=== PATIENT | female | born 1995 | race Caucasian/White ===

== ENCOUNTER → 2023-05-30 11:00 | Outpatient (CLI) | payer MEDICAID, SELFPAY | PROVIDERS: PCP Nurse Practitioner Family; Visit Provider Nurse Practitioner Family | DX: N89.8 Other specified noninflammatory disorders of vagina (principal) | CPT/HCPCS: 87086 ==

== ENCOUNTER 2023-11-27 20:39 | Outpatient (CLI) | payer MEDICAID, SELFPAY ==
[2023-11-27 17:09] LABS: Basophils # 0.1 K/mm3 (0-0.2); Basophils % 0.9 % (0.1-2.0); Eosinophils # 0.1 K/mm3 (0.0-0.4); Eosinophils % 1.8 % (0.1-12.0); Hematocrit 46.1 % (37.0-47.0); Hemoglobin 15.6 g/dL (12.2-16.2); Lymphocytes # 1.6 K/mm3 (0.7-4.5); Lymphocytes % 21.5 % (10-50); Mean Corpuscular HGB Conc 33.8 g/dL (31.8-35.4); Mean Corpuscular Volume 91.6 fl (81-99); Mean Platelet Volume 8.5 fl (7.4-10.4); Monocytes # 0.7 K/mm3 (0.1-1.0); Monocytes % 9.2 % (1.7-9.3); Neutrophils % 66.6 % (37.0-80.0); Platelet Count 359 K/mm3 (142-424); Red Blood Count 5.04 M/mm3 (4.20-5.40); Red Cell Distribution Width 12.9 % (11.5-17.5); White Blood Count 7.5 K/mm3 (4.8-10.8)
[2023-11-27 17:53] LABS: Free T4 (Free Thyroxine) 1.48 ng/dl (0.78-2.19)
[2023-11-27 19:01] LABS: Chloride 103 mmol/L (98-107); Potassium 4.4 mmoL/L (3.5-5.1); Sodium 137 mmol/L (136-145)
[2023-11-27 19:03] LABS: Blood Urea Nitrogen 15 mg/dl (7-17); Estimated Glomerular Filt Rate 98 ml/min (>60); GFR (African American) 119 ML/MIN (>60)
[2023-11-27 19:04] LABS: Alanine Aminotransferase 31 U/L (12-78); Albumin Level 4.7 g/dl (3.5-5.0); Albumin/Globulin Ratio 1.2 (1.1-1.8); Alkaline Phosphatase 65 U/L (38-126); Anion Gap 15.4 mEq/L (5-15); Aspartate Amino Transferase 38 U/L (14-36); Bilirubin,Total 0.6 mg/dl (0.2-1.3); Calcium 9.1 mg/dl (8.4-10.2); Carbon Dioxide 23 mmol/L (22.0-30.0); Globulin 3.8 g/dL (1.3-3.2); Glucose 59 mg/dl (74-100); Total Protein,Serum 8.5 g/dl (6.3-8.2)
[2023-11-27 19:23] LABS: 25-OH Vitamin D, Total 29.2 ng/mL (30-100); Triiodothryronine (T3) Uptake 33 % (23.5-40.5)
[2023-11-27 19:24] LABS: T4 (Thyroxine) 10.6 ug/dl (5.53-11.0)
[2023-11-27 19:38] LABS: Thyroid Stimulating Hormone 1.17 uIU/mL (0.465-4.68)
[2023-11-27 19:57] LABS: Vitamin B12 647 pg/mL (239-931)
[2023-11-28 08:37] LABS: FSH 1.4 mIU/mL (.); LH 2.2 mIU/mL (.); Progesterone 6.3 ng/mL (.)
[2023-12-04 02:10] LABS: Estrogen 177 pg/mL (.)
== END 2023-11-27 23:59 ==
LOC: LAB.DROPOF 20:39
PROVIDERS: PCP Nurse Practitioner Family; Visit Provider Nurse Practitioner Family
DX: R53.83 Other fatigue (principal); E55.9 Vitamin D deficiency, unspecified; R05.9 Cough, unspecified; J45.909 Unspecified asthma, uncomplicated; Z79.899 Other long term (current) drug therapy
CPT/HCPCS: 80053; 82306; 82607; 82672; 83001; 83002; 84144; 84436; 84439; 84443; 84479; 85025

== ENCOUNTER → 2024-01-28 13:47 | Outpatient (CLI) | payer MEDICAID, SELFPAY | LOC: SL 13:48 | PROVIDERS: PCP Nurse Practitioner Family; Visit Provider Nurse Practitioner Family | DX: G47.30 Sleep apnea, unspecified (principal); R53.83 Other fatigue | CPT/HCPCS: G0399 ==

== ENCOUNTER 2024-04-14 07:25 | Inpatient (IN) | payer MEDICAID, SELFPAY ==
[2024-04-14] VITALS (7 sets, daily range): BP systolic 100–131; BP diastolic 59–91; PULSE 79–100; RESP 15–22; TEMP 36.5–36.8; O2SAT 95–100; BMI 35.8; BMI 39.1
--- NOTE | 2024-04-14 07:35 | CT_ITS ---
FINAL REPORT CLINICAL HISTORY: diffuse abd pain - recent diverticulitis dx COMPARISON: Report dated 04/10/2024, films dated 03/09/2024. FINDINGS: CT OF THE ABDOMEN AND PELVIS WITH CONTRAST Axial CT images of the abdomen and pelvis were obtained after the administration of IV contrast. Coronal and sagittal reformatted images were also obtained and reviewed. This study was performed with techniques to keep radiation doses as low as reasonably achievable (ALARA). Individualized dose reduction techniques using automated exposure control or adjustment of mA and/or kV according to the patient's size were employed. Abdomen: The lung bases are clear. The heart is normal in size. There is moderate pneumoperitoneum present, significantly increased since the prior exam of April 10. The liver has an unremarkable appearance, without evidence of mass or biliary ductal dilatation. The spleen is unremarkable. No adrenal mass is present. The pancreas has an unremarkable appearance. The kidneys are normal, without evidence of mass or hydronephrosis. The aorta is normal in caliber. There is no free fluid or adenopathy. No mass or abnormal fluid collection is seen. Pelvis: The appendix is normal in appearance. There is sigmoid diverticulitis, with foci of extraluminal air adjacent to the sigmoid colon. There has been interval worsening in the adjacent inflammatory stranding in the mid pelvis. A small amount of free fluid is present in the pelvis as well, likely reactive. There is worsening adjacent bladder wall thickening when compared to the prior exam, likely inflammatory. There is no evidence of bowel obstruction. IMPRESSION: Sigmoid diverticulitis, with an increase in the amount of moderate pneumoperitoneum and extraluminal air adjacent to the sigmoid colon when compared to the prior exam of April 10. There has been interval worsening in the adjacent inflammatory stranding as well. There is also worsening of the adjacent bladder wall thickening when compared to the prior exam, likely inflammatory. A small amount of free fluid is noted in the pelvis. These results were called to Dr. Holloway in the emergency room at [facility] 04/14/2024 at 9:10 AM. Reviewed, Interpreted and Dictated by Ascencion Simon III, MD Transcribed by Maya Luther Authenticated and . [facility] [place]
--- NOTE | 2024-04-14 07:40 | ED_ITS ---
Discharge Plan Disposition Patient Disposition: Admitted Chief Complaint: Abdominal Pain Prescriptions Prescriptions: No Action cyanocobalamin (vitamin B-12) 1,000 mcg capsule 1,000 mcg PO DAILY zinc acetate 50 mg (zinc) capsule 50 mg PO DAILY Nexplanon 68 mg implant subdermal leflunomide 10 mg tablet 10 mg PO DAILY Patient Comments: TAKE 1 TABLET 1 TIME EACH DAY fluticasone propionate [Allergy Relief (fluticasone)] 50 mcg/actuation spray,suspension 1 spray intranasal DAILY Qty: 16 2RF Rx Instructions: administer into each nostril levocetirizine [Xyzal] 5 mg tablet 5 mg PO DAILY Qty: 30 2RF budesonide-formoterol [Symbicort] 80-4.5 mcg/actuation HFA aerosol inhaler 1 inh inhalation BID Qty: 10.2 2RF hydroxychloroquine 200 mg tablet See Rx Instructions PO .COMPLEX Patient Comments: TAKE 2 TABS DAILY ON FRIDAY THROUGH FRIDAY,3 TABS DAILY ON FRIDAY AND FRIDAY WITH FOOD OR MILK Rx Instructions: TAKE 2 TABS DAILY ON FRIDAY THROUGH FRIDAY,3 TABS DAILY ON FRIDAY AND FRIDAY WITH FOOD OR MILK albuterol sulfate 90 mcg/actuation HFA aerosol inhaler 2 puff inhalation Q6H PRN (Reason: shortness of breath or wheezing) Qty: 8.5 3RF ibuprofen 600 mg tablet 600 mg PO TID PRN (Reason: pain) 30 Days Qty: 90 2RF cholecalciferol (vitamin D3) 125 mcg (5,000 unit) capsule 125 mcg PO DAILY Qty: 30 4RF Clinical Impressions Clinical Impression: Pneumoperitoneum, Diverticulitis Instructions Patient Instructions: DI for Acute Abdominal Pain Discharge ED Provider: Hunter Holloway General Adult HPI General Chief complaint: Abdominal Pain Stated complaint: ABD Pain Time Seen by Provider: 04/14/24 07:29 History of Present Illness HPI narrative: Patient is a 28-year-old female presents today with abdominal pain brought in by EMS. She states that she was diagnosed with diverticulitis 1 month ago. At that time her pain was localized to her lower abdomen this was confirmed with a CT scan performed at [facility]. She was started on antibiotics that she followed up with the surgeon was doing better until yesterday suddenly around 4 PM she states that she had immediate worsening of her pain predominantly in her right lower quadrant radiating some into her vaginal area. Since that time she has been in severe pain. No fevers or chills no diarrhea she has had some constipation. No dysuria frequency urgency vaginal bleeding vaginal discharge etc. She does have a history of lupus and rheumatoid arthritis but denies any other past medical history other than that. Related Data Home Medications Medication Instructions Recorded Confirmed cyanocobalamin (vitamin B-12) 1,000 mcg PO DAILY 04/24/23 11/27/23 1,000 mcg capsule etonogestrel 68 mg subdermal subdermal 04/24/23 11/27/23 implant (Nexplanon) hydroxychloroquine 200 mg tablet See Rx Instructions PO .COMPLEX 04/24/23 11/27/23 zinc acetate 50 mg (zinc) capsule 50 mg PO DAILY 04/24/23 11/27/23 leflunomide 10 mg tablet 10 mg PO DAILY RA 11/27/23 11/27/23 Previous Rx's Medication Instructions Recorded albuterol sulfate 90 mcg/actuation 2 puff inhalation Q6H PRN 04/14/23 aerosol inhaler shortness of breath or wheezing #8.5 grams ibuprofen 600 mg tablet 600 mg PO TID PRN pain 30 days #90 11/11/23 tabs budesonide-formoterol HFA 80 1 inh inhalation BID #10.2 grams 11/27/23 mcg-4.5 mcg/actuation aerosol inhaler (Symbicort) fluticasone propionate 50 1 spray intranasal DAILY #16 grams 11/27/23 mcg/actuation nasal spray,suspension (Allergy Relief (fluticasone)) levocetirizine 5 mg tablet (Xyzal) 5 mg PO DAILY #30 tabs 11/27/23 cholecalciferol (vitamin D3) 125 125 mcg PO DAILY #30 caps 11/28/23 mcg (5,000 unit) capsule Allergies Allergy/AdvReac Type Severity Reaction Status Date / Time No Known Allergies Allergy Verified 11/27/23 10:39 [facility] Disclaimer: The information contained in this section may have been updated after the patient was seen, as this information can be updated by other users. Medical History Lupus Rheumatoid arthritis Surgical History History of oral surgery Family History Mother Tumor Father Diabetes Grandfather Diabetes Social History Smoking Status: Never smoker second hand exposure: Yes alcohol intake: current alcohol intake frequency: holidays/special occasions only current occupational status: employed Travel in the last 8 weeks: None household members: family housing: house marital status: ROS Obtained: Yes All systems reviewed & no additional complaints except as documented Physical Exam General General appearance: in distress (Tearful) Respiratory Respiratory exam: Present normal lung sounds bilaterally; Absent respiratory distress Cardiovascular Cardiovascular exam: Present regular rate and normal rhythm Abdominal Exam Abdominal exam: Present tenderness (Diffusely tender with involuntary guarding throughout her abdomen) and guarding Neurological Exam Neurological exam: Present alert and oriented X3 Medical Decision Making [place] Inquiry Pt receiving controlled substance: No Vital Signs: 04/14/24 07:41 04/14/24 07:45 04/14/24 08:15 Temperature 98.2 F Temperature Source Oral Pulse Rate 84 85 Pulse Rate [Left Radial] 95 H Respiratory Rate 15 Blood Pressure 121/76 129/80 Blood Pressure [Right Arm] 131/91 H Blood Pressure Mean 91 96 Blood Pressure Mean [Right Arm] 104 02 Sat by Pulse Oximetry 98 100 98 Oxygen Delivery Method Room Air Lab Data Lab results reviewed: Yes I reviewed the patient's lab results. Lab Results 04/14/24 07:39: WBC 16.4 H, RBC 4.72, Hgb 13.8, Hct 42.8, MCV 90.6, MCH 29.2, MCHC 32.2, RDW 13.7, Plt Count 442 H, MPV 7.2 L, Neut % (Auto) 84.5 H, Lymph % (Auto) 7.9 L, [place] % (Auto) 5.7, Eos % (Auto) 1.3, Baso % (Auto) 0.5, Neut # (Auto) 13.8 H, Lymph # (Auto) 1.3, [place] # (Auto) 0.9, Eos # (Auto) 0.2, Baso # (Auto) 0.1, Total Counted 100, Neutrophils % (Manual) 87 H, Lymphocytes % (Manual) 10, Monocytes % (Manual) 3, Platelet Estimate Slight increase, RBC Morphology Normal, Sodium 137, Potassium 4.3, Chloride 104, Carbon Dioxide 25, Anion Gap 12.3, BUN 14, Creatinine 0.60, Estimated Creat Clear 218, Estimated GFR 117, Est GFR ( Amer) 142, Glucose 120 H, Lactate 0.8, Calcium 8.8, Total Bilirubin 0.3, AST 25, ALT 20, Alkaline Phosphatase 51, Total Protein 7.6, Albumin 3.9, Globulin 3.7 H, Albumin/Globulin Ratio 1.1, Lipase 44, Serum HCG, Qual Negative 04/14/24 08:27: Urine Color Yellow, Urine Appearance Clear, Urine pH 6.0, Ur Specific [place] 1.025, Urine Protein Negative, Urine Glucose (UA) Negative, Urine Ketones Negative, Urine Blood Negative, Urine Nitrate Negative, Urine Bilirubin Negative, Urine Urobilinogen 0.2, Ur Leukocyte Esterase Negative, Urine RBC None, Urine WBC None, Ur Squamous Epith Cells 3-5, Urine Bacteria Trace 04/14/24 07:39 04/14/24 07:39 Orders (Tests/Meds): ED MEDICATIONS Generic Name Dose Route Start Last Admin Trade Name Freq PRN Reason Stop Dose Admin Piperacillin Sod/Tazobactam 100 mls @ 200 mls/hr 04/14/24 09:11 04/14/24 09:21 Sod 4.5 gm/ Sodium Chloride IV 04/14/24 09:40 200 mls/hr ONCE ONE Administration Discontinued Medications Generic Name Dose Route Start Last Admin Trade Name Freq PRN Reason Stop Dose Admin Hydromorphone HCl 0.5 mg 04/14/24 08:26 04/14/24 08:46 Hydromorphone 2mg/Ml Syringe IV 04/14/24 08:27 0.5 mg ONCE ONE Administration Hydromorphone HCl 0.5 mg 04/14/24 09:28 04/14/24 09:36 Hydromorphone 2mg/Ml Syringe IV 04/14/24 09:29 0.5 mg ONCE ONE Administration Lactated Ringer's 1,000 mls @ 999 mls/hr 04/14/24 07:45 04/14/24 07:59 Lactated Ringer's 1000 Ml Bag IV 04/14/24 08:45 999 mls/hr .Q1H1M JAVID Administration Iopamidol 75 ml 04/14/24 08:43 04/14/24 08:46 Iopamidol-370 (76%);100ml Bottle IV 04/14/24 08:44 75 ml ONCE ONE Administration Morphine Sulfate 4 mg 04/14/24 07:35 04/14/24 07:59 Morphine 4mg/Ml Syringe IV 04/14/24 07:36 4 mg ONCE ONE Administration Ondansetron HCl 4 mg 04/14/24 07:35 04/14/24 07:59 Ondansetron 4mg/2ml Vial IV 04/14/24 07:36 4 mg ONCE ONE Administration Sodium Chloride 10 ml 04/14/24 08:43 04/14/24 08:46 Sodium Chloride 0.9% 10ml Syr (Rad Only) IV 04/14/24 08:44 10 ml ONCE ONE Administration ORDERS Category Date Time Status CT abdomen pelvis w con Stat Cat Scan 04/14/24 07:35 Completed CBC w/Auto Diff [Complete Blood Count Auto Diff] Stat Lab 04/14/24 07:39 Completed CMP [Comprehensive Metabolic Panel] Stat Lab 04/14/24 07:39 Completed HCG Qualitative, Serum Stat Lab 04/14/24 07:39 Completed Lactic Acid Stat Lab 04/14/24 07:39 Completed Lipase Stat Lab 04/14/24 07:39 Completed UA [Urinalysis and Microscopic] Stat Lab 04/14/24 08:27 Completed Medical Decision Narrative: Patient is a tearful 28-year-old female presenting today by EMS for severe abdominal pain which suddenly worsened yesterday at 4 PM. With a recent diagnosis of diverticulitis my biggest concern would be a perforated viscus peritonitis. Other things in the differential would include colitis kidney stone ovarian torsion ovarian cyst rupture etc. Will get a contrasted CT scan for further evaluation and management IV fluids pain medicine nausea medicine have been administered and will reassess. Reassessment 9:[address] scan was performed which I personally interpreted also reviewed radiology read and discussed the case with [facility]. Patient has increased inflammatory changes associate with diverticulitis and significant pneumoperitoneum. This is consistent with patient's clinical exam. She was given a dose of 4.5 g of Zosyn. She is required continuous pain control. She does have leukocytosis but has no other signs or symptoms of sepsis. IV fluids have been administered. I spoke with Dr. Rawls on-call with surgery. He will take the patient to the operating room soon as he is available. In the meantime he would like for me to admit the patient to hospital medicine. Critical Care Critical Care Time Critical Care Time: Yes Attestation: On 04/14/24, the high probability of a clinically significant, sudden or life threatening deterioration of the following system(s) required my full and direct attention, intervention and personal management. The time I documented below is in addition to time spent performing reported procedures but includes the following listed in this critical care notation. Total Time Total Critical Care Time: 65
--- NOTE | 2024-04-14 07:51 | PC.NURSE ---
Called [facility] to retrieve medical records from prior visits.. Advised they would fax what they had to us shortly
[2024-04-14 07:55] LABS: Basophils # 0.1 K/mm3 (0-0.2); Basophils % 0.5 % (0.1-2.0); Eosinophils # 0.2 K/mm3 (0.0-0.4); Eosinophils % 1.3 % (0.1-12.0); Hematocrit 42.8 % (37.0-47.0); Hemoglobin 13.8 g/dL (12.2-16.2); Lymphocytes # 1.3 K/mm3 (0.7-4.5); Lymphocytes % 7.9 % (10-50); Mean Corpuscular HGB Conc 32.2 g/dL (31.8-35.4); Mean Corpuscular Hemoglobin 29.2 pg (27.0-31.2); Mean Corpuscular Volume 90.6 fl (81-99); Mean Platelet Volume 7.2 fl (7.4-10.4); Monocytes # 0.9 K/mm3 (0.1-1.0); Monocytes % 5.7 % (1.7-9.3); Neutrophils # 13.8 K/mm3 (1.8-7.8); Neutrophils % 84.5 % (37.0-80.0); Platelet Count 442 K/mm3 (142-424); Red Blood Count 4.72 M/mm3 (4.20-5.40); Red Cell Distribution Width 13.7 % (11.5-17.5); White Blood Count 16.4 K/mm3 (4.8-10.8)
[2024-04-14] MEDS: MORPHINE 4MG/ML SYRINGE 4 MG IV (07:59)
[2024-04-14] MEDS: LACTATED RINGERS 1000ML 1,000 ML 999 ML IV (07:59)
[2024-04-14] MEDS: ONDANSETRON 4MG/2ML VIAL 4 MG IV ×2 (07:59→17:06)
[2024-04-14 08:02] LABS: Chloride 104 mmol/L (98-107); Potassium 4.3 mmoL/L (3.5-5.1); Sodium 137 mmol/L (136-145)
[2024-04-14 08:03] LABS: HCG Qualitative, Serum Negative (Negative)
[2024-04-14 08:04] LABS: Blood Urea Nitrogen 14 mg/dl (7-17); Creatinine Clearance Estimated 218 mL/min (50-200); Estimated Glomerular Filt Rate 117 ml/min (>60); GFR (African American) 142 ML/MIN (>60); Lactic Acid 0.8 mmol/L (0.7-2.1)
[2024-04-14 08:05] LABS: Alanine Aminotransferase 20 U/L (12-78); Albumin Level 3.9 g/dl (3.5-5.0); Albumin/Globulin Ratio 1.1 (1.1-1.8); Alkaline Phosphatase 51 U/L (38-126); Anion Gap 12.3 mEq/L (5-15); Aspartate Amino Transferase 25 U/L (14-36); Bilirubin,Total 0.3 mg/dl (0.2-1.3); Calcium 8.8 mg/dl (8.4-10.2); Carbon Dioxide 25 mmol/L (22.0-30.0); Globulin 3.7 g/dL (1.3-3.2); Glucose 120 mg/dl (74-100); Lipase 44 U/L (23-300); Total Protein,Serum 7.6 g/dl (6.3-8.2)
[2024-04-14 08:10] LABS: MANUAL DIFFERENTIAL MANUAL DIFFERENTIAL (MANUAL DIFF)
[2024-04-14 08:31] LABS: Lymphocytes % 10 % (10-50); Monocytes % 3 % (2-9); Neutrophils % 87 % (42-76); Total Cells Counted 100
[2024-04-14 08:31] LABS: Microscopic, Urine URINE MICROSCOPIC (MICROSCOPIC)
[2024-04-14 08:32] LABS: RBC Morphology Normal
[2024-04-14 08:33] LABS: Platelet Estimate Slight Increase
[2024-04-14 08:34] LABS: Appearance,Urine CLEAR (Clear); Bilirubin,Urine Negative (Negative); Blood, Urine Negative (Negative); Color,Urine YELLOW (Yellow); Glucose,Urine (UA) Negative (Negative); Ketones,Urine Negative (Negative); Leukocyte Esterase,Urine Negative (Negative); Nitrate,Urine Negative (Negative); Protein,Urine Negative (Negative); Specific Gravity, Urine 1.025 (1.005-1.030); Urobilinogen,Urine 0.2 EU/dl (0.2)
--- NOTE | 2024-04-14 08:34 | PC.NURSE ---
pt going to CT
--- NOTE | 2024-04-14 08:36 | PC.NURSE ---
pt to CT at this time
[2024-04-14] MEDS: HYDROMORPHONE 2MG/ML SYRINGE 0.5 MG IV ×2 (08:46→09:36)
[2024-04-14] MEDS: IOPAMIDOL-370 (76%);100ML BOTTLE 75 ML IV (08:46)
[2024-04-14] MEDS: SODIUM CHLORIDE 0.9% 10ML SYR (RAD ONLY) 10 ML IV (08:46)
[2024-04-14 08:50] LABS: Bacteria,Urine Trace /lpf
--- NOTE | 2024-04-14 09:14 | PC.NURSE ---
dr walsh paged for general surgery
--- NOTE | 2024-04-14 09:18 | PC.NURSE ---
dr vogt speaking with dr walsh
--- NOTE | 2024-04-14 09:18 | PC.NURSE ---
speaking to Dr Nieves
[2024-04-14] MEDS: PIPERACILLIN/TAZO 4.5 GM in 0.9 % SODIUM CHLORIDE 100 ML IV (09:21)
--- NOTE | 2024-04-14 09:54 | PC.NURSE ---
spoke with [facility] house supervisor for bed request
--- NOTE | 2024-04-14 10:03 | PC.NURSE ---
Pt admitted to room 206 to . Acute inpt
--- NOTE | 2024-04-14 10:06 | PC.NURSE ---
attempted to call report. receiving RN will call back
--- NOTE | 2024-04-14 10:28 | PC.NURSE ---
arrived by w/c from ED
[2024-04-14] MEDS: HYDROMORPHONE 2MG/ML SYRINGE 1 MG IV ×6 (11:37→22:49)
--- NOTE | 2024-04-14 11:50 | HMH.PHAINT1 ---
Pharmacy Intervention Comments: HOME MEDICATION LIST VERIFIED USING LIST FROM OUTPATIENT PHARMACY
--- NOTE | 2024-04-14 13:01 | P.CONS_ITS ---
History of Present Illness *Admission Date: 04/14/24 *Reason for visit:: Diverticulitis *History of present illness: This is a 28-year-old female with known diverticulitis who presented to the emergency department with increasing abdominal pain. Radiographic evidence of worsening diverticulitis with free air over the liver margin noted. Forwarded from emergency department evaluation: HPI narrative: Patient is a 28-year-old female presents today with abdominal pain brought in by EMS. She states that she was diagnosed with diverticulitis 1 month ago. At that time her pain was localized to her lower abdomen this was confirmed with a CT scan performed at [facility]. She was started on antibiotics that she followed up with the surgeon was doing better until yesterday suddenly around 4 PM she states that she had immediate worsening of her pain predominantly in her right lower quadrant radiating some into her vaginal area. Since that time she has been in severe pain. No fevers or chills no diarrhea she has had some constipation. No dysuria frequency urgency vaginal bleeding vaginal discharge etc. She does have a history of lupus and rheumatoid arthritis but denies any other past medical history other than that. Medical Decision Narrative: Patient is a tearful 28-year-old female presenting today by EMS for severe abdominal pain which suddenly worsened yesterday at 4 PM. With a recent diagnosis of diverticulitis my biggest concern would be a perforated viscus peritonitis. Other things in the differential would include colitis kidney stone ovarian torsion ovarian cyst rupture etc. Will get a contrasted CT scan for further evaluation and management IV fluids pain medicine nausea medicine have been administered and will reassess. Reassessment 9:[address] scan was performed which I personally interpreted also reviewed radiology read and discussed the case with [facility]. Patient has increased inflammatory changes associate with diverticulitis and significant pneumoperitoneum. This is consistent with patient's clinical exam. She was given a dose of 4.5 g of Zosyn. She is required continuous pain control. She does have leukocytosis but has no other signs or symptoms of sepsis. IV fluids have been administered. I spoke with Dr. Rawls on-call with surgery. He will take the patient to the operating room soon as he is available. In the meantime he would like for me to admit the patient to hospital medicine.. PFSH PFS Disclaimer: The information contained in this section may have been updated after the patient was seen, as this information can be updated by other users. Medical History Lupus Rheumatoid arthritis Surgical History History of oral surgery Family History Mother Tumor Father Diabetes Grandfather Diabetes Social History (Updated 04/14/24 @ 10:57 by Argelia Haynes RN) Smoking Status: Never smoker second hand exposure: Yes alcohol intake: current alcohol intake frequency: holidays/special occasions only current occupational status: employed Travel in the last 8 weeks: None household members: family housing: house marital status: Meds Home Medications and Allergies Home Medications Medication Instructions Recorded Confirmed Type cyanocobalamin (vitamin B-12) 1,000 mcg PO DAILY 04/24/23 04/14/24 History 1,000 mcg capsule etonogestrel 68 mg subdermal 68 mg subdermal DIRECTED 04/24/23 04/14/24 History implant (Nexplanon) hydroxychloroquine 200 mg tablet 200 mg PO DIRECTED 04/24/23 04/14/24 History zinc acetate 50 mg (zinc) capsule 50 mg PO DAILY 04/24/23 04/14/24 History ibuprofen 600 mg tablet 600 mg PO TID PRN pain 30 days #90 11/11/23 04/14/24 Rx tabs budesonide-formoterol HFA 80 1 inh inhalation BID #10.2 grams 11/27/23 04/14/24 Rx mcg-4.5 mcg/actuation aerosol inhaler (Symbicort) fluticasone propionate 50 1 spray intranasal DAILY #16 grams 11/27/23 04/14/24 Rx mcg/actuation nasal spray,suspension (Allergy Relief (fluticasone)) leflunomide 10 mg tablet 10 mg PO DAILY 11/27/23 04/14/24 History levocetirizine 5 mg tablet (Xyzal) 5 mg PO DAILY #30 tabs 11/27/23 04/14/24 Rx cholecalciferol (vitamin D3) 125 125 mcg PO DAILY #30 caps 11/28/23 04/14/24 Rx mcg (5,000 unit) capsule albuterol sulfate 90 mcg/actuation 2 puff inhalation Q6HP PRN 04/14/24 04/14/24 History aerosol inhaler shortness of breath or wheezing levofloxacin 750 mg tablet 750 mg PO DAILY 04/14/24 04/14/24 History metronidazole 500 mg tablet 500 mg PO Q8H 04/14/24 04/14/24 History New Prescriptions to Start Prescriptions: Allergies Allergy/AdvReac Type Severity Reaction Status Date / Time No Known Allergies Allergy Verified 11/27/23 10:39 Exam (Inpt) Vital signs and Labs for Last 24 Hours: Temp Pulse Resp BP Pulse Ox O2 Del Method 97.7 F 79 20 119/81 97 Room Air 04/14/24 10:30 04/14/24 10:30 04/14/24 10:30 04/14/24 10:30 04/14/24 10:30 04/14/24 11:00 Laboratory Results - last 24 hr 04/14/24 07:39: WBC 16.4 H, RBC 4.72, Hgb 13.8, Hct 42.8, MCV 90.6, MCH 29.2, MCHC 32.2, RDW 13.7, Plt Count 442 H, MPV 7.2 L, Neut % (Auto) 84.5 H, Lymph % (Auto) 7.9 L, [place] % (Auto) 5.7, Eos % (Auto) 1.3, Baso % (Auto) 0.5, Neut # (Auto) 13.8 H, Lymph # (Auto) 1.3, [place] # (Auto) 0.9, Eos # (Auto) 0.2, Baso # (Auto) 0.1, Total Counted 100, Neutrophils % (Manual) 87 H, Lymphocytes % (Manual) 10, Monocytes % (Manual) 3, Platelet Estimate Slight increase, RBC Morphology Normal, Sodium 137, Potassium 4.3, Chloride 104, Carbon Dioxide 25, Anion Gap 12.3, BUN 14, Creatinine 0.60, Estimated Creat Clear 218, Estimated GFR 117, Est GFR ( Amer) 142, Glucose 120 H, Lactate 0.8, Calcium 8.8, Total Bilirubin 0.3, AST 25, ALT 20, Alkaline Phosphatase 51, Total Protein 7.6, Albumin 3.9, Globulin 3.7 H, Albumin/Globulin Ratio 1.1, Lipase 44, Serum HCG, Qual Negative 04/14/24 08:27: Urine Color Yellow, Urine Appearance Clear, Urine pH 6.0, Ur Specific [place] 1.025, Urine Protein Negative, Urine Glucose (UA) Negative, Urine Ketones Negative, Urine Blood Negative, Urine Nitrate Negative, Urine Bilirubin Negative, Urine Urobilinogen 0.2, Ur Leukocyte Esterase Negative, Urine RBC None, Urine WBC None, Ur Squamous Epith Cells 3-5, Urine Bacteria Trace I & O for Labs for Last 24 Hours: Intake & Output 04/12/24 04/13/24 04/14/24 04/15/24 11:59 11:59 11:59 11:59 Weight 224 lb 8 oz Constitutional: mild distress Head: Present normocephalic Neck: Present full ROM Respiratory: Absent respiratory distress Cardiac: Absent Tachycardia GI: Present soft and tenderness (Tenderness worse along left mid and lower abdomen); Absent guarding or rebound Results Labs 04/14/24 07:39 04/14/24 07:39 Labs: Laboratory Results - last 24 hr 04/14/24 07:39: WBC 16.4 H, RBC 4.72, Hgb 13.8, Hct 42.8, MCV 90.6, MCH 29.2, MCHC 32.2, RDW 13.7, Plt Count 442 H, MPV 7.2 L, Neut % (Auto) 84.5 H, Lymph % (Auto) 7.9 L, [place] % (Auto) 5.7, Eos % (Auto) 1.3, Baso % (Auto) 0.5, Neut # (Auto) 13.8 H, Lymph # (Auto) 1.3, [place] # (Auto) 0.9, Eos # (Auto) 0.2, Baso # (Auto) 0.1, Total Counted 100, Neutrophils % (Manual) 87 H, Lymphocytes % (Manual) 10, Monocytes % (Manual) 3, Platelet Estimate Slight increase, RBC Morphology Normal, Sodium 137, Potassium 4.3, Chloride 104, Carbon Dioxide 25, Anion Gap 12.3, BUN 14, Creatinine 0.60, Estimated Creat Clear 218, Estimated GFR 117, Est GFR ( Amer) 142, Glucose 120 H, Lactate 0.8, Calcium 8.8, Total Bilirubin 0.3, AST 25, ALT 20, Alkaline Phosphatase 51, Total Protein 7.6, Albumin 3.9, Globulin 3.7 H, Albumin/Globulin Ratio 1.1, Lipase 44, Serum HCG, Qual Negative 04/14/24 08:27: Urine Color Yellow, Urine Appearance Clear, Urine pH 6.0, Ur Specific [place] 1.025, Urine Protein Negative, Urine Glucose (UA) Negative, Urine Ketones Negative, Urine Blood Negative, Urine Nitrate Negative, Urine Bilirubin Negative, Urine Urobilinogen 0.2, Ur Leukocyte Esterase Negative, Urine RBC None, Urine WBC None, Ur Squamous Epith Cells 3-5, Urine Bacteria Trace Imaging CT scan - abdomen: report reviewed and image reviewed CT scan - pelvis: report reviewed and image reviewed Assessment and Plan *Assessment and plan (1) Diverticulitis: Status: Acute Category: Medical Code(s): K57.92 - Diverticulitis of intestine, part unspecified, without perforation or abscess without bleeding Plan: Worsening diverticulitis despite recent antibiotic therapy. I have had a long conversation with the patient and her family concerning the risks and benefits of operative intervention. I have recommended exploration. She understands the possibility of colostomy creation. After careful consideration, the patient wishes to be evaluated at a tertiary facility so that she can discuss laparoscopic approach and so that she can be evaluated by a colorectal surgeon (particularly given this diagnosis at a young age). The hospital service is efforting transfer to tertiary facility.
--- NOTE | 2024-04-14 14:48 | P.EN_ITS ---
called [facility], patient transfer denied as they will not have higher level of care, and will be the same way of procedure as the surgeon would do at [facility] Called [facility] for transfer, awaiting call back
--- NOTE | 2024-04-14 15:11 | EXP.HP ---
History of Present Illness *Admission Date: 04/14/24 *History of present illness: Patient is a 28-year-old female who presented to hospital due to severe abdominal pain, according to the patient her abdominal pain started yesterday evening, it has been getting worse, 10/10 intensity, generalized but more in the lower abdomen. Patient denied associated nausea vomiting or blood per rectum. Patient was noticed to have pneumoperitoneum, sigmoid diverticulitis. [facility] Disclaimer: The information contained in this section may have been updated after the patient was seen, as this information can be updated by other users. Medical History Lupus Rheumatoid arthritis Surgical History History of oral surgery Family History Mother Tumor Father Diabetes Grandfather Diabetes Social History (Updated 04/14/24 @ 10:57 by Argelia Haynes RN) Smoking Status: Never smoker second hand exposure: Yes alcohol intake: current alcohol intake frequency: holidays/special occasions only current occupational status: employed Travel in the last 8 weeks: None household members: family housing: house marital status: Review of Systems Review of Systems Review of systems:: pertinent systems reviewed and negative unless documented below Meds Home Medications and Allergies Home Medications Medication Instructions Recorded Confirmed Type cyanocobalamin (vitamin B-12) 1,000 mcg PO DAILY 04/24/23 04/14/24 History 1,000 mcg capsule etonogestrel 68 mg subdermal 68 mg subdermal DIRECTED 04/24/23 04/14/24 History implant (Nexplanon) hydroxychloroquine 200 mg tablet 200 mg PO DIRECTED 04/24/23 04/14/24 History zinc acetate 50 mg (zinc) capsule 50 mg PO DAILY 04/24/23 04/14/24 History ibuprofen 600 mg tablet 600 mg PO TID PRN pain 30 days #90 11/11/23 04/14/24 Rx tabs budesonide-formoterol HFA 80 1 inh inhalation BID #10.2 grams 11/27/23 04/14/24 Rx mcg-4.5 mcg/actuation aerosol inhaler (Symbicort) fluticasone propionate 50 1 spray intranasal DAILY #16 grams 11/27/23 04/14/24 Rx mcg/actuation nasal spray,suspension (Allergy Relief (fluticasone)) leflunomide 10 mg tablet 10 mg PO DAILY 11/27/23 04/14/24 History levocetirizine 5 mg tablet (Xyzal) 5 mg PO DAILY #30 tabs 11/27/23 04/14/24 Rx cholecalciferol (vitamin D3) 125 125 mcg PO DAILY #30 caps 11/28/23 04/14/24 Rx mcg (5,000 unit) capsule albuterol sulfate 90 mcg/actuation 2 puff inhalation Q6HP PRN 04/14/24 04/14/24 History aerosol inhaler shortness of breath or wheezing levofloxacin 750 mg tablet 750 mg PO DAILY 04/14/24 04/14/24 History metronidazole 500 mg tablet 500 mg PO Q8H 04/14/24 04/14/24 History New Prescriptions to Start Prescriptions: Allergies Allergy/AdvReac Type Severity Reaction Status Date / Time No Known Allergies Allergy Verified 11/27/23 10:39 Exam Data for Last 24 hours Vital signs and Labs for Last 24 Hours: Temp Pulse Resp BP Pulse Ox O2 Del Method 97.7 F 79 20 119/81 97 Room Air 04/14/24 10:30 04/14/24 10:30 04/14/24 10:30 04/14/24 10:30 04/14/24 10:30 04/14/24 14:53 Laboratory Results - last 24 hr 04/14/24 07:39: WBC 16.4 H, RBC 4.72, Hgb 13.8, Hct 42.8, MCV 90.6, MCH 29.2, MCHC 32.2, RDW 13.7, Plt Count 442 H, MPV 7.2 L, Neut % (Auto) 84.5 H, Lymph % (Auto) 7.9 L, [place] % (Auto) 5.7, Eos % (Auto) 1.3, Baso % (Auto) 0.5, Neut # (Auto) 13.8 H, Lymph # (Auto) 1.3, [place] # (Auto) 0.9, Eos # (Auto) 0.2, Baso # (Auto) 0.1, Total Counted 100, Neutrophils % (Manual) 87 H, Lymphocytes % (Manual) 10, Monocytes % (Manual) 3, Platelet Estimate Slight increase, RBC Morphology Normal, Sodium 137, Potassium 4.3, Chloride 104, Carbon Dioxide 25, Anion Gap 12.3, BUN 14, Creatinine 0.60, Estimated Creat Clear 218, Estimated GFR 117, Est GFR ( Amer) 142, Glucose 120 H, Lactate 0.8, Calcium 8.8, Total Bilirubin 0.3, AST 25, ALT 20, Alkaline Phosphatase 51, Total Protein 7.6, Albumin 3.9, Globulin 3.7 H, Albumin/Globulin Ratio 1.1, Lipase 44, Serum HCG, Qual Negative 04/14/24 08:27: Urine Color Yellow, Urine Appearance Clear, Urine pH 6.0, Ur Specific [place] 1.025, Urine Protein Negative, Urine Glucose (UA) Negative, Urine Ketones Negative, Urine Blood Negative, Urine Nitrate Negative, Urine Bilirubin Negative, Urine Urobilinogen 0.2, Ur Leukocyte Esterase Negative, Urine RBC None, Urine WBC None, Ur Squamous Epith Cells 3-5, Urine Bacteria Trace I & O for Last 24 hours: Intake & Output 04/11/24 04/12/24 04/13/24 04/14/24 23:59 23:59 23:59 23:59 Weight 101.831 kg Constitutional Constitutional: no acute distress *Routine HEENT Exam Head: Present normocephalic Eye: Present EOMI and PERRL ENT: Present mucous membranes moist *Routine Neck Exam Neck: Present supple; Absent lymphadenopathy *Routine Respiratory Exam Respiratory: Present CTA bilaterally *Routine Cardiovascular Exam Cardiovascular: Present RRR *Routine Abdominal Exam Abdominal: Present soft, normoactive bowel sounds and tenderness Comments: patient has generalized tenderness more pronounced in lower abdomen *Routine Rectal Exam Rectal:: deferred *Routine Genitalia Exam Genitalia:: deferred *Routine Extremities Exam Extremities: Absent cyanosis, clubbing or edema *Routine Skin Exam Skin: Present warm; Absent rash *Routine Neurological Exam Neurological: Present alert and oriented X3 Assessment and Plan *Assessment and plan (1) Diverticulitis: Status: Acute Category: Medical Code(s): K57.92 - Diverticulitis of intestine, part unspecified, without perforation or abscess without bleeding (2) Pneumoperitoneum: Status: Acute Category: Medical Code(s): K66.8 - Other specified disorders of peritoneum Plan Patient is a 28-year-old female who presented to hospital due to severe abdominal pain, according to the patient her abdominal pain started yesterday evening, it has been getting worse, 10/10 intensity, generalized but more in the lower abdomen. Patient denied associated nausea vomiting or blood per rectum. Patient was noticed to have pneumoperitoneum, sigmoid diverticulitis. Assessment and plan Sigmoid diverticulitis Pneumoperitoneum, extraluminal air adjacent to sigmoid colon concerning for sigmoid perforation Leukocytosis N.p.o. Start IV Zosyn IV fluids Pain control Consulted general surgery-recommends exploratory laparotomy with possibility of colostomy pouch, patient and family initially did not want colostomy bag and wanted to be transferred to tertiary care hospital, transfer will be initiated per patient request DVT prophylaxis-Lovenox
--- NOTE | 2024-04-14 16:33 | PC.NURSE ---
PT IS RESTING IN BED. ALERT AND ORIENTED X4. PT HAS BEEN TOLERATING WATER. MEDICATED PER MAR FOR ABDOMINAL DISCOMFORT. ABDOMEN SOFT/TENDER WITH RIGHT SIDED ACTIVE BOWEL SOUNDS/ABSENT ON THE LEFT WITH TENDERNESS NOTED. LUNG SOUNDS CLEAR. PT AMBULATES TO THE BATHROOM. VSS. THE PLAN PER GENERAL SURGERY IS FOR PT TO HAVE CLEAR LIQUIDS AND BE NPO AFTER MIDNIGHT FOR SURGERY TOMORROW. WILL CONTINUE TO MONITOR.
[2024-04-14] MEDS: PIPERCILLIN/TAZO 3.375 GM in 0.9 % SODIUM CHLORIDE 50 ML IV ×2 (16:59→21:31)
[2024-04-14] MEDS: 0.9 % SODIUM CHLORIDE 1000ML 1,000 ML 100 ML IV (21:32)
[2024-04-14] MEDS: ACETAMINOPHEN 325MG TAB 650 MG PO (23:26)
[2024-04-15] VITALS (24 sets, daily range): BP systolic 82–144; BP diastolic 39–92; PULSE 94–127; RESP 14–24; TEMP 36.6–37.7; O2SAT 94–100; BMI 40.5
[2024-04-15] MEDS: HYDROMORPHONE 2MG/ML SYRINGE 1 MG IV ×5 (00:27→08:34)
[2024-04-15] MEDS: HYDROMORPHONE 2MG/ML SYRINGE 0.5 MG IV ×2 (01:35→15:55)
[2024-04-15] MEDS: PIPERCILLIN/TAZO 3.375 GM in 0.9 % SODIUM CHLORIDE 50 ML IV ×4 (04:26→21:52)
[2024-04-15 04:52] LABS: Basophils # 0.1 K/mm3 (0-0.2); Basophils % 0.3 % (0.1-2.0); Eosinophils # 0.4 K/mm3 (0.0-0.4); Eosinophils % 1.1 % (0.1-12.0); Hematocrit 43.5 % (37.0-47.0); Hemoglobin 14.2 g/dL (12.2-16.2); Lymphocytes # 1.3 K/mm3 (0.7-4.5); Lymphocytes % 3.7 % (10-50); Mean Corpuscular HGB Conc 32.7 g/dL (31.8-35.4); Mean Corpuscular Hemoglobin 29.6 pg (27.0-31.2); Mean Corpuscular Volume 90.7 fl (81-99); Mean Platelet Volume 7.4 fl (7.4-10.4); Monocytes # 1.4 K/mm3 (0.1-1.0); Monocytes % 3.9 % (1.7-9.3); Neutrophils # 33.4 K/mm3 (1.8-7.8); Platelet Count 417 K/mm3 (142-424); Red Cell Distribution Width 13.7 % (11.5-17.5); White Blood Count 36.7 K/mm3 (4.8-10.8)
[2024-04-15 04:57] LABS: Chloride 102 mmol/L (98-107); Potassium 3.6 mmoL/L (3.5-5.1); Sodium 133 mmol/L (136-145)
[2024-04-15 04:58] LABS: MANUAL DIFFERENTIAL MANUAL DIFFERENTIAL (MANUAL DIFF)
[2024-04-15 05:00] LABS: Blood Urea Nitrogen 7 mg/dl (7-17); Creatinine Clearance Estimated 195 mL/min (50-200); Estimated Glomerular Filt Rate 98 ml/min (>60); GFR (African American) 119 ML/MIN (>60); Lactic Acid 0.7 mmol/L (0.7-2.1)
[2024-04-15 05:01] LABS: Anion Gap 12.6 mEq/L (5-15); Calcium 8.3 mg/dl (8.4-10.2); Carbon Dioxide 22 mmol/L (22.0-30.0); Glucose 114 mg/dl (74-100)
--- NOTE | 2024-04-15 05:24 | PC.NURSE ---
Patient is alert and oriented x4. Patient did not have any edema during this shift. Patient claimed she felt like having a bowel movement, but has not had one yet. Patient intermittently groans. Patient has consistently had pain throughout the shift and has been receiving Dilautid 1 mg IV PRN every 2 hours per JAN. She was given a warm blanket for comfort. She has also received two rounds of Zosyn during the night per JAN. At around 0110, patient had reported an increase in her abdominal pain and rated it as a 9, stating she could not wait for her next dose to be due; Alejandra was paged and ordered a one time dose of Dilautid 0.5 mg IV, given at 0135 per JAN. Patient reported a slight decrease in her pain at 0205 but rated it as a level 8 on the pain scale. She has periodically gotten up at the bedside and laid back down. At 0400, patient was up at the side of the bed again and was very tearful, rating her pain 10/10. Alejandra was paged, patient received Dilautid 1 mg IV at 0430. Patient is currently (since 0500) laying supine and sleeping in bed. She has been NPO since midnight; before her NPO status, she had been on a clear liquid diet and tolerated water and apple juice. She has not complained of nausea during this shift.
[2024-04-15 05:54] LABS: Lymphocytes % 4 % (10-50); Monocytes % 3 % (2-9); Neutrophils % 93 % (42-76); Platelet Estimate Normal; RBC Morphology Normal; Total Cells Counted 100
--- NOTE | 2024-04-15 06:38 | PC.NURSE ---
Patient is reporting nausea at this time. Administered Zofran 4mg IV per JAN.
[2024-04-15] MEDS: ONDANSETRON 4MG/2ML VIAL 4 MG IV ×3 (06:40→20:45)
--- NOTE | 2024-04-15 06:46 | PC.NURSE ---
Dr Nieves is at the bedside talking to the patient.
--- NOTE | 2024-04-15 06:57 | P.PN_ITS ---
Subjective Patient reports: no new complaints Narrative: She states that she feels about the same . She continues to have abdominal pain but believes that she may have had slight improvement after a bowel movement. Exam Data for Last 24 hours Vital signs and Labs for Last 24 Hours: Temp Pulse Resp BP Pulse Ox O2 Del Method 97.9 F 102 H 17 117/73 95 Room Air 04/15/24 04:00 04/15/24 04:00 04/15/24 04:00 04/15/24 04:00 04/15/24 04:00 04/15/24 06:48 Laboratory Results - last 24 hr 04/14/24 07:39: WBC 16.4 H, RBC 4.72, Hgb 13.8, Hct 42.8, MCV 90.6, MCH 29.2, MCHC 32.2, RDW 13.7, Plt Count 442 H, MPV 7.2 L, Neut % (Auto) 84.5 H, Lymph % (Auto) 7.9 L, [place] % (Auto) 5.7, Eos % (Auto) 1.3, Baso % (Auto) 0.5, Neut # (Auto) 13.8 H, Lymph # (Auto) 1.3, [place] # (Auto) 0.9, Eos # (Auto) 0.2, Baso # (Auto) 0.1, Total Counted 100, Neutrophils % (Manual) 87 H, Lymphocytes % (Manual) 10, Monocytes % (Manual) 3, Platelet Estimate Slight increase, RBC Morphology Normal, Sodium 137, Potassium 4.3, Chloride 104, Carbon Dioxide 25, Anion Gap 12.3, BUN 14, Creatinine 0.60, Estimated Creat Clear 218, Estimated GFR 117, Est GFR ( Amer) 142, Glucose 120 H, Lactate 0.8, Calcium 8.8, Total Bilirubin 0.3, AST 25, ALT 20, Alkaline Phosphatase 51, Total Protein 7.6, Albumin 3.9, Globulin 3.7 H, Albumin/Globulin Ratio 1.1, Lipase 44, Serum HCG, Qual Negative 04/14/24 08:27: Urine Color Yellow, Urine Appearance Clear, Urine pH 6.0, Ur Specific [place] 1.025, Urine Protein Negative, Urine Glucose (UA) Negative, Urine Ketones Negative, Urine Blood Negative, Urine Nitrate Negative, Urine Bilirubin Negative, Urine Urobilinogen 0.2, Ur Leukocyte Esterase Negative, Urine RBC None, Urine WBC None, Ur Squamous Epith Cells 3-5, Urine Bacteria Trace 04/15/24 04:43: WBC 36.7 H* D, RBC 4.80, Hgb 14.2, Hct 43.5, MCV 90.7, MCH 29.6, MCHC 32.7, RDW 13.7, Plt Count 417, MPV 7.4, Neut % (Auto) 91.0 H, Lymph % (Auto) 3.7 L, [place] % (Auto) 3.9, Eos % (Auto) 1.1, Baso % (Auto) 0.3, Neut # (Auto) 33.4 H, Lymph # (Auto) 1.3, [place] # (Auto) 1.4 H, Eos # (Auto) 0.4, Baso # (Auto) 0.1, Total Counted 100, Neutrophils % (Manual) 93 H, Lymphocytes % (Manual) 4 L, Monocytes % (Manual) 3, Platelet Estimate Normal, RBC Morphology Normal, Sodium 133 L, Potassium 3.6, Chloride 102, Carbon Dioxide 22, Anion Gap 12.6, BUN 7 D, Creatinine 0.70, Estimated Creat Clear 195, Estimated GFR 98, Est GFR ( Amer) 119, Glucose 114 H, Lactate 0.7, Calcium 8.3 L I & O for Last 24 hours: Intake & Output 04/12/24 04/13/24 04/14/24 04/15/24 11:59 11:59 11:59 11:59 Intake Total 1021 / 1021 Output Total 0 / 0 Balance 1021 / 1021 Weight 224 lb 8 oz 231 lb 11.2 oz Constitutional Constitutional: no acute distress *Routine Respiratory Exam Respiratory: Absent respiratory distress *Routine Cardiovascular Exam Cardiovascular: Present tachycardia (Minimally tachycardic) *Routine Abdominal Exam Abdominal: Present tenderness (Essentially unchanged tenderness) Progress Note: A&P Assessment and plan (1) Diverticulitis: Status: Acute Assessment and plan: Worsening leukocytosis and minimally tachycardic this AM. Otherwise, she remains stable (actually claims a slight improvement in pain after bowel movement this morning). She initially requested transfer; however, potential accepting facilities rejected the transfer. In addition, she chose to not undergo operative intervention yesterday in order to visit with family (daughter, etc.). She states that she is now ready to have surgery today . Continue antibiotics 1 L LR Exploratory laparotomy today (2) Pneumoperitoneum: Status: Acute
[2024-04-15] MEDS: LACTATED RINGERS 1000ML 1,000 ML 999 ML IV (07:39)
[2024-04-15] MEDS: 0.9 % SODIUM CHLORIDE 1000ML 1,000 ML 100 ML IV ×2 (08:50→17:01)
--- NOTE | 2024-04-15 10:58 | EXP.ANES.CKL ---
[facility] Disclaimer: The information contained in this section may have been updated after the patient was seen, as this information can be updated by other users. Medical History Lupus Rheumatoid arthritis Surgical History History of oral surgery Family History Mother Tumor Father Diabetes Grandfather Diabetes Social History (Updated 04/14/24 @ 10:57 by Argelia Haynes RN) Smoking Status: Never smoker second hand exposure: Yes alcohol intake: current alcohol intake frequency: holidays/special occasions only substance use type: denies use current occupational status: employed Travel in the last 8 weeks: None household members: family housing: house marital status: [facility] Anesthesia Checklist Patient Identification Patient Identification: Arm Band Structural Data Admitted From: Inpatient Planned Operative Procedure/s: Exploratory Laparotomy Consent for Planned Operative Procedure(s) Verified: Yes Verified Documents: Surgical Consent and History and Physical NPO Status Verified Time NPO: 00:00 Additional verifications Anesthesia Reactions: No Airway Assessment Mallampati Score:: Class II C-Spine Mobility Assessed: Yes TMJ Mobility Assessed: Yes Neurological Assessment Level of Consciousness: Awake, Alert and Appropriate Anesthesia Plan Anesthesia Risk discussed: Yes Anesthesia Plan: Verified ASA Class: III Anesthesia Type: General
[2024-04-15] MEDS: ERTAPENEM SODIUM 1 GM VIAL (11:22)
--- NOTE | 2024-04-15 13:14 | SUR.OPER ---
1216- requested family to be called and told surgery was delayed due to somewhat difficult intubation, and that surgery was just now beginning. Gary (family) called at this time. Message relayed to Gary. This RN spoke to Gary.
--- NOTE | 2024-04-15 15:05 | EXP.PN ---
Subjective *Date: 04/15/24 *Time: 15:05 Interval history: seen at bedside, no acute events overnight, no chest pain, SOB, complains of abdominal pain Exam Data for Last 24 hours Vital signs and Labs for Last 24 Hours: Temp Pulse Resp BP Pulse Ox O2 Del Method 98.2 F 97 H 16 114/73 96 Room Air 04/15/24 07:45 04/15/24 07:45 04/15/24 07:45 04/15/24 07:45 04/15/24 07:45 04/15/24 10:24 Laboratory Results - last 24 hr 04/15/24 04:43: WBC 36.7 H* D, RBC 4.80, Hgb 14.2, Hct 43.5, MCV 90.7, MCH 29.6, MCHC 32.7, RDW 13.7, Plt Count 417, MPV 7.4, Neut % (Auto) 91.0 H, Lymph % (Auto) 3.7 L, [place] % (Auto) 3.9, Eos % (Auto) 1.1, Baso % (Auto) 0.3, Neut # (Auto) 33.4 H, Lymph # (Auto) 1.3, [place] # (Auto) 1.4 H, Eos # (Auto) 0.4, Baso # (Auto) 0.1, Total Counted 100, Neutrophils % (Manual) 93 H, Lymphocytes % (Manual) 4 L, Monocytes % (Manual) 3, Platelet Estimate Normal, RBC Morphology Normal, Sodium 133 L, Potassium 3.6, Chloride 102, Carbon Dioxide 22, Anion Gap 12.6, BUN 7 D, Creatinine 0.70, Estimated Creat Clear 195, Estimated GFR 98, Est GFR ( Amer) 119, Glucose 114 H, Lactate 0.7, Calcium 8.3 L I & O for Last 24 hours: Intake & Output 04/12/24 04/13/24 04/14/24 04/15/24 23:59 23:59 23:59 23:59 Intake Total 0 / 1021 1021 / 1021 Output Total 0 / 0 0 / 0 Balance 0 1021 1021 / 1021 Weight 101.831 kg 105.097 kg Constitutional Constitutional: no acute distress *Routine HEENT Exam Head: Present normocephalic Eye: Present EOMI and PERRL ENT: Present mucous membranes moist *Routine Neck Exam Neck: Present supple; Absent lymphadenopathy *Routine Respiratory Exam Respiratory: Present CTA bilaterally *Routine Cardiovascular Exam Cardiovascular: Present RRR *Routine Abdominal Exam Abdominal: Present soft, normoactive bowel sounds and tenderness *Routine Extremities Exam Extremities: Absent cyanosis, clubbing or edema *Routine Skin Exam Skin: Present warm; Absent rash *Routine Neurological Exam Neurological: Present alert and oriented X3 Assessment and Plan *Assessment and plan (1) Diverticulitis: Status: Acute Category: Medical Code(s): K57.92 - Diverticulitis of intestine, part unspecified, without perforation or abscess without bleeding (2) Pneumoperitoneum: Status: Acute Category: Medical Code(s): K66.8 - Other specified disorders of peritoneum Plan Patient is a 28-year-old female who presented to hospital due to severe abdominal pain, according to the patient her abdominal pain started yesterday evening, it has been getting worse, 10/10 intensity, generalized but more in the lower abdomen. Patient denied associated nausea vomiting or blood per rectum. Patient was noticed to have pneumoperitoneum, sigmoid diverticulitis. Assessment and plan Sigmoid diverticulitis Pneumoperitoneum, extraluminal air adjacent to sigmoid colon concerning for sigmoid perforation Leukocytosis N.p.o. Start IV Zosyn IV fluids Pain control Patient now wants to stay at this hospital, patient transfer was denied by [facility] and [facility] as they do not recommend laparoscopic procedure for bowel perforation, patient and family requested to stay at this hospital and wants to continue with the surgery by general surgery team at [facility] DVT prophylaxis-Lovenox
--- NOTE | 2024-04-15 15:24 | P.OP_ITS ---
Date of procedure: 04/15/24 Pre-op Diagnosis:: Diverticulitis Pneumoperitoneum Post-op Diagnosis:: Same Procedure performed:: Exploratory laparotomy Partial sigmoid resection Splenic flexure takedown End colostomy Surgeon:: Rod Nieves MD WATERPROOFER HELPER:: Parviz Stiles Anesthesia: GETA Estimated blood loss (mL): 50 Operative findings:: Large perforation in mid sigmoid colon Severe inflammatory changes of surrounding colon, small bowel, and omentum Dense adhesions throughout mid and lower abdomen with projection to the pelvis secondary to above End colostomy created secondary to concerns for anastomotic viability Diverting loop ileostomy not considered secondary to severe inflammation of the entire ileum Operative note:: After informed consent was obtained the patient was taken to the operating room and placed in the supine position. General anesthesia was induced and her abdomen was prepped and draped in a sterile fashion. A midline laparotomy incision was made. A combination of sharp dissection and electrocautery was utilized to transect through the deep subcutaneous tissue and then through the fascia. The abdomen was carefully entered. Severe inflammatory changes were noted throughout the mid and lower abdomen with projection to the pelvis. Dense adhesions were encountered. The distal portion of the omentum was densely adhesed to a large perforation in the mid sigmoid colon. Surrounding small bowel was also densely adhesed. Severe inflammatory changes of all above tissue noted. Careful blunt dissection was utilized to elevate the omentum and free it from surrounding tissue. Surrounding feculent spillage was carefully evacuated. Large volume irrigation was then completed throughout the abdominal cavity. The distal omentum (severely inflamed) was resected utilizing the Enseal device. Multiple loops of small bowel (essentially the entire ileum) were adhesed and densely inflamed. Despite the severe inflammation, the small bowel did appear to be viable. No obvious perforation or significant serosal injury noted. However, potential creation of a diverting loop ileostomy was not deemed safe secondary to these inflammatory changes. The mid sigmoid was carefully elevated. A linear stapling device was utilized to transect above and below the obvious perforation with surrounding inflammatory change. The intervening mesentery was transected utilizing the Enseal device. The remaining tissue was significantly inflamed but did appear viable. The decision to forego potential anastomosis was made. The remaining sigmoid and left colon were elevated. Careful dissection bluntly and with electrocautery was utilized along the white line. Dissection continued up and around the splenic flexure in order to increase length for colostomy creation. The abdominal cavity was once again copiously irrigated with warm saline. The skin in the left lower quadrant was carefully elevated at a site deemed appropriate for colostomy creation. The skin was transected with electrocautery. The intervening adipose tissue was also resected. A cruciate incision was then made with electrocautery along the fascia. The stapled colonic margin was then brought through the cruciate incision. The colonic serosa was secured to the fascial margin with interrupted Ethibond suture. Midline fascia was then closed with #2 Novafil. Skin was closed with a combination of kelsi and 4-0 nylon. Small openings in the upper mid incision and lower mid incision were left for packing. A colostomy was then matured and dressings were applied. The patient was transferred to recovery in stable condition after extubation. Condition: stable Disposition: PACU Specimens:: Partial sigmoid colon Complications:: No immediate
--- NOTE | 2024-04-15 15:39 | EXP.ANES.I ---
[facility] Anesthesia Record Part I Anesthesia Record I Intake, IV Amount: 3,300 Hydration: Adequate Estimated blood loss (mL): 50 Urine output (mL): 700 Blood Products used (#): none Blood Pressure: 112/92 SaO2: 95 Pulse Rate: 127 Airway Patency: Patent Respiratory Rate: 24 Temperature: 98.2 F Patient is:: Drowsy and Stable Stable to PACU at:: 15:25
[2024-04-15] MEDS: MEPERIDINE 25MG/ML 1ML SYRINGE 12.5 MG IV (15:52)
[2024-04-15] MEDS: MORPHINE 10MG/ML 30ML PCA IV (17:01)
[2024-04-15] MEDS: ENOXAPARIN 40MG/0.4ML SYRINGE 40 MG SQ ×2 (18:18→20:45)
--- NOTE | 2024-04-15 18:57 | PC.NURSE ---
1814: no drainage noted to dressing that is midline. small amount of bloody drainage noted in colostomy bag. no change since arrival to unit from PACU
[2024-04-15] MEDS: PANTOPRAZOLE 40MG VIAL 40 MG IV (20:45)
[2024-04-16] VITALS (15 sets, daily range): BP systolic 101–135; BP diastolic 60–79; PULSE 99–117; RESP 15–20; TEMP 36.7–37.2; O2SAT 92–99; BMI 40.5
[2024-04-16] MEDS: 0.9 % SODIUM CHLORIDE 1000ML 1,000 ML 100 ML IV ×3 (02:15→20:48)
[2024-04-16] MEDS: MORPHINE 10MG/ML 30ML PCA IV ×3 (02:15→19:36)
[2024-04-16] MEDS: PIPERCILLIN/TAZO 3.375 GM in 0.9 % SODIUM CHLORIDE 50 ML IV ×4 (05:30→22:21)
--- NOTE | 2024-04-16 06:47 | PC.NURSE ---
DR. MOORE ON FLOOR DOING ROUNDS AND VERBAL ORDERS GIVEN TO THIS RN TO PASS ALONG TO DAYSHIFT: 1. D/C DANGELO 2. NGT TO DRAINAGE BAG IF OUTPUT IS MINIMAL AND PT IS NOT N/V, BUT DO NOT REMOVE NGT D/T POSSIBLE ILEUS 3. GET PT UP TOLERATED AND GET PT MOVING TO THE CHAIR AND BATHROOM 4. PT IS ALLOWED SIPS AND CHIPS AT THIS TIME, BUT REMAIN NPO OTHERWISE
[2024-04-16 07:11] LABS: Chloride 102 mmol/L (98-107)
[2024-04-16 07:12] LABS: Potassium 3.7 mmoL/L (3.5-5.1); Sodium 134 mmol/L (136-145)
[2024-04-16 07:14] LABS: Blood Urea Nitrogen 7 mg/dl (7-17); Creatinine Clearance Estimated 171 mL/min (50-200); Estimated Glomerular Filt Rate 84 ml/min (>60); GFR (African American) 102 ML/MIN (>60)
--- NOTE | 2024-04-16 07:14 | EXP.SURG.PN ---
Subjective Narrative: She states that she rested a little last night Exam Data for Last 24 hours Vital signs and Labs for Last 24 Hours: Temp Pulse Resp BP Pulse Ox O2 Del Method O2 Flow Rate 98.9 F 110 H 15 123/66 94 L Nasal Cannula 1 04/16/24 04:00 04/16/24 06:00 04/16/24 06:00 04/16/24 06:00 04/16/24 06:00 04/16/24 06:54 04/16/24 06:54 I & O for Last 24 hours: Intake & Output 04/13/24 04/14/24 04/15/24 04/16/24 11:59 11:59 11:59 11:59 Intake Total 1021 / 1021 5531 / 5531 Output Total 0 / 0 900 / 900 Balance 1021 / 1021 4631 / 4631 Weight 224 lb 8 oz 231 lb 11.2 oz 231 lb 11.187 oz Constitutional Constitutional: no acute distress *Routine Respiratory Exam Respiratory: Absent respiratory distress *Routine Cardiovascular Exam Cardiovascular: Present tachycardia (Mildly tachycardic) *Routine Abdominal Exam Comments: Dressings in place Progress Note: A&P Assessment and plan (1) Diverticulitis: Status: Acute (2) Pneumoperitoneum: Status: Acute Assessment and Plan Assessment and Plan for All Diagnoses:: Overall, she is relatively stable status post exploratory laparotomy and partial sigmoid resection with end colostomy creation. Follow-up a.m. labs Remove Mcdaniel catheter Nasogastric tube to drain bag Ambulate at least 4 times daily
[2024-04-16 07:15] LABS: Anion Gap 7.7 mEq/L (5-15); Calcium 7.1 mg/dl (8.4-10.2); Carbon Dioxide 28 mmol/L (22.0-30.0); Glucose 107 mg/dl (74-100)
[2024-04-16 07:24] LABS: Basophils # 0.1 K/mm3 (0-0.2); Basophils % 0.2 % (0.1-2.0); Eosinophils % 0.1 % (0.1-12.0); Hematocrit 40.3 % (37.0-47.0); Hemoglobin 13.2 g/dL (12.2-16.2); Lymphocytes # 1.9 K/mm3 (0.7-4.5); Mean Corpuscular HGB Conc 32.6 g/dL (31.8-35.4); Mean Corpuscular Hemoglobin 29.9 pg (27.0-31.2); Mean Corpuscular Volume 91.5 fl (81-99); Mean Platelet Volume 8.1 fl (7.4-10.4); Monocytes % 6.3 % (1.7-9.3); Neutrophils # 27.5 K/mm3 (1.8-7.8); Neutrophils % 87.4 % (37.0-80.0); Platelet Count 444 K/mm3 (142-424); Red Cell Distribution Width 13.8 % (11.5-17.5); White Blood Count 31.5 K/mm3 (4.8-10.8)
[2024-04-16 07:27] LABS: MANUAL DIFFERENTIAL MANUAL DIFFERENTIAL (MANUAL DIFF)
[2024-04-16] MEDS: ENOXAPARIN 40MG/0.4ML SYRINGE 40 MG SQ ×2 (09:09→20:49)
[2024-04-16 09:29] LABS: Microscopic,Cath URINE MICROSCOPIC (MICROSCOPIC)
[2024-04-16 09:33] LABS: Lymphocytes % 18 % (10-50); Neutrophils % 82 % (42-76); Total Cells Counted 100
[2024-04-16 09:35] LABS: RBC Morphology Normal
[2024-04-16 09:37] LABS: Platelet Estimate Normal
--- NOTE | 2024-04-16 09:39 | PC.NURSE ---
Patient sat up to the bedside. Tolerated well. NG removed from continuous suction and placed to gravity. Mcdaniel was removed and patient tolerated well. Patient ambulated from bedside to the chair and is currently sitting up.
--- NOTE | 2024-04-16 13:08 | P.PNANES_ITS ---
[facility] Anesthesia Record Part II Anesthesia Record Part II Discharge Time: 16:00 Destination: Medical Surgical Department PACU nurse assessment reviewed?: Yes Patient Condition:: Good Anesthesia Complications:: None Swallowing reflex intact?: Yes Airway Patency: Patent Cyanosis?: No Blood Pressure: 102/63 SaO2: 94 Respiratory Rate: 20 Pulse Rate: 105 Temperature: 98.2 F Mental Status: Alert & Oriented Pain level:: 8 Nausea and/or vomitting:: None Intake, IV Amount: 0 Hydration: Adequate
[2024-04-16 13:14] LABS: Appearance,Urine/Cath CLEAR (Clear); Bilirubin,Cath Negative (Negative); Blood, Urine/Cath Negative (Negative); Color,Urine/Cath YELLOW (Yellow); Glucose,Urine/Cath (UA) Negative (Negative); Ketones,Urine/Cath 1+ (Negative); Leukocyte Esterase,Cath Negative (Negative); Nitrate,Cath POSITIVE (Negative); Protein,Urine/Cath TRACE (Negative); Specific Gravity, Urine/Cath >= 1.030 (1.005-1.030); Urobilinogen,Cath 0.2 EU/dl (0.2)
[2024-04-16 13:35] LABS: Uric Acid Crystals,Ur/Cath 2+ /lpf
--- NOTE | 2024-04-16 14:40 | PC.NURSE ---
Patient ambulated to bathroom from chair with assistance of 2 staff. pt was able to void small amount of yellow urine. pt tolerated well. dressing unchanged from shadowed markings from start of shift. pt was then able/willing to use incentive spirometer. pt ng tube remains to gravity with drainage bag. pt family at bedside at this time as well.
--- NOTE | 2024-04-16 16:01 | EXP.PN ---
Subjective *Date: 04/16/24 *Time: 16:01 Interval history: seen at bedside, complains of Abdominal pain, no acute events overnight, s/p laparotomy Exam Data for Last 24 hours Vital signs and Labs for Last 24 Hours: Temp Pulse Resp BP Pulse Ox O2 Del Method O2 Flow Rate 98.2 F 114 H 17 123/67 98 Nasal Cannula 2 04/16/24 11:52 04/16/24 14:00 04/16/24 15:45 04/16/24 14:00 04/16/24 15:45 04/16/24 15:45 04/16/24 15:45 Laboratory Results - last 24 hr 04/15/24 12:04: Urine Color Yellow, Urine Appearance Clear, Urine pH 6.0, Ur Specific [place] >= 1.030, Urine Protein Trace, Urine Glucose (UA) Negative, Urine Ketones 1+, Urine Blood Negative, Urine Nitrate Positive, Urine Bilirubin Negative, Urine Urobilinogen 0.2, Ur Leukocyte Esterase Negative, Urine RBC None, Urine WBC None, Ur Squamous Epith Cells None, Uric Acid Crystals 2+, Urine Bacteria None 04/16/24 05:14: WBC 31.5 H*, RBC 4.40, Hgb 13.2, Hct 40.3, MCV 91.5, MCH 29.9, MCHC 32.6, RDW 13.8, Plt Count 444 H, MPV 8.1, Neut % (Auto) 87.4 H, Lymph % (Auto) 6.0 L, [place] % (Auto) 6.3, Eos % (Auto) 0.1, Baso % (Auto) 0.2, Neut # (Auto) 27.5 H, Lymph # (Auto) 1.9, [place] # (Auto) 2.0 H, Eos # (Auto) 0.0, Baso # (Auto) 0.1, Total Counted 100, Neutrophils % (Manual) 82 H, Lymphocytes % (Manual) 18, Platelet Estimate Normal, RBC Morphology Normal, Sodium 134 L, Potassium 3.7, Chloride 102, Carbon Dioxide 28, Anion Gap 7.7, BUN 7, Creatinine 0.80, Estimated Creat Clear 171, Estimated GFR 84, Est GFR ( Amer) 102, Glucose 107 H, Calcium 7.1 L I & O for Last 24 hours: Intake & Output 06/1104/14/24 04/15/24 04/16/24 23:59 23:59 23:59 23:59 Intake Total 0 / 1021 5313 / 5313 1689 / 1689 Output Total 0 / 0 500 / 500 600 / 600 Balance 0 / 1021 4813 / 4813 1089 / 1089 Weight 101.831 kg 105.097 kg 105.097 kg Constitutional Constitutional: no acute distress *Routine HEENT Exam Head: Present normocephalic Eye: Present EOMI and PERRL ENT: Present mucous membranes moist *Routine Neck Exam Neck: Present supple; Absent lymphadenopathy *Routine Respiratory Exam Respiratory: Present CTA bilaterally *Routine Cardiovascular Exam Cardiovascular: Present RRR *Routine Abdominal Exam Abdominal: Present soft and tenderness *Routine Extremities Exam Extremities: Absent cyanosis, clubbing or edema *Routine Skin Exam Skin: Present warm; Absent rash *Routine Neurological Exam Neurological: Present alert and oriented X3 Assessment and Plan *Assessment and plan (1) Diverticulitis: Status: Acute Category: Medical Code(s): K57.92 - Diverticulitis of intestine, part unspecified, without perforation or abscess without bleeding (2) Pneumoperitoneum: Status: Acute Category: Medical Code(s): K66.8 - Other specified disorders of peritoneum Plan Patient is a 28-year-old female who presented to hospital due to severe abdominal pain, according to the patient her abdominal pain started yesterday evening, it has been getting worse, 10/10 intensity, generalized but more in the lower abdomen. Patient denied associated nausea vomiting or blood per rectum. Patient was noticed to have pneumoperitoneum, sigmoid diverticulitis. Assessment and plan Sigmoid diverticulitis Pneumoperitoneum, extraluminal air adjacent to sigmoid colon concerning for sigmoid perforation Leukocytosis N.p.o. IV Zosyn IV fluids Pain control s/p surgery by GS, status post exploratory laparotomy and partial sigmoid resection with end colostomy creation. ambulate DVT prophylaxis-Lovenox
--- NOTE | 2024-04-16 16:03 | PC.NURSE ---
Patient has been up to the chair for a few hours today and tolerated well. Mcdaniel was discontinued this morning. Patient voided 100 ml of clear pale yellow urine using the bathroom. She verbalized that she would prefer to use the bedside commode, as going all the way to the bathroom was a bit much for her. Patient has ambulated 3 times today. Tolerates well, but complains of pain at incision site when moving. NG tube was removed from suction and placed to drain with gravity. Residual around 1400 showed 50ml of contents. Patient is very reliant on VARNISHING UNIT TOOL SETTER. Zosyn administered per MAR. Patient has been instructed on the use of the incentive spirometer and has been encouraged to use each time we enter the room. Patient currently has mother and at the bedside and is resting.
--- NOTE | 2024-04-16 17:53 | PC.NURSE ---
FILAMENT CUTTER pump cleared at 32ml/mg of morphine
--- NOTE | 2024-04-16 18:57 | PC.NURSE ---
pt ambulated to and from the bathroom with assistance x 1 from staff.
[2024-04-16] MEDS: PANTOPRAZOLE 40MG VIAL 40 MG IV (20:49)
[2024-04-17] VITALS (15 sets, daily range): BP systolic 108–134; BP diastolic 58–77; PULSE 90–103; RESP 12–24; TEMP 36.3–37.6; O2SAT 90–98; BMI 40.1
[2024-04-17] MEDS: PIPERCILLIN/TAZO 3.375 GM in 0.9 % SODIUM CHLORIDE 50 ML IV ×4 (04:06→22:40)
[2024-04-17] MEDS: MORPHINE 10MG/ML 30ML PCA IV ×2 (05:23→19:37)
--- NOTE | 2024-04-17 05:38 | PC.NURSE ---
Patient is currently on 1L of O2 with an O2 sat of 95. Patient has a midline dressing that is dry and intact. NG tube to gravity and Left colostomy with scant bloody drainage. Patient ambulated to the restroom three times this shift.
[2024-04-17] MEDS: 0.9 % SODIUM CHLORIDE 1000ML 1,000 ML 100 ML IV ×2 (06:45→16:40)
--- NOTE | 2024-04-17 06:50 | PC.NURSE ---
CATTLE INSPECTOR Morphine [id number]: total of 39.2 mg Completed 38 attempts, denied 42 attempts, 2 partial attempts
[2024-04-17 07:39] LABS: Chloride 106 mmol/L (98-107); Potassium 3.4 mmoL/L (3.5-5.1); Sodium 137 mmol/L (136-145)
[2024-04-17 07:42] LABS: Anion Gap 9.4 mEq/L (5-15); Basophils # 0.1 K/mm3 (0-0.2); Basophils % 0.3 % (0.1-2.0); Blood Urea Nitrogen 6 mg/dl (7-17); Calcium 7.2 mg/dl (8.4-10.2); Carbon Dioxide 25 mmol/L (22.0-30.0); Creatinine Clearance Estimated 193 mL/min (50-200); Eosinophils # 0.1 K/mm3 (0.0-0.4); Eosinophils % 0.5 % (0.1-12.0); Estimated Glomerular Filt Rate 98 ml/min (>60); GFR (African American) 119 ML/MIN (>60); Glucose 82 mg/dl (74-100); Hematocrit 33.8 % (37.0-47.0); Hemoglobin 10.8 g/dL (12.2-16.2); Lymphocytes # 1.7 K/mm3 (0.7-4.5); Lymphocytes % 8.4 % (10-50); Mean Corpuscular Hemoglobin 29.8 pg (27.0-31.2); Mean Platelet Volume 7.9 fl (7.4-10.4); Monocytes # 1.3 K/mm3 (0.1-1.0); Monocytes % 6.3 % (1.7-9.3); Neutrophils # 17.2 K/mm3 (1.8-7.8); Neutrophils % 84.5 % (37.0-80.0); Platelet Count 441 K/mm3 (142-424); Red Blood Count 3.63 M/mm3 (4.20-5.40); White Blood Count 20.3 K/mm3 (4.8-10.8)
[2024-04-17 07:49] LABS: MANUAL DIFFERENTIAL MANUAL DIFFERENTIAL (MANUAL DIFF)
[2024-04-17 09:18] LABS: Lymphocytes % 14 % (10-50); Monocytes % 6 % (2-9); Neutrophils % 80 % (42-76); Platelet Estimate Slight Increase; RBC Morphology Normal; Total Cells Counted 100
--- NOTE | 2024-04-17 09:18 | P.PN_ITS ---
Subjective *Date: 04/17/24 *Time: 09:18 Medical Exam Vital signs and Labs for Last 24 Hours: Vital Signs Temp Pulse Pulse Resp BP Pulse Ox O2 Del Method 04/17/24 09:03 Room Air 04/17/24 08:05 Room Air 04/17/24 08:00 96 H 20 111/66 98 Room Air 04/17/24 07:34 97.4 F L 04/17/24 06:48 Nasal Cannula 04/17/24 06:00 95 H 13 110/58 L 95 Nasal Cannula 04/17/24 04:43 Nasal Cannula 04/17/24 04:00 98.4 F 04/17/24 03:52 94 L Nasal Cannula 04/17/24 03:50 95 H 12 108/66 L 94 L Nasal Cannula 04/17/24 02:52 Nasal Cannula 04/17/24 02:00 98 H 14 114/65 Nasal Cannula 04/17/24 00:57 Nasal Cannula 04/17/24 00:00 98.8 F 04/17/24 00:00 100 H 04/17/24 00:00 103 H 20 111/64 91 L Room Air 04/16/24 22:54 Nasal Cannula 04/16/24 22:00 99 H 16 131/73 96 Nasal Cannula 04/16/24 21:00 Room Air 04/16/24 20:00 98.0 F 04/16/24 20:00 110 H 04/16/24 19:53 Room Air 04/16/24 18:58 Nasal Cannula 04/16/24 18:00 108 H 20 135/79 98 Nasal Cannula 04/16/24 17:00 Room Air 04/16/24 16:00 110 H 04/16/24 16:00 98.7 F 04/16/24 15:45 17 98 Nasal Cannula 04/16/24 15:00 Room Air 04/16/24 14:00 114 H 16 123/67 99 Room Air 04/16/24 13:09 20 04/16/24 13:00 Room Air 04/16/24 12:00 105 H 17 111/65 92 L Room Air 04/16/24 12:00 110 H 04/16/24 11:52 98.2 F 04/16/24 11:00 Room Air 04/16/24 10:00 106 H 18 122/69 92 L Room Air O2 Flow Rate 04/17/24 09:03 04/17/24 08:05 04/17/24 08:00 04/17/24 07:34 04/17/24 06:48 1 04/17/24 06:00 1 04/17/24 04:43 1 04/17/24 04:00 04/17/24 03:52 1 04/17/24 03:50 1 04/17/24 02:52 1 04/17/24 02:00 1 04/17/24 00:57 1 04/17/24 00:00 04/17/24 00:00 04/17/24 00:00 04/16/24 22:54 1 04/16/24 22:00 1 04/16/24 21:00 04/16/24 20:00 04/16/24 20:00 04/16/24 19:53 04/16/24 18:58 2 04/16/24 18:00 1 04/16/24 17:00 2 04/16/24 16:00 04/16/24 16:00 04/16/24 15:45 2 04/16/24 15:00 04/16/24 14:00 04/16/24 13:09 04/16/24 13:00 2 04/16/24 12:00 1 04/16/24 12:00 04/16/24 11:52 04/16/24 11:00 04/16/24 10:00 Intake and Output 04/16/24 04/17/24 04/17/24 23:59 07:59 15:59 Intake Total 881 / 2570 1200 / 1200 Output Total 550 / 1350 600 / 800 200 / 800 Balance 331 / 1220 600 / 400 -200 / 400 Intake: Intake, Other Amount 32 / 78 Intake, Total IV Amount 849 / 2492 1200 / 1200 0.9 % Sodium Chloride 1000ML 1, 799 / 2307 1100 / 1100 000 ml @ 100 mls/hr IV .Q10H JAVID Rx#:[id number] Pipercillin/Tazo 3.375 gm In 0. 50 / 185 100 / 100 9 % Sodium Chloride 50 ml @ 100 mls/hr IV Q6H JAVID Rx#:[id number] Output: Output, Urine Amount 550 / 1250 400 / 600 200 / 600 Output, Gastric Drainage Amount 200 / 200 Left Nare 200 / 200 Other: Number of Voids 0 Number of Unmeasured Voids 1 1 Weight 104.098 kg Patient Weight 04/17/24 23:59 Weight 104.098 kg Laboratory Results - last 24 hr 04/15/24 12:04: Urine Color Yellow, Urine Appearance Clear, Urine pH 6.0, Ur Specific [place] >= 1.030, Urine Protein Trace, Urine Glucose (UA) Negative, Urine Ketones 1+, Urine Blood Negative, Urine Nitrate Positive, Urine Bilirubin Negative, Urine Urobilinogen 0.2, Ur Leukocyte Esterase Negative, Urine RBC None, Urine WBC None, Ur Squamous Epith Cells None, Uric Acid Crystals 2+, Urine Bacteria None 04/16/24 05:14: Total Counted 100, Neutrophils % (Manual) 82 H, Lymphocytes % (Manual) 18, Platelet Estimate Normal, RBC Morphology Normal 04/17/24 06:23: WBC 20.3 H* D, RBC 3.63 L, Hgb 10.8 L, Hct 33.8 L, MCV 93.0, MCH 29.8, MCHC 32.0, RDW 14.0, Plt Count 441 H, MPV 7.9, Neut % (Auto) 84.5 H, Lymph % (Auto) 8.4 L, [place] % (Auto) 6.3, Eos % (Auto) 0.5, Baso % (Auto) 0.3, Neut # (Auto) 17.2 H, Lymph # (Auto) 1.7, [place] # (Auto) 1.3 H, Eos # (Auto) 0.1, Baso # (Auto) 0.1, Total Counted 100, Neutrophils % (Manual) 80 H, Lymphocytes % (Manual) 14, Monocytes % (Manual) 6, Platelet Estimate Slight increase, RBC Morphology Normal, Sodium 137, Potassium 3.4 L, Chloride 106, Carbon Dioxide 25, Anion Gap 9.4, BUN 6 L, Creatinine 0.70, Estimated Creat Clear 193, Estimated GFR 98, Est GFR ( Amer) 119, Glucose 82, Calcium 7.2 L I & O for Labs for Last 24 Hours: Intake & Output 04/14/24 04/15/24 04/16/24 04/17/24 23:59 23:59 23:59 23:59 Intake Total 0 / 1021 5313 / 5313 2570 / 2570 1200 / 1200 Output Total 0 / 0 500 / 500 1150 / 1350 800 / 800 Balance 0 / 1021 4813 / 4813 1420 / 1220 400 / 400 Weight 101.831 kg 105.097 kg 105.097 kg 104.098 kg The patient's infection will respond to the chosen ABx?: Yes Is the patient receiving the right drug, dose, and route?: Yes Could a more targeted ABx be ordered?: No
--- NOTE | 2024-04-17 09:44 | EXP.SURG.PN ---
Subjective Patient reports: feels better Exam Data for Last 24 hours Vital signs and Labs for Last 24 Hours: Temp Pulse Resp BP Pulse Ox O2 Del Method O2 Flow Rate 97.4 F L 96 H 20 111/66 98 Room Air 1 04/17/24 07:34 04/17/24 08:00 04/17/24 08:00 04/17/24 08:00 04/17/24 08:00 04/17/24 09:03 04/17/24 06:48 Laboratory Results - last 24 hr 04/15/24 12:04: Urine Color Yellow, Urine Appearance Clear, Urine pH 6.0, Ur Specific [place] >= 1.030, Urine Protein Trace, Urine Glucose (UA) Negative, Urine Ketones 1+, Urine Blood Negative, Urine Nitrate Positive, Urine Bilirubin Negative, Urine Urobilinogen 0.2, Ur Leukocyte Esterase Negative, Urine RBC None, Urine WBC None, Ur Squamous Epith Cells None, Uric Acid Crystals 2+, Urine Bacteria None 04/17/24 06:23: WBC 20.3 H* D, RBC 3.63 L, Hgb 10.8 L, Hct 33.8 L, MCV 93.0, MCH 29.8, MCHC 32.0, RDW 14.0, Plt Count 441 H, MPV 7.9, Neut % (Auto) 84.5 H, Lymph % (Auto) 8.4 L, [place] % (Auto) 6.3, Eos % (Auto) 0.5, Baso % (Auto) 0.3, Neut # (Auto) 17.2 H, Lymph # (Auto) 1.7, [place] # (Auto) 1.3 H, Eos # (Auto) 0.1, Baso # (Auto) 0.1, Total Counted 100, Neutrophils % (Manual) 80 H, Lymphocytes % (Manual) 14, Monocytes % (Manual) 6, Platelet Estimate Slight increase, RBC Morphology Normal, Sodium 137, Potassium 3.4 L, Chloride 106, Carbon Dioxide 25, Anion Gap 9.4, BUN 6 L, Creatinine 0.70, Estimated Creat Clear 193, Estimated GFR 98, Est GFR ( Amer) 119, Glucose 82, Calcium 7.2 L I & O for Last 24 hours: Intake & Output 04/14/24 04/15/24 04/16/24 04/17/24 11:59 11:59 11:59 11:59 Intake Total 1021 / 1021 5981 / 5981 2080 / 208 Output Total 0 / 0 1000 / 1000 1450 / 1450 Balance 1021 / 1021 4981 / 4981 631 / 631 Weight 224 lb 8 oz 231 lb 11.2 oz 231 lb 11.187 oz 229 lb 7.949 oz Constitutional Constitutional: no acute distress *Routine Respiratory Exam Respiratory: Absent respiratory distress *Routine Cardiovascular Exam Cardiovascular: Absent tachycardia *Routine Abdominal Exam Comments: Dressing intact. No erythema. Ostomy viable. Progress Note: A&P Assessment and plan (1) Diverticulitis: Status: Acute (2) Pneumoperitoneum: Status: Acute Assessment and Plan Assessment and Plan for All Diagnoses:: Continue to slowly improve status post exploratory laparotomy with partial sigmoid resection and end colostomy creation. She remains afebrile with stable/normal vital signs. Leukocytosis continues to improve (20.3 today). Continue antibiotics Continue to increase ambulation I discussed the possibility of nasogastric tube removal with the patient. She is worried that it would have to be replaced and prefers to wait for now Await return of bowel function
[2024-04-17] MEDS: ENOXAPARIN 40MG/0.4ML SYRINGE 40 MG SQ ×2 (09:45→20:56)
--- NOTE | 2024-04-17 12:09 | P.PN_ITS ---
Subjective *Date: 04/17/24 *Time: 12:09 Interval history: seen at bedside, complains of Abdominal pain, no acute events overnight, s/p laparotomy, has NG tube, discussed plan of care with the patient Exam Data for Last 24 hours Vital signs and Labs for Last 24 Hours: Temp Pulse Resp BP Pulse Ox O2 Del Method O2 Flow Rate 97.4 F L 95 H 22 114/61 93 L Room Air 1 04/17/24 07:34 04/17/24 10:00 04/17/24 10:00 04/17/24 10:00 04/17/24 10:00 04/17/24 10:00 04/17/24 06:48 Laboratory Results - last 24 hr 04/15/24 12:04: Urine Color Yellow, Urine Appearance Clear, Urine pH 6.0, Ur Specific [place] >= 1.030, Urine Protein Trace, Urine Glucose (UA) Negative, Urine Ketones 1+, Urine Blood Negative, Urine Nitrate Positive, Urine Bilirubin Negative, Urine Urobilinogen 0.2, Ur Leukocyte Esterase Negative, Urine RBC None, Urine WBC None, Ur Squamous Epith Cells None, Uric Acid Crystals 2+, Urine Bacteria None 04/17/24 06:23: WBC 20.3 H* D, RBC 3.63 L, Hgb 10.8 L, Hct 33.8 L, MCV 93.0, MCH 29.8, MCHC 32.0, RDW 14.0, Plt Count 441 H, MPV 7.9, Neut % (Auto) 84.5 H, Lymph % (Auto) 8.4 L, [place] % (Auto) 6.3, Eos % (Auto) 0.5, Baso % (Auto) 0.3, Neut # (Auto) 17.2 H, Lymph # (Auto) 1.7, [place] # (Auto) 1.3 H, Eos # (Auto) 0.1, Baso # (Auto) 0.1, Total Counted 100, Neutrophils % (Manual) 80 H, Lymphocytes % (Manual) 14, Monocytes % (Manual) 6, Platelet Estimate Slight increase, RBC Morphology Normal, Sodium 137, Potassium 3.4 L, Chloride 106, Carbon Dioxide 25, Anion Gap 9.4, BUN 6 L, Creatinine 0.70, Estimated Creat Clear 193, Estimated GFR 98, Est GFR ( Amer) 119, Glucose 82, Calcium 7.2 L I & O for Last 24 hours: Intake & Output 04/14/24 04/15/24 04/16/24 04/17/24 23:59 23:59 23:59 23:59 Intake Total 0 / 1021 5313 / 5313 2570 / 2570 1250 / 1250 Output Total 0 / 0 500 / 500 1150 / 1350 800 / 800 Balance 0 / 1021 4813 / 4813 1420 / 1220 450 / 450 Weight 101.831 kg 105.097 kg 105.097 kg 104.098 kg Constitutional Constitutional: no acute distress *Routine HEENT Exam Head: Present normocephalic Eye: Present EOMI and PERRL ENT: Present mucous membranes moist *Routine Neck Exam Neck: Present supple; Absent lymphadenopathy *Routine Respiratory Exam Respiratory: Present CTA bilaterally *Routine Cardiovascular Exam Cardiovascular: Present RRR *Routine Abdominal Exam Abdominal: Present soft and tenderness *Routine Extremities Exam Extremities: Absent cyanosis, clubbing or edema *Routine Skin Exam Skin: Present warm; Absent rash *Routine Neurological Exam Neurological: Present alert and oriented X3 Assessment and Plan *Assessment and plan (1) Diverticulitis: Status: Acute Category: Medical Code(s): K57.92 - Diverticulitis of intestine, part unspecified, without perforation or abscess without bleeding (2) Pneumoperitoneum: Status: Acute Category: Medical Code(s): K66.8 - Other specified disorders of peritoneum Plan Patient is a 28-year-old female who presented to hospital due to severe abdominal pain, according to the patient her abdominal pain started yesterday evening, it has been getting worse, 10/10 intensity, generalized but more in the lower abdomen. Patient denied associated nausea vomiting or blood per rectum. Patient was noticed to have pneumoperitoneum, sigmoid diverticulitis. Assessment and plan Sigmoid diverticulitis Pneumoperitoneum, extraluminal air adjacent to sigmoid colon concerning for sigmoid perforation Leukocytosis N.p.o. advance diet per surgery order blood cultures, WBC count improving, no fevers continue IV Zosyn IV fluids Pain control s/p surgery by GS, status post exploratory laparotomy and partial sigmoid resection with end colostomy creation. ambulate DVT prophylaxis-Lovenox
--- NOTE | 2024-04-17 13:42 | PC.NURSE ---
Patient able to ambulate from chair to bathroom and out to hallway. Patient ambulated from room door to exit sign on the right and back to bed.
--- NOTE | 2024-04-17 16:31 | PC.NURSE ---
VS stable, 500 emptied out of drainage bag from NG tube. Patient wanted to clamp NG tube to see how she felt overnight. No nausea or emesis noted. Pain at abdomen site, patient use of belt sander stone for pain relief. Ostomy site clean dry and intact, red tinged fluid in bag but no gas formation. Lung sounds diminished.
--- NOTE | 2024-04-17 18:53 | PC.NURSE ---
24 ml cleared from morphine tax manager cpa pump this shift
[2024-04-17] MEDS: PANTOPRAZOLE 40MG VIAL 40 MG IV (20:56)
[2024-04-18] VITALS (13 sets, daily range): BP systolic 110–143; BP diastolic 70–86; PULSE 80–100; RESP 13–22; TEMP 36.5–37.6; O2SAT 87–98; BMI 44.2
[2024-04-18] MEDS: ONDANSETRON 4MG/2ML VIAL 4 MG IV ×3 (00:55→17:30)
[2024-04-18] MEDS: 0.9 % SODIUM CHLORIDE 1000ML 1,000 ML 100 ML IV (03:28)
[2024-04-18] MEDS: PIPERCILLIN/TAZO 3.375 GM in 0.9 % SODIUM CHLORIDE 50 ML IV ×4 (04:35→22:56)
[2024-04-18] MEDS: MORPHINE 10MG/ML 30ML PCA IV ×2 (05:28→14:28)
--- NOTE | 2024-04-18 06:02 | PC.NURSE ---
Patient has tolerated room air throughout this shift. Colostomy bag has small amounts of red tinged fluid and midline dressing is dry and intact. Patient did call out complaining of nausea, and zofran was provided per JAN. Patient verbalizes relief of symptoms. Pt has ambulated to the bathroom and the halls multiple times this shift.
[2024-04-18 06:30] LABS: Basophils % 0.3 % (0.1-2.0); Eosinophils # 0.1 K/mm3 (0.0-0.4); Eosinophils % 0.8 % (0.1-12.0); Hematocrit 36.9 % (37.0-47.0); Hemoglobin 11.8 g/dL (12.2-16.2); Lymphocytes # 1.7 K/mm3 (0.7-4.5); Lymphocytes % 10.2 % (10-50); Mean Corpuscular HGB Conc 32.1 g/dL (31.8-35.4); Mean Corpuscular Hemoglobin 29.5 pg (27.0-31.2); Mean Corpuscular Volume 91.8 fl (81-99); Mean Platelet Volume 7.7 fl (7.4-10.4); Monocytes # 1.2 K/mm3 (0.1-1.0); Monocytes % 7.3 % (1.7-9.3); Neutrophils # 13.5 K/mm3 (1.8-7.8); Neutrophils % 81.4 % (37.0-80.0); Platelet Count 564 K/mm3 (142-424); Red Blood Count 4.02 M/mm3 (4.20-5.40); Red Cell Distribution Width 13.9 % (11.5-17.5); White Blood Count 16.6 K/mm3 (4.8-10.8)
[2024-04-18 06:34] LABS: MANUAL DIFFERENTIAL MANUAL DIFFERENTIAL (MANUAL DIFF)
[2024-04-18 06:56] LABS: Chloride 107 mmol/L (98-107); Potassium 3.1 mmoL/L (3.5-5.1); Sodium 139 mmol/L (136-145)
[2024-04-18 06:59] LABS: Blood Urea Nitrogen 5 mg/dl (7-17); Creatinine Clearance Estimated 113 mL/min (50-200); Eosinophils % 2 % (0-3); Estimated Glomerular Filt Rate 117 ml/min (>60); GFR (African American) 142 ML/MIN (>60); Lymphocytes % 6 % (10-50); Monocytes % 4 % (2-9); Neutrophils % 88 % (42-76); Platelet Estimate Moderate Increase; RBC Morphology Normal; Total Cells Counted 100
[2024-04-18 07:00] LABS: Anion Gap 11.1 mEq/L (5-15); Calcium 7.4 mg/dl (8.4-10.2); Carbon Dioxide 24 mmol/L (22.0-30.0); Glucose 95 mg/dl (74-100)
[2024-04-18] MEDS: ENOXAPARIN 40MG/0.4ML SYRINGE 40 MG SQ ×2 (10:00→20:11)
--- NOTE | 2024-04-18 10:21 | EXP.SURG.PN ---
Subjective Patient reports: feels better Narrative: Ambulate in hallway yesterday Exam Data for Last 24 hours Vital signs and Labs for Last 24 Hours: Temp Pulse Resp BP Pulse Ox O2 Del Method O2 Flow Rate 97.7 F 90 16 126/74 96 Room Air 1 04/18/24 08:00 04/18/24 08:00 04/18/24 08:00 04/18/24 08:00 04/18/24 08:00 04/18/24 08:25 04/17/24 22:00 Laboratory Results - last 24 hr 04/18/24 06:15: WBC 16.6 H, RBC 4.02 L, Hgb 11.8 L, Hct 36.9 L, MCV 91.8, MCH 29.5, MCHC 32.1, RDW 13.9, Plt Count 564 H D, MPV 7.7, Neut % (Auto) 81.4 H, Lymph % (Auto) 10.2, [place] % (Auto) 7.3, Eos % (Auto) 0.8, Baso % (Auto) 0.3, Neut # (Auto) 13.5 H, Lymph # (Auto) 1.7, [place] # (Auto) 1.2 H, Eos # (Auto) 0.1, Baso # (Auto) 0.0, Total Counted 100, Neutrophils % (Manual) 88 H, Lymphocytes % (Manual) 6 L, Monocytes % (Manual) 4, Eosinophils % (Manual) 2, Platelet Estimate Moderate increase, RBC Morphology Normal, Sodium 139, Potassium 3.1 L, Chloride 107, Carbon Dioxide 24, Anion Gap 11.1, BUN 5 L, Creatinine 0.60, Estimated Creat Clear 113, Estimated GFR 117, Est GFR ( Amer) 142, Glucose 95, Calcium 7.4 L I & O for Last 24 hours: Intake & Output 04/15/24 04/16/24 04/17/24 04/18/24 11:59 11:59 11:59 11:59 Intake Total 1021 / 1021 5981 / 5981 2131 / 2131 2806 / 2806 Output Total 0 / 0 1000 / 1000 1450 / 1450 1450 / 1450 Balance 1021 / 1021 4981 / 4981 681 / 681 1356 / 1356 Weight 231 lb 11.2 oz 231 lb 11.187 oz 229 lb 7.949 oz 253 lb Constitutional Constitutional: no acute distress *Routine Respiratory Exam Respiratory: Absent respiratory distress *Routine Cardiovascular Exam Cardiovascular: Absent tachycardia *Routine Abdominal Exam Comments: Dressing intact. No erythema. Ostomy viable. Air and stool in bag. Progress Note: A&P Assessment and plan (1) Diverticulitis: Status: Acute (2) Pneumoperitoneum: Status: Acute Assessment and Plan Assessment and Plan for All Diagnoses:: Continues to improve POD#3 status post exploratory laparotomy with partial sigmoid resection and end colostomy creation. She remains afebrile with stable/normal vital signs. Leukocytosis continues to improve (16.6 today). Continue antibiotics Continue to increase ambulation Remove nasogastric tube Clear liquid diet without carbonation PO pain medication (D/C MOTORCYCLE ASSEMBLER when tolerating PO pain medication)
--- NOTE | 2024-04-18 12:51 | P.PN_ITS ---
Subjective *Date: 04/18/24 *Time: 12:51 Interval history: seen at bedside, NG tube is out, started on clear liquid diet Exam Data for Last 24 hours Vital signs and Labs for Last 24 Hours: Temp Pulse Resp BP Pulse Ox O2 Del Method O2 Flow Rate 99.7 F H 87 17 137/86 96 Room Air 1 04/18/24 11:27 04/18/24 11:27 04/18/24 11:27 04/18/24 11:27 04/18/24 11:04/18/24 11:04/17/24 22:00 Laboratory Results - last 24 hr 04/18/24 06:15: WBC 16.6 H, RBC 4.02 L, Hgb 11.8 L, Hct 36.9 L, MCV 91.8, MCH 29.5, MCHC 32.1, RDW 13.9, Plt Count 564 H D, MPV 7.7, Neut % (Auto) 81.4 H, Lymph % (Auto) 10.2, [place] % (Auto) 7.3, Eos % (Auto) 0.8, Baso % (Auto) 0.3, Neut # (Auto) 13.5 H, Lymph # (Auto) 1.7, [place] # (Auto) 1.2 H, Eos # (Auto) 0.1, Baso # (Auto) 0.0, Total Counted 100, Neutrophils % (Manual) 88 H, Lymphocytes % (Manual) 6 L, Monocytes % (Manual) 4, Eosinophils % (Manual) 2, Platelet Estimate Moderate increase, RBC Morphology Normal, Sodium 139, Potassium 3.1 L, Chloride 107, Carbon Dioxide 24, Anion Gap 11.1, BUN 5 L, Creatinine 0.60, Estimated Creat Clear 113, Estimated GFR 117, Est GFR ( Amer) 142, Glucose 95, Calcium 7.4 L I & O for Last 24 hours: Intake & Output 04/15/24 04/16/24 04/17/24 04/18/24 23:59 23:59 23:59 23:59 Intake Total 5313 / 5313 2570 / 2570 2395 / 2595 1661 / 1661 Output Total 500 / 500 1150 / 1350 2049 / 2049 510 / 510 Balance 4813 / 4813 1420 / 1220 345 / 545 1151 / 1151 Weight 105.097 kg 105.097 kg 104.098 kg 114.759 kg Constitutional Constitutional: no acute distress *Routine HEENT Exam Head: Present normocephalic Eye: Present EOMI and PERRL ENT: Present mucous membranes moist *Routine Neck Exam Neck: Present supple; Absent lymphadenopathy *Routine Respiratory Exam Respiratory: Present CTA bilaterally *Routine Cardiovascular Exam Cardiovascular: Present RRR *Routine Abdominal Exam Abdominal: Present soft and tenderness *Routine Extremities Exam Extremities: Absent cyanosis, clubbing or edema *Routine Skin Exam Skin: Present warm; Absent rash *Routine Neurological Exam Neurological: Present alert and oriented X3 Assessment and Plan *Assessment and plan (1) Diverticulitis: Status: Acute Category: Medical Code(s): K57.92 - Diverticulitis of intestine, part unspecified, without perforation or abscess without bleeding (2) Pneumoperitoneum: Status: Acute Category: Medical Code(s): K66.8 - Other specified disorders of peritoneum Plan Patient is a 28-year-old female who presented to hospital due to severe abdominal pain, according to the patient her abdominal pain started yesterday evening, it has been getting worse, 10/10 intensity, generalized but more in the lower abdomen. Patient denied associated nausea vomiting or blood per rectum. Patient was noticed to have pneumoperitoneum, sigmoid diverticulitis. Assessment and plan Sigmoid diverticulitis Pneumoperitoneum, extraluminal air adjacent to sigmoid colon concerning for sigmoid perforation Leukocytosis advance diet per surgery,now on CLD, NG tube is out order blood cultures, WBC count improving, no fevers continue IV Zosyn IV fluids Pain control s/p surgery by GS, status post exploratory laparotomy and partial sigmoid resection with end colostomy creation. ambulate DVT prophylaxis-Lovenox NG tube is out, started on clear liquid diet wean off of pain pump
--- NOTE | 2024-04-18 16:19 | PC.NURSE ---
VS stable and patient remained on room air. Patient educated on importance of using incentive spirometer, patient stated she was deep breathing on her own regularly. Reinforced education about the importance of IS use to help prevent pneumonia. Patient ambulated to bathroom from bed a couple times during shift. NG tube removed and patient tolerating clear liquids. Zofran given once shortly after NG was removed, no emesis noted. Ostomy clean dry and intact, producing stool and gas during shift. Ostomy bag burped three times this shift. IV antibiotics given, abdomen soft, no distention noted. Dressing clean dry and intact, no drainage noted.
--- NOTE | 2024-04-18 16:41 | PC.NURSE ---
Patient able to amb[facility] from room [facility].
[2024-04-18] MEDS: HYDROCODONE/APAP 5/325 MG TABLET 1 TAB PO (17:57)
--- NOTE | 2024-04-18 18:54 | PC.NURSE ---
40 mg cleared from painter foreman pump
[2024-04-18] MEDS: PANTOPRAZOLE 40MG VIAL 40 MG IV (20:12)
[2024-04-19] VITALS (8 sets, daily range): BP systolic 106–138; BP diastolic 68–81; PULSE 70–92; RESP 12–18; TEMP 36.4–36.9; O2SAT 86–100; BMI 44.5
[2024-04-19] MEDS: HYDROCODONE/APAP 5/325 MG TABLET 2 TAB PO ×5 (00:26→21:47)
[2024-04-19] MEDS: PIPERCILLIN/TAZO 3.375 GM in 0.9 % SODIUM CHLORIDE 50 ML IV ×4 (04:48→22:27)
[2024-04-19] MEDS: ONDANSETRON 4MG/2ML VIAL 4 MG IV ×2 (05:50→21:41)
--- NOTE | 2024-04-19 06:25 | PC.NURSE ---
Patient has had a great night. Patient got a bed bath and walked some in the halls. Patient has been using oral pain medication and has decreased significantly on the NURSERY RN pump. Patient is nauseas on and off but she does tolerate it. no other concerns
--- NOTE | 2024-04-19 06:45 | PC.NURSE ---
12 mg of morphine cleared from MASTER DATA ANALYST pump this shift
--- NOTE | 2024-04-19 08:09 | EXP.SURG.PN ---
Subjective Patient reports: no new complaints and feels better Narrative: No nausea or vomiting status post removal of nasogastric tube Exam Data for Last 24 hours Vital signs and Labs for Last 24 Hours: Temp Pulse Resp BP Pulse Ox O2 Del Method O2 Flow Rate 97.6 F 87 13 138/81 91 L Nasal Cannula 1 04/19/24 04:00 04/19/24 06:00 04/19/24 06:00 04/19/24 06:00 04/19/24 06:00 04/19/24 07:46 04/19/24 07:46 I & O for Last 24 hours: Intake & Output 04/16/24 04/17/24 04/18/24 04/19/24 11:59 11:59 11:59 11:59 Intake Total 5981 / 5981 2131 / 2131 2806 / 2806 1568 / 1568 Output Total 1000 / 1000 1450 / 1450 1760 / 1760 400 / 400 Balance 4981 / 4981 681 / 681 1046 / 1046 1168 / 1168 Weight 231 lb 11.187 oz 229 lb 7.949 oz 253 lb 254 lb 9 oz Microbiology Reports for the Last 24 Hours: Microbiology 04/17/24 14:03 Blood Blood Culture - Preliminary NO GROWTH AFTER 24 HOURS 04/17/24 12:53 Blood Blood Culture - Preliminary NO GROWTH AFTER 24 HOURS Constitutional Constitutional: no acute distress *Routine Respiratory Exam Respiratory: Absent respiratory distress *Routine Cardiovascular Exam Cardiovascular: Absent tachycardia *Routine Abdominal Exam Comments: Dressing intact. No erythema. Ostomy viable. Air and stool in bag. Progress Note: A&P Assessment and plan (1) Diverticulitis: Status: Acute Assessment and Plan Assessment and Plan for All Diagnoses:: Continues to improve POD#4 status post exploratory laparotomy with partial sigmoid resection and end colostomy creation. She remains afebrile with stable/normal vital signs. Continue antibiotics Continue to increase ambulation Full liquid diet without carbonation D/C PRINTING PRESSMAN
[2024-04-19] MEDS: ENOXAPARIN 40MG/0.4ML SYRINGE 40 MG SQ ×2 (09:37→21:34)
--- NOTE | 2024-04-19 13:19 | EXP.PN ---
Subjective *Date: 04/19/24 *Time: 13:19 Interval history: seen at bedside, out of ICU. memtions she is moving in the room and having BMs in colostomy bag Exam Data for Last 24 hours Vital signs and Labs for Last 24 Hours: Temp Pulse Resp BP Pulse Ox O2 Del Method O2 Flow Rate 98.0 F 82 18 106/72 L 97 Room Air 1 04/19/24 11:48 04/19/24 11:48 04/19/24 11:48 04/19/24 11:48 04/19/24 11:48 04/19/24 12:50 04/19/24 07:46 I & O for Last 24 hours: Intake & Output 04/16/24 04/17/24 04/18/24 04/19/24 23:59 23:59 23:59 23:59 Intake Total 2570 / 2570 2395 / 2595 2579 / 2729 650 / 650 Output Total 1150 / 1350 2050 / 2050 910 / 910 200 / 200 Balance 1420 / 1220 345 / 545 1669 / 1819 450 / 450 Weight 105.097 kg 104.098 kg 114.759 kg 115.468 kg Microbiology Reports for the Last 24 Hours: Microbiology 04/17/24 12:53 Blood Blood Culture - Preliminary NO GROWTH AFTER 48 HOURS 04/17/24 14:03 Blood Blood Culture - Preliminary NO GROWTH AFTER 24 HOURS Constitutional Constitutional: no acute distress *Routine HEENT Exam Head: Present normocephalic Eye: Present EOMI and PERRL ENT: Present mucous membranes moist *Routine Neck Exam Neck: Present supple; Absent lymphadenopathy *Routine Respiratory Exam Respiratory: Present CTA bilaterally *Routine Cardiovascular Exam Cardiovascular: Present RRR *Routine Abdominal Exam Abdominal: Present soft and tenderness Comments: colostomy bag is attached *Routine Extremities Exam Extremities: Absent cyanosis, clubbing or edema *Routine Skin Exam Skin: Present warm; Absent rash *Routine Neurological Exam Neurological: Present alert and oriented X3 Assessment and Plan *Assessment and plan (1) Diverticulitis: Status: Acute Category: Medical Code(s): K57.92 - Diverticulitis of intestine, part unspecified, without perforation or abscess without bleeding (2) Pneumoperitoneum: Status: Acute Category: Medical Code(s): K66.8 - Other specified disorders of peritoneum Plan Patient is a 28-year-old female who presented to hospital due to severe abdominal pain, according to the patient her abdominal pain started yesterday evening, it has been getting worse, 10/10 intensity, generalized but more in the lower abdomen. Patient denied associated nausea vomiting or blood per rectum. Patient was noticed to have pneumoperitoneum, sigmoid diverticulitis. Assessment and plan Sigmoid diverticulitis Pneumoperitoneum, extraluminal air adjacent to sigmoid colon concerning for sigmoid perforation Leukocytosis advance diet per surgery,now on FLD, NG tube is out order blood cultures, WBC count improving, no fevers continue IV Zosyn - WBC count is improving IV fluids Pain control s/p surgery by GS, status post exploratory laparotomy and partial sigmoid resection with end colostomy creation. ambulate in room, upto chair DVT prophylaxis-Lovenox NG tube is out, started on Full liquid diet wean off of pain pump, mobility, DC when ok with GS
--- NOTE | 2024-04-19 14:05 | CARE MANAGER ---
Addendum entered by Opal Chamberlain RN 05/03/24 13:52: I have spoken with Francie almost every day since she has been home. She has received 2 sample packs of supplies from [employer] (i verified this with her today). I instructed her last week to call [employer] the day after she got the sample pack to discuss what supplies she needed to order.? I told her to call me back if she didn't get them. She didn't call back for supplies but did call back for another reason on Friday and I forwarded her to surgeon's office for that. I called her again this morning. She verified she did get the supplies, but she says [employer] is not answering. I verified the phone number with her and she has the correct number. I cannot order the supplies for her. She has gone to Dr. Linton's office today and told them she is out of supplies after I discussed with her how to order her supplies and what she needed to do. Addendum entered by Opal Chamberlain RN 04/21/24 10:08: [employer] states the started kit will be delivered today and they have their follow up call scheduled for Friday. Addendum entered by Opal Chamberlain RN 04/19/24 15:01: Contacted [employer] and they are sending sample kit with colostomy supplies. They will follow up with the patient and get her set up with a company to mail supplies after the initial supplies are sent. RN aware and going to tell patient. MINE Lam Original Note: Spoke with patient regarding discharge plans. Discussed colostomy supplies and patient is agreeable to [employer]. I cannot order these yet as could not locate stoma measurements. Nursing aware and will obtain these with dressing change tonight. Discussed that she is going to require daily dressing changes and due to insurance is not available for home health services. The patient states that her mother can help her. Will continue to follow while admitted. MINE Lam
--- NOTE | 2024-04-19 16:39 | PC.NURSE ---
Addendum entered by Argelia Haynes RN 04/19/24 17:46: NOTIFIED ABOUT PT'S LUNG SOUNDS. CXR ORDERED. RADIOLOGY NOTIFIED. Original Note: PT IS RESTING IN BED WITH FAMILY AT BEDSIDE. ALERT AND ORIENTED X4. PT IS TOLERATING FULL LIQUIDS BUT IS ONLY ABLE TO TAKE IN SMALL AMOUNT AT A TIME. MIDLINE INCISION NOTED WITH DRESSING C/D/I. MEDICATED PER MAR FOR DISCOMFORT. PRESCHOOL AIDE PUMP AND IVF'S DC'S THIS MORNING. PT HAS AMBULATED TO THE BATHROOM AND IN THE GUADARRAMA THIS SHIFT. LUNG SOUNDS DIMINISHED WITH SCATTERED RHONCHI. PT HAS BEEN ENCOURAGED TO USE INCENTIVE SPIROMETER. WILL CONTINUE TO MONITOR.
--- NOTE | 2024-04-19 16:45 | XR_ITS ---
PROCEDURE INFORMATION: Exam: XR Chest Exam date and time: 04/19/2024 5:43 PM Age: 28 years old Clinical indication: Wheezing; Additional info: Wheezing/rhonchi TECHNIQUE: Imaging protocol: Radiologic exam of the chest. Views: 2 views. COMPARISON: CT ABDOMEN PELVIS W CON 04/14/2024 8:41 AM FINDINGS: Lungs: Low lung volumes. No consolidation. Pleural spaces: No pleural effusion. No pneumothorax. Heart/Mediastinum: No cardiomegaly. Bones/joints: Unremarkable. IMPRESSION: No acute pulmonary findings.
[2024-04-19] MEDS: PANTOPRAZOLE 40MG VIAL 40 MG IV (21:34)
--- NOTE | 2024-04-19 23:19 | PC.NURSE ---
pt ambulated 50 ft with staff stand-by. erin akins
[2024-04-20] VITALS: BP 122/77; PULSE 85; RESP 16; TEMP 36.9; O2SAT 95
[2024-04-20] MEDS: MORPHINE 2MG/ML SYRINGE 1 MG IV (02:24)
[2024-04-20 04:00] VITALS: BP 119/68; PULSE 78; RESP 18; TEMP 36.8; O2SAT 95; BMI 43.6
[2024-04-20] MEDS: PIPERCILLIN/TAZO 3.375 GM in 0.9 % SODIUM CHLORIDE 50 ML IV (05:45)
[2024-04-20] MEDS: HYDROCODONE/APAP 5/325 MG TABLET 2 TAB PO ×2 (05:51→15:59)
--- NOTE | 2024-04-20 06:50 | PC.NURSE ---
pt ambulated in ye 50 ft, erin well, pain treated per jan, reported bout of nausea, zofran given, vss, a.febrile, pt with encouragement from nursing staff was more hands on during change of ostomy. surgical incision drsg changed. pt was asking for sandwich for hs snack, pt made aware she is still to follow a full liquid diet, pt agreeable. pt has small amt of soft stool, second emptying of ostomy bag stool was liquid
[2024-04-20 06:59] LABS: Basophils # 0.1 K/mm3 (0-0.2); Basophils % 0.3 % (0.1-2.0); Eosinophils # 0.2 K/mm3 (0.0-0.4); Eosinophils % 0.8 % (0.1-12.0); Hematocrit 33.5 % (37.0-47.0); Lymphocytes # 1.2 K/mm3 (0.7-4.5); Lymphocytes % 6.6 % (10-50); Mean Corpuscular HGB Conc 32.8 g/dL (31.8-35.4); Mean Corpuscular Hemoglobin 29.8 pg (27.0-31.2); Mean Corpuscular Volume 90.8 fl (81-99); Mean Platelet Volume 7.1 fl (7.4-10.4); Monocytes % 5.1 % (1.7-9.3); Neutrophils # 16.5 K/mm3 (1.8-7.8); Neutrophils % 87.3 % (37.0-80.0); Platelet Count 569 K/mm3 (142-424); Red Blood Count 3.69 M/mm3 (4.20-5.40); White Blood Count 18.9 K/mm3 (4.8-10.8)
[2024-04-20 07:04] LABS: MANUAL DIFFERENTIAL MANUAL DIFFERENTIAL (MANUAL DIFF)
[2024-04-20 07:21] LABS: Alanine Aminotransferase 17 U/L (12-78); Albumin Level 2.6 g/dl (3.5-5.0); Albumin/Globulin Ratio 0.8 (1.1-1.8); Alkaline Phosphatase 62 U/L (38-126); Aspartate Amino Transferase 31 U/L (14-36); Bilirubin,Total 0.3 mg/dl (0.2-1.3); Blood Urea Nitrogen 3 mg/dl (7-17); Calcium 7.4 mg/dl (8.4-10.2); Carbon Dioxide 30 mmol/L (22.0-30.0); Creatinine Clearance Estimated 136 mL/min (50-200); Estimated Glomerular Filt Rate 145 ml/min (>60); GFR (African American) 175 ML/MIN (>60); Globulin 3.1 g/dL (1.3-3.2); Glucose 89 mg/dl (74-100); Total Protein,Serum 5.7 g/dl (6.3-8.2)
--- NOTE | 2024-04-20 07:39 | P.PN_ITS ---
Subjective Patient reports: no new complaints, feels better and tolerating liquids well Exam Data for Last 24 hours Vital signs and Labs for Last 24 Hours: Temp Pulse Resp BP Pulse Ox O2 Del Method O2 Flow Rate 98.3 F 78 18 119/68 95 Room Air 1 04/20/24 04:00 04/20/24 04:00 04/20/24 04:00 04/20/24 04:00 04/20/24 04:00 04/20/24 06:47 04/19/24 07:46 Laboratory Results - last 24 hr 04/20/24 06:01: WBC 18.9 H, RBC 3.69 L, Hgb 11.0 L, Hct 33.5 L, MCV 90.8, MCH 29.8, MCHC 32.8, RDW 14.0, Plt Count 569 H, MPV 7.1 L, Neut % (Auto) 87.3 H, Lymph % (Auto) 6.6 L, [place] % (Auto) 5.1, Eos % (Auto) 0.8, Baso % (Auto) 0.3, Neut # (Auto) 16.5 H, Lymph # (Auto) 1.2, [place] # (Auto) 1.0, Eos # (Auto) 0.2, Baso # (Auto) 0.1 I & O for Last 24 hours: Intake & Output 04/17/24 04/18/24 04/19/24 04/20/24 11:59 11:59 11:59 11:59 Intake Total 2131 / 2131 2806 / 2806 1568 / 1568 630 / 630 Output Total 1450 / 1450 1760 / 1760 600 / 600 0 / 0 Balance 681 / 681 1046 / 1046 968 / 968 630 / 630 Weight 229 lb 7.949 oz 253 lb 254 lb 9 oz 249 lb 4.8 oz Microbiology Reports for the Last 24 Hours: Microbiology 04/17/24 14:03 Blood Blood Culture - Preliminary NO GROWTH AFTER 48 HOURS 04/17/24 12:53 Blood Blood Culture - Preliminary NO GROWTH AFTER 48 HOURS Constitutional Constitutional: no acute distress *Routine Respiratory Exam Respiratory: Absent respiratory distress *Routine Cardiovascular Exam Cardiovascular: Absent tachycardia *Routine Abdominal Exam Abdominal: Present soft Comments: No erythema. Ostomy viable. Stool and air in bag. Progress Note: A&P Assessment and plan (1) Diverticulitis: Status: Acute (2) Pneumoperitoneum: Status: Acute Assessment and Plan Assessment and Plan for All Diagnoses:: Overall stable POD#5 status post exploratory laparotomy with partial sigmoid resection and end colostomy creation. She remains afebrile with stable/normal vital signs. Leukocytosis somewhat worse this a.m. Repeat CBC in a.m. Continue antibiotics (discontinue Zosyn and start Invanz) Continue to increase ambulation Remain on full liquid diet without carbonation
[2024-04-20 07:56] LABS: Anion Gap 6.7 mEq/L (5-15); Chloride 101 mmol/L (98-107); Sodium 135 mmol/L (136-145)
[2024-04-20 08:00] VITALS: BP 111/70; PULSE 80; RESP 22; TEMP 37.1; O2SAT 95
[2024-04-20] MEDS: KETOROLAC 30MG/ML VIAL 15 MG IV ×3 (08:14→19:49)
[2024-04-20] MEDS: ERTAPENEM SODIUM 1 GM in 0.9 % SODIUM CHLORIDE 50 ML IV (08:15)
[2024-04-20] MEDS: ENOXAPARIN 40MG/0.4ML SYRINGE 40 MG SQ ×2 (08:15→20:37)
[2024-04-20 08:23] LABS: Potassium 2.7 mmoL/L (3.5-5.1)
[2024-04-20 08:54] LABS: Lymphocytes % 7 % (10-50); Monocytes % 6 % (2-9); Neutrophils % 87 % (42-76); Platelet Estimate Moderate Increase; RBC Morphology Normal; Total Cells Counted 100
[2024-04-20] MEDS: KCl 10mEq/100ml 100 ML 100 MEQ IV ×3 (10:45→14:16)
[2024-04-20 12:00] VITALS: BP 120/74; PULSE 83; RESP 18; TEMP 36.8; O2SAT 97
[2024-04-20] MEDS: POTASSIUM CHLORIDE 20MEQ TAB 20 MEQ PO ×2 (12:00→20:36)
[2024-04-20] MEDS: ONDANSETRON 4MG/2ML VIAL 4 MG IV (14:19)
[2024-04-20 16:00] VITALS: BP 142/84; PULSE 97; RESP 22; TEMP 36.9; O2SAT 96
--- NOTE | 2024-04-20 17:07 | P.PN_ITS ---
Subjective *Date: 04/20/24 *Time: 17:07 Interval history: Having good output from her ostomy. Afebrile overnight. Stable on room air. White cell count bumped a little bit today to 18,000. No nausea or vomiting. Tolerating full liquid diet. Medical Exam Vital signs and Labs for Last 24 Hours: Vital Signs Temp Pulse Resp BP Pulse Ox O2 Del Method 04/20/24 14:48 Room Air 04/20/24 12:00 98.2 F 83 18 120/74 97 Room Air 04/20/24 11:54 Room Air 04/20/24 10:20 Room Air 04/20/24 08:54 Room Air 04/20/24 08:00 98.7 F 80 22 111/70 95 Room Air 04/20/24 08:00 Room Air 04/20/24 06:47 Room Air 04/20/24 05:00 Room Air 04/20/24 04:00 98.3 F 78 18 119/68 95 Room Air 04/20/24 03:00 Room Air 04/20/24 01:00 Room Air 04/20/24 00:00 98.4 F 85 16 122/77 95 Room Air 04/19/24 23:00 Room Air 04/19/24 21:00 Room Air 04/19/24 20:26 Room Air 04/19/24 19:57 98.1 F 74 16 114/68 97 Room Air 04/19/24 18:37 Room Air Intake and Output 04/20/24 04/20/24 04/20/24 07:59 15:59 23:59 Intake Total 600 / 600 Output Total 0 / 0 0 / 0 Balance 0 / 600 600 / 600 Intake: Intake, Oral Amount 300 / 300 Intake, Total IV Amount 300 / 300 KCl 10mEq/100ml 100 ml @ 100 300 / 300 mls/hr IV Q1H [facility] Rx#:[id number] Output: Output, Urine Amount 0 / 0 0 / 0 Other: Number of Unmeasured Voids 1 1 Number of Bowel Movements 1 Weight 113.081 kg Patient Weight 04/20/24 23:59 Weight 113.081 kg Laboratory Results - last 24 hr 04/20/24 06:01: WBC 18.9 H, RBC 3.69 L, Hgb 11.0 L, Hct 33.5 L, MCV 90.8, MCH 29.8, MCHC 32.8, RDW 14.0, Plt Count 569 H, MPV 7.1 L, Neut % (Auto) 87.3 H, Lymph % (Auto) 6.6 L, [place] % (Auto) 5.1, Eos % (Auto) 0.8, Baso % (Auto) 0.3, Neut # (Auto) 16.5 H, Lymph # (Auto) 1.2, [place] # (Auto) 1.0, Eos # (Auto) 0.2, Baso # (Auto) 0.1, Total Counted 100, Neutrophils % (Manual) 87 H, Lymphocytes % (Manual) 7 L, Monocytes % (Manual) 6, Platelet Estimate Moderate increase, RBC Morphology Normal, Sodium 135 L, Potassium 2.7 L*, Chloride 101, Carbon Dioxide 30, Anion Gap 6.7, BUN 3 L D, Creatinine 0.50 L, Estimated Creat Clear 136, Estimated GFR 145, Est GFR ( Amer) 175 D, Glucose 89, Calcium 7.4 L, Magnesium 2.0, Total Bilirubin 0.3, AST 31, ALT 17, Alkaline Phosphatase 62, Total Protein 5.7 L, Albumin 2.6 L, Globulin 3.1, Albumin/Globulin Ratio 0.8 L I & O for Labs for Last 24 Hours: Intake & Output 04/17/24 04/18/24 04/19/24 04/20/24 23:59 23:59 23:59 23:59 Intake Total 2395 / 2595 2579 / 2729 1280 / 1280 600 / 600 Output Total 0 / 2049 910 / 910 200 / 200 0 / 0 Balance 345 / 545 1669 / 1819 1080 / 1080 600 / 600 Weight 104.098 kg 114.759 kg 115.4 kg 113.081 kg Microbiology Reports for the Last 24 Hours: Microbiology 04/17/24 14:03 Blood Blood Culture - Preliminary NO GROWTH AFTER 48 HOURS Constitutional: Present no acute distress, morbidly obese and chronically ill appearing Head: Present atraumatic and normocephalic ENT: Present normal exam Neck: Present normal inspection Respiratory: Present normal respiratory effort; Absent rhonchi, wheezes or crackles Cardiac: Present Reg Rate and Rhythm GI: Present soft and normal bowel sounds; Absent distention or tenderness Comments:: Ostomy in left lower abdomen, pink and healthy appearing with brown liquid stool in bag Extremities: Present normal inspection and full ROM Skin: Present intact; Absent erythema Neuro: Present Grossly Intact, alert, awake, oriented x 3 and moves all extremities Assessment and Plan *Assessment and plan (1) Diverticulitis: Status: Acute Category: Medical Code(s): K57.92 - Diverticulitis of intestine, part unspecified, without perforation or abscess without bleeding (2) Status post colostomy: Status: Acute Category: Surgical Code(s): Z93.3 - Colostomy status (3) Pneumoperitoneum: Status: Acute Category: Medical Code(s): K66.8 - Other specified disorders of peritoneum (4) Lupus: Status: Chronic Category: Medical Code(s): M32.9 - Systemic lupus erythematosus, unspecified (5) 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 Patient denied associated nausea vomiting or blood per rectum. Patient was noticed to have pneumoperitoneum, sigmoid diverticulitis. Status post creation of colostomy with partial bowel obstruction. Tolerated procedure well. Surgery assisting with care. Slowly advancing diet. Problems addressed as follows: Sigmoid diverticulitis Pneumoperitoneum, extraluminal air adjacent to sigmoid colon concerning for sigmoid perforation Leukocytosis Status post colostomy -Tolerated procedure well on 04/15. Discussed case with surgery today, will slo wly advance diet. Continue with full liquids today. Would like to see white cell count coming down before advancing further. Having adequate colostomy output. Educate family on ostomy care. -Repeat CBC, CMP, magnesium ordered for the morning. White cell count of 18.9. Antibiotics broadened to Invanz. -On oral pain regimen. Discontinued DYE COLORIST DYER pump. Monitor for toxicity Hypokalemia: Potassium 2.7. Will place IV and oral today. Repeat level ordered for the morning. DVT prophylaxis-Lovenox Full code Full liquid diet
--- NOTE | 2024-04-20 18:12 | PC.NURSE ---
Pt is aox4, up with assist times one, 90's on ra, 20g R UA SL, three runs of potassium today for a K OF 2.7, colostomy emptied several times today, pain meds given several times today, midline dressing to abdomen c/d/i.
[2024-04-20 20:00] VITALS: BP 134/81; PULSE 75; RESP 18; TEMP 37.1; O2SAT 95
[2024-04-20] MEDS: PANTOPRAZOLE 40MG VIAL 40 MG IV (20:37)
[2024-04-21] VITALS: BP 129/76; PULSE 83; RESP 18; TEMP 36.9; O2SAT 98
[2024-04-21] MEDS: HYDROCODONE/APAP 5/325 MG TABLET 2 TAB PO (00:46)
[2024-04-21] MEDS: KETOROLAC 30MG/ML VIAL 15 MG IV ×3 (01:11→14:48)
[2024-04-21 04:00] VITALS: BP 124/73; PULSE 78; RESP 16; TEMP 36.9; O2SAT 96; BMI 43.9
--- NOTE | 2024-04-21 05:46 | PC.NURSE ---
RESTING WELL , NO C/O PAIN SINCE MEDICATED AT [facility] FOR PAIN. SARINA REMAINS C.D.I
[2024-04-21 06:52] LABS: Basophils # 0.1 K/mm3 (0-0.2); Basophils % 0.4 % (0.1-2.0); Eosinophils # 0.3 K/mm3 (0.0-0.4); Eosinophils % 1.9 % (0.1-12.0); Hematocrit 33.5 % (37.0-47.0); Hemoglobin 10.7 g/dL (12.2-16.2); Lymphocytes # 1.7 K/mm3 (0.7-4.5); Lymphocytes % 13.2 % (10-50); Mean Corpuscular Hemoglobin 29.5 pg (27.0-31.2); Mean Corpuscular Volume 92.2 fl (81-99); Mean Platelet Volume 7.2 fl (7.4-10.4); Monocytes # 0.8 K/mm3 (0.1-1.0); Monocytes % 6.3 % (1.7-9.3); Neutrophils # 10.2 K/mm3 (1.8-7.8); Neutrophils % 78.2 % (37.0-80.0); Platelet Count 557 K/mm3 (142-424); Red Blood Count 3.63 M/mm3 (4.20-5.40); Red Cell Distribution Width 14.2 % (11.5-17.5)
[2024-04-21 06:55] LABS: Chloride 103 mmol/L (98-107)
[2024-04-21 06:56] LABS: Sodium 137 mmol/L (136-145)
[2024-04-21 06:58] LABS: Alanine Aminotransferase 25 U/L (12-78); Albumin Level 2.7 g/dl (3.5-5.0); Albumin/Globulin Ratio 0.8 (1.1-1.8); Alkaline Phosphatase 65 U/L (38-126); Anion Gap 5.9 mEq/L (5-15); Aspartate Amino Transferase 48 U/L (14-36); Bilirubin,Total 0.3 mg/dl (0.2-1.3); Blood Urea Nitrogen 3 mg/dl (7-17); Calcium 7.6 mg/dl (8.4-10.2); Carbon Dioxide 31 mmol/L (22.0-30.0); Creatinine Clearance Estimated 136 mL/min (50-200); Estimated Glomerular Filt Rate 145 ml/min (>60); GFR (African American) 175 ML/MIN (>60); Globulin 3.3 g/dL (1.3-3.2); Glucose 91 mg/dl (74-100)
--- NOTE | 2024-04-21 06:58 | EXP.SURG.PN ---
Subjective Patient reports: no new complaints and feels better Exam Data for Last 24 hours Vital signs and Labs for Last 24 Hours: Temp Pulse Resp BP Pulse Ox O2 Del Method O2 Flow Rate 98.4 F 78 16 124/73 96 Room Air 1 04/21/24 04:00 04/21/24 04:00 04/21/24 04:00 04/21/24 04:00 04/21/24 04:00 04/21/24 06:50 04/19/24 07:46 Laboratory Results - last 24 hr 04/20/24 06:01: WBC 18.9 H, RBC 3.69 L, Hgb 11.0 L, Hct 33.5 L, MCV 90.8, MCH 29.8, MCHC 32.8, RDW 14.0, Plt Count 569 H, MPV 7.1 L, Neut % (Auto) 87.3 H, Lymph % (Auto) 6.6 L, [place] % (Auto) 5.1, Eos % (Auto) 0.8, Baso % (Auto) 0.3, Neut # (Auto) 16.5 H, Lymph # (Auto) 1.2, [place] # (Auto) 1.0, Eos # (Auto) 0.2, Baso # (Auto) 0.1, Total Counted 100, Neutrophils % (Manual) 87 H, Lymphocytes % (Manual) 7 L, Monocytes % (Manual) 6, Platelet Estimate Moderate increase, RBC Morphology Normal, Sodium 135 L, Potassium 2.7 L*, Chloride 101, Carbon Dioxide 30, Anion Gap 6.7, BUN 3 L D, Creatinine 0.50 L, Estimated Creat Clear 136, Estimated GFR 145, Est GFR ( Amer) 175 D, Glucose 89, Calcium 7.4 L, Magnesium 2.0, Total Bilirubin 0.3, AST 31, ALT 17, Alkaline Phosphatase 62, Total Protein 5.7 L, Albumin 2.6 L, Globulin 3.1, Albumin/Globulin Ratio 0.8 L 04/21/24 05:58: WBC 13.0 H D, RBC 3.63 L, Hgb 10.7 L, Hct 33.5 L, MCV 92.2, MCH 29.5, MCHC 32.0, RDW 14.2, Plt Count 557 H, MPV 7.2 L, Neut % (Auto) 78.2, Lymph % (Auto) 13.2, [place] % (Auto) 6.3, Eos % (Auto) 1.9, Baso % (Auto) 0.4, Neut # (Auto) 10.2 H, Lymph # (Auto) 1.7, [place] # (Auto) 0.8, Eos # (Auto) 0.3, Baso # (Auto) 0.1 I & O for Last 24 hours: Intake & Output 04/18/24 04/19/24 04/20/24 04/21/24 11:59 11:59 11:59 11:59 Intake Total 2806 / 2806 1568 / 1568 630 / 630 840 / 840 Output Total 1760 / 1760 600 / 600 0 / 0 0 / 0 Balance 1046 / 1046 968 / 968 630 / 630 840 / 840 Weight 253 lb 254 lb 9 oz 249 lb 4.8 oz 250 lb 14.4 oz Constitutional Constitutional: no acute distress *Routine Respiratory Exam Respiratory: Absent respiratory distress *Routine Cardiovascular Exam Cardiovascular: Absent tachycardia *Routine Abdominal Exam Abdominal: Present soft Comments: No erythema. Ostomy viable. Stool and air in bag. Progress Note: A&P Assessment and plan (1) Diverticulitis: Status: Acute (2) Status post colostomy: Status: Acute Assessment and Plan Assessment and Plan for All Diagnoses:: Overall stable POD# 6 status post exploratory laparotomy with partial sigmoid resection and end colostomy creation. She remains afebrile with stable/normal vital signs. Worsening leukocytosis and hypokalemia noted on yesterday's labs. She is status post potassium placement. She has been switched to Invanz. Follow-up a.m. labs Continue to increase ambulation Likely continue to increase diet Likely discharge home soon pending ongoing evaluation of leukocytosis and hypokalemia
[2024-04-21 07:25] VITALS: BP 122/70; PULSE 78; RESP 17; TEMP 36.7; O2SAT 99
[2024-04-21 07:44] LABS: Potassium 2.9 mmoL/L (3.5-5.1)
[2024-04-21 08:00] VITALS: O2SAT 99
--- NOTE | 2024-04-21 08:20 | EXP.DC.SUM ---
General Admission date:: 04/14/24 Discharge date: 04/21/24 HPI HPI HPI: Patient is a 28-year-old female who presented to hospital due to severe abdominal pain, according to the patient her abdominal pain started yesterday evening, it has been getting worse, 10/10 intensity, generalized but more in the lower abdomen. Patient denied associated nausea vomiting or blood per rectum. Patient was noticed to have pneumoperitoneum, sigmoid diverticulitis. Hospital Course Hospital Course Hospital Course: Patient is a 28-year-old female who presented to hospital due to severe abdominal pain, according to the patient her abdominal pain started yesterday evening, it has been getting worse, 10/10 intensity, generalized but more in the lower abdomen. Patient denied associated nausea vomiting or blood per rectum. Patient was noticed to have pneumoperitoneum, sigmoid diverticulitis. Status post creation of colostomy with partial bowel resection oN 04/15. Tolerated procedure well. Gradual advancement in diet and treatment of intra-abdominal infection with antibiotics. Meeting criteria for discharge home given her clinical improvement. Will have close follow-up with surgery. Patient and mother counseled on ostomy care and appliance exchange. Problems addressed as follows: Sigmoid diverticulitis Pneumoperitoneum, extraluminal air adjacent to sigmoid colon concerning for sigmoid perforation Leukocytosis Status post colostomy -Tolerated procedure well on 04/15. Surgery assisted with care throughout admission. Patient had severely elevated white count on admission, showed gradual improvement on course of antibiotics. Initially on Zosyn, was broadened Invanz 2 days prior to discharge due to a slight bump in white count. Given continued clinical stability however, will complete 7-day antibiotic course with 2 days of amoxicillin. Pain showed gradual improvement. Able to wean off [employer] pump. Discharged home with short course of hydrocodone. Gradually advanced her diet and is tolerating regular diet at this time. Having adequate output. Will need to follow-up with surgery in the next 1 to 2 weeks to monitor wound and reevaluate ostomy. Would benefit from repeat labs at that time including CBC and CMP. Counseled patient on her ostomy likely being short-term as her abdomen heals from her perforated diverticulitis. Further discussion about reversal of ostomy deferred to general surgery. Of note, patient had bowel movement per rectum stable for discharge, counseled that there may still be some residual stool in this might happen another time or 2 before her rectum is completely empty. Patient expressed understanding. Hypokalemia: Potassium 2.7. Will place IV and oral today. Repeat level ordered for the morning. Continue regimen for 4E including budesonide/motor all twice daily and albuterol rescue inhaler Continue home regimen for lupus/RA including hydroxychloroquine Leflunomide daily for mood Continue allergy regimen with levocetirizine day and Flonase nasal spray. Patient educated by nursing on care of her ostomy and appliance exchange. Having good output. Tolerating p.o. intake. Pain improving. Stable to discharge home. Total time spent on discharge 32 minutes in counseling, documentation, chart review, and direct care with patient. Exam Data for Last 24 hours Vital signs and Labs for Last 24 Hours: Temp Pulse Resp BP Pulse Ox O2 Del Method O2 Flow Rate 98.1 F 78 17 122/70 99 Room Air 1 04/21/24 07:25 04/21/24 07:25 04/21/24 07:25 04/21/24 07:25 04/21/24 07:25 04/21/24 07:25 04/19/24 07:46 Laboratory Results - last 24 hr 04/20/24 06:01: Total Counted 100, Neutrophils % (Manual) 87 H, Lymphocytes % (Manual) 7 L, Monocytes % (Manual) 6, Platelet Estimate Moderate increase, RBC Morphology Normal, Sodium 135 L, Potassium 2.7 L*, Chloride 101, Carbon Dioxide 30, Anion Gap 6.7, BUN 3 L D, Creatinine 0.50 L, Estimated Creat Clear 136, Estimated GFR 145, Est GFR ( Amer) 175 D, Glucose 89, Calcium 7.4 L, Magnesium 2.0, Total Bilirubin 0.3, AST 31, ALT 17, Alkaline Phosphatase 62, Total Protein 5.7 L, Albumin 2.6 L, Globulin 3.1, Albumin/Globulin Ratio 0.8 L 04/21/24 05:58: WBC 13.0 H D, RBC 3.63 L, Hgb 10.7 L, Hct 33.5 L, MCV 92.2, MCH 29.5, MCHC 32.0, RDW 14.2, Plt Count 557 H, MPV 7.2 L, Neut % (Auto) 78.2, Lymph % (Auto) 13.2, [place] % (Auto) 6.3, Eos % (Auto) 1.9, Baso % (Auto) 0.4, Neut # (Auto) 10.2 H, Lymph # (Auto) 1.7, [place] # (Auto) 0.8, Eos # (Auto) 0.3, Baso # (Auto) 0.1, Sodium 137, Potassium 2.9 L*, Chloride 103, Carbon Dioxide 31 H, Anion Gap 5.9, BUN 3 L, Creatinine 0.50 L, Estimated Creat Clear 136, Estimated GFR 145, Est GFR ( Amer) 175, Glucose 91, Calcium 7.6 L, Total Bilirubin 0.3, AST 48 H D, ALT 25 D, Alkaline Phosphatase 65, Total Protein 6.0 L, Albumin 2.7 L, Globulin 3.3 H, Albumin/Globulin Ratio 0.8 L I & O for Last 24 hours: Intake & Output 04/18/24 04/19/24 04/20/24 04/21/24 23:59 23:59 23:59 23:59 Intake Total 2579 / 2729 1280 / 1280 600 / 840 240 / 240 Output Total 910 / 910 200 / 200 0 / 0 0 / 0 Balance 1669 / 1819 1080 / 1080 600 / 840 240 / 240 Weight 114.759 kg 115.4 kg 113.081 kg 113.806 kg Constitutional Constitutional: no acute distress, morbidly obese and cooperative *Routine HEENT Exam Head: Present normocephalic Eye: Present EOMI and PERRL ENT: Present mucous membranes moist *Routine Neck Exam Neck: Present supple; Absent lymphadenopathy *Routine Respiratory Exam Respiratory: Present CTA bilaterally; Absent rhonchi, wheezes or crackles *Routine Cardiovascular Exam Cardiovascular: Present RRR *Routine Abdominal Exam Abdominal: Present soft, normoactive bowel sounds, tenderness (Over right surgical site.) and ostomy Comments: Ostomy in left abdomen, pink and healthy, appears to be retracted, having brown stool output *Routine Rectal Exam Patient deferred: visual exam *Routine Exam Patient deferred: external exam *Routine Extremities Exam Extremities: Absent cyanosis, clubbing or edema *Routine Skin Exam Skin: Present warm; Absent rash *Routine Neurological Exam Neurological: Present alert, oriented X3 and moving all extremities; Absent altered mental status Routine Psychiatric Exam Psychiatric: Present anxious Results Data Completed and Pending Labs on day of discharge: Labs from last 24 hours 04/21/24 04/20/24 05:58 06:01 WBC 13.0 H D RBC 3.63 L Hgb 10.7 L Hct 33.5 L MCV 92.2 MCH 29.5 MCHC 32.0 RDW 14.2 Plt Count 557 H MPV 7.2 L Neut % (Auto) 78.2 Lymph % (Auto) 13.2 [place] % (Auto) 6.3 Eos % (Auto) 1.9 Baso % (Auto) 0.4 Neut # (Auto) 10.2 H Lymph # (Auto) 1.7 [place] # (Auto) 0.8 Eos # (Auto) 0.3 Baso # (Auto) 0.1 Total Counted 100 Neutrophils % (Manual) 87 H Lymphocytes % (Manual) 7 L Monocytes % (Manual) 6 Platelet Estimate Moderate increase RBC Morphology Normal Sodium 137 135 L Potassium 2.9 L* 2.7 L* Chloride 103 101 Carbon Dioxide 31 H 30 Anion Gap 5.9 6.7 BUN 3 L 3 L D Creatinine 0.50 L 0.50 L Estimated Creat Clear 136 136 Estimated GFR 145 145 Est GFR ( Amer) 175 175 D Glucose 91 89 Calcium 7.6 L 7.4 L Magnesium 2.0 Total Bilirubin 0.3 0.3 AST 48 H D 31 ALT 25 D 17 Alkaline Phosphatase 65 62 Total Protein 6.0 L 5.7 L Albumin 2.7 L 2.6 L Globulin 3.3 H 3.1 Albumin/Globulin Ratio 0.8 L 0.8 L Preliminary micro results at discharge 04/17/24 14:03 Blood Culture - Preliminary Blood NO GROWTH AFTER 48 HOURS 04/17/24 12:53 Blood Culture - Preliminary Blood NO GROWTH AFTER 48 HOURS DS: Diagnosis Discharge Diagnosis (1) Diverticulitis: Status: Acute Code(s): K57.92 - Diverticulitis of intestine, part unspecified, without perforation or abscess without bleeding (2) Status post colostomy: Status: Acute Code(s): Z93.3 - Colostomy status Meds Home Medications and Allergies Home Medications Medication Instructions Recorded Confirmed Type cyanocobalamin (vitamin B-12) 1,000 mcg PO DAILY 04/24/23 04/14/24 History 1,000 mcg capsule etonogestrel 68 mg subdermal 68 mg subdermal DIRECTED 04/24/23 04/14/24 History implant (Nexplanon) hydroxychloroquine 200 mg tablet 200 mg PO DIRECTED 04/24/23 04/14/24 History zinc acetate 50 mg (zinc) capsule 50 mg PO DAILY 04/24/23 04/14/24 History ibuprofen 600 mg tablet 600 mg PO TID PRN pain 30 days #90 11/11/23 04/14/24 Rx tabs budesonide-formoterol HFA 80 1 inh inhalation BID #10.2 grams 11/27/23 04/14/24 Rx mcg-4.5 mcg/actuation aerosol inhaler (Symbicort) fluticasone propionate 50 1 spray intranasal DAILY #16 grams 11/27/23 04/14/24 Rx mcg/actuation nasal spray,suspension (Allergy Relief (fluticasone)) leflunomide 10 mg tablet 10 mg PO DAILY 11/27/23 04/14/24 History levocetirizine 5 mg tablet (Xyzal) 5 mg PO DAILY #30 tabs 11/27/23 04/14/24 Rx cholecalciferol (vitamin D3) 125 125 mcg PO DAILY #30 caps 11/28/23 04/14/24 Rx mcg (5,000 unit) capsule albuterol sulfate 90 mcg/actuation 2 puff inhalation Q6HP PRN 04/14/24 04/14/24 History aerosol inhaler shortness of breath or wheezing amoxicillin 500 mg-potassium 1 tab PO TID 2 days #6 tabs 04/21/24 Rx clavulanate 125 mg tablet (Augmentin) hydrocodone 5 mg-acetaminophen 325 1 tab PO Q4HP PRN Moderate Pain 04/21/24 Rx mg tablet (4-6) 3 days #18 tabs potassium chloride 20 mEq 20 meq PO TID 3 days #9 tabs 04/21/24 Rx tablet,extended release(part/cryst) (Klor-Con M) New Prescriptions to Start Prescriptions: amoxicillin-pot clavulanate [Augmentin] Parviz Saravia hydrocodone-acetaminophen Parviz Saravia potassium chloride [Klor-Con M20] Parviz Saravia Allergies Allergy/AdvReac Type Severity Reaction Status Date / Time shellfish derived Allergy Verified 04/15/24 19:08 Discharge Plan Disposition Patient Disposition: Home, Self-Care Condition: Fair Discharge Order Discharge Orders: Discharge Order (Routine); Ordered 04/21/24 Ordered By: Parviz Saravia Follow up Plan Follow up with: Javy Linton MD [Primary Care Provider] - 04/28/24 1:00 pm Rod Nieves MD [Staff Physician] - 04/28/24 10:30 am Prescriptions/Medication Reconciliation: New potassium chloride [Klor-Con M20] 20 mEq Tablet,Er Particles/Crystals 20 meq PO TID 3 Days Qty: 9 0RF amoxicillin-pot clavulanate [Augmentin] 500-125 mg tablet 1 tab PO TID 2 Days Qty: 6 0RF hydrocodone-acetaminophen 5-325 mg Tablet 1 tab PO Q4HP PRN (Reason: Moderate Pain (4-6)) 3 Days Qty: 18 0RF Continued cyanocobalamin (vitamin B-12) 1,000 mcg capsule 1,000 mcg PO DAILY zinc acetate 50 mg (zinc) capsule 50 mg PO DAILY Nexplanon 68 mg implant 68 mg subdermal DIRECTED leflunomide 10 mg tablet 10 mg PO DAILY Patient Comments: TAKE 1 TABLET 1 TIME EACH DAY fluticasone propionate [Allergy Relief (fluticasone)] 50 mcg/actuation spray,suspension 1 spray intranasal DAILY Qty: 16 2RF Rx Instructions: administer into each nostril levocetirizine [Xyzal] 5 mg tablet 5 mg PO DAILY Qty: 30 2RF budesonide-formoterol [Symbicort] 80-4.5 mcg/actuation HFA aerosol inhaler 1 inh inhalation BID Qty: 10.2 2RF hydroxychloroquine 200 mg tablet 200 mg PO DIRECTED Patient Comments: TAKE 2 TABS DAILY ON FRIDAY THROUGH FRIDAY,3 TABS DAILY ON FRIDAY AND FRIDAY WITH FOOD OR MILK Rx Instructions: TAKE 2 TABS DAILY ON FRIDAY THROUGH FRIDAY,3 TABS DAILY ON FRIDAY AND FRIDAY WITH FOOD OR MILK ibuprofen 600 mg tablet 600 mg PO TID PRN (Reason: pain) 30 Days Qty: 90 2RF cholecalciferol (vitamin D3) 125 mcg (5,000 unit) capsule 125 mcg PO DAILY Qty: 30 4RF albuterol sulfate 90 mcg/actuation HFA aerosol inhaler 2 puff inhalation Q6HP PRN (Reason: shortness of breath or wheezing) Discontinued metronidazole [Flagyl] 500 mg Tablet 500 mg PO Q8H levofloxacin [Levaquin] 750 mg Tablet 750 mg PO DAILY Problem Reconciliation Problems Reviewed?: Yes Patient Discharge Instructions ACTIVITY: Continue current activity DIET: continue same diet Patient Instructions: DI for Exploratory Laparotomy, DI for Diverticulitis, DI for Surgical Site Infection Providers Primary Care Provider: Javy Linton Admit Provider: Chika Vieyra Attending Provider: Chika Vieyra
[2024-04-21] MEDS: ERTAPENEM SODIUM 1 GM in 0.9 % SODIUM CHLORIDE 50 ML IV (09:36)
[2024-04-21] MEDS: POTASSIUM CHLORIDE 20MEQ TAB 20 MEQ PO ×2 (09:37→12:59)
[2024-04-21] MEDS: ENOXAPARIN 40MG/0.4ML SYRINGE 40 MG SQ (09:46)
[2024-04-21] MEDS: KCl 10mEq/100ml 100 ML 100 MEQ IV ×3 (10:29→13:45)
[2024-04-21 12:00] VITALS: BP 136/81; PULSE 93; RESP 16; TEMP 36.7; O2SAT 98
[2024-04-21] MEDS: POTASSIUM CHLORIDE IV (13:47)
[2024-04-21] MEDS: LIDOCAINE HCL IV (13:47)
[2024-04-21] MEDS: SODIUM CHLORIDE 0.9% IV (13:47)
[2024-04-21 15:37] VITALS: BP 148/75; PULSE 102; RESP 15; TEMP 36.9; O2SAT 98
--- NOTE | 2024-04-22 16:03 | CARE MANAGER ---
Contacted patient related to hospital discharge. She has phone number for Lena. She is aware of follow up appointments and has new medications. Denies questions or concerns other than if she can shower, which advised she can per Dr. Saravia. MINE Lam
== END 2024-04-21 15:36 | disposition home or self-care (01) | DRG 330 ==
LOC: ER 09:38 → 2ND 10:03
PROVIDERS: Internal Medicine Adolescent Medicine; Nurse Practitioner Acute Care; Surgery; Admitting Provider Internal Medicine; Emergency Provider Student in an Organized Health Care Education/Training Program; PCP Family Medicine; Visit Provider Internal Medicine
PROC: 0DBN0ZZ Excision of Sigmoid Colon, Open Approach (ICD-10-PCS; CPT 49000; principal; 2024-04-15 11:30)
DX: K57.20 Diverticulitis of large intestine with perforation and abscess without bleeding (principal); Z68.42 Body mass index [BMI] 45.0-49.9, adult; M32.9 Systemic lupus erythematosus, unspecified; M06.9 Rheumatoid arthritis, unspecified; K66.8 Other specified disorders of peritoneum; J44.9 Chronic obstructive pulmonary disease, unspecified; E66.9 Obesity, unspecified; E87.6 Hypokalemia
CPT/HCPCS: 44140; 36415; 71046; 74177; 80048; 80053; 81001; 83605; 83690; 83735; 84703; 85007; 85025; 87040; 88307; 99291; J3490; J1170; J1335; J1650; J1885; J2175; J2250; J2270; J2405; J2543; J3010; J3480; J7120; Q9967

== ENCOUNTER 2024-05-03 16:52 | Outpatient (CLI) | payer MEDICAID, SELFPAY ==
[2024-05-03 17:17] LABS: Anion Gap 15.7 mEq/L (5-15); Blood Urea Nitrogen 17 mg/dl (7-17); Calcium 9.3 mg/dl (8.4-10.2); Carbon Dioxide 26 mmol/L (22.0-30.0); Chloride 101 mmol/L (98-107); Estimated Glomerular Filt Rate 117 ml/min (>60); GFR (African American) 142 ML/MIN (>60); Glucose 106 mg/dl (74-100); Potassium 4.7 mmoL/L (3.5-5.1); Sodium 138 mmol/L (136-145)
== END 2024-05-03 23:59 | disposition home or self-care (01) ==
LOC: LAB.DROPOF 16:52
PROVIDERS: PCP Nurse Practitioner Family; Visit Provider Nurse Practitioner Family
DX: E87.6 Hypokalemia (principal)
CPT/HCPCS: 80048

== ENCOUNTER 2024-07-29 20:52 | Emergency (ER) | payer MEDICAID, SELFPAY ==
[2024-07-29 20:53] VITALS: BP 129/83; PULSE 89; RESP 18; TEMP 37.1; O2SAT 99; BMI 38.9
[2024-07-29 21:00] VITALS: BP 127/68; PULSE 84; O2SAT 99
--- NOTE | 2024-07-29 21:07 | CT_ITS ---
PROCEDURE INFORMATION: Exam: CT Abdomen And Pelvis With Contrast Exam date and time: 07/29/2024 9:53 PM Age: 28 years old Clinical indication: Abdominal pain; Generalized; Prior surgery; Surgery date: 6+ months; Surgery type: Colostomy; Additional info: Abd pain, HX colectomy/ostomy, nausea TECHNIQUE: Imaging protocol: Computed tomography of the abdomen and pelvis with contrast. Radiation optimization: All CT scans at this facility use at least one of these dose optimization techniques: automated exposure control; mA and/or kV adjustment per patient size (includes targeted exams where dose is matched to clinical indication); or iterative reconstruction. Contrast material: ISOVUE; Contrast volume: 75 ml; Contrast route: IV; COMPARISON: CT ABDOMEN PELVIS W CON 04/14/2024 8:41 AM FINDINGS: Liver: Unremarkable. Gallbladder and biliary ducts: Unremarkable. Pancreas: Unremarkable. Spleen: Unremarkable. Adrenal glands: Unremarkable. Kidneys and ureters: Unremarkable. Stomach and bowel: Status post subtotal colectomy and creation of left lower quadrant colostomy since most recent available prior exam performed on 04/14/2024, with a moderate-sized parastomal hernia containing multiple loops of small bowel. No evidence of obstruction, incarceration or strangulation of the herniated bowel loops. Appendix: Appendix is visualized and is normal. Intraperitoneal space: No free fluid. No pneumoperitoneum. Vasculature: Unremarkable. Lymph nodes: Unremarkable. Urinary bladder: Unremarkable. Reproductive: Cystic lesion in the left adnexa measuring 6.0 cm in maximum dimension, new since prior exam. CT appearance of reproductive organs is otherwise unremarkable as visualized. Bones/joints: No evidence of acute osseous abnormality. Soft tissues: See Stomach and bowel finding. IMPRESSION: 1. No evidence of acute intra-abdominal pathology. 2. Moderate-sized parastomal hernia containing multiple small bowel loops without evidence of obstruction, incarceration or strangulation. 3. Cystic lesion in the left adnexa measuring 6.0 cm in maximum dimension, new since prior exam. Pelvic ultrasound could better evaluate if there is clinical concern for acute pathology in the left ovary. Otherwise, please see comments below for current guidelines. COMMENTS: Ultrasound follow-up in 6-12 months is recommended for ovarian cysts greater than 5 cm in size in premenopausal patients, or sooner if clinically indicated. (Reference: Antonio) REFERENCES: Antonio et al. Management of Incidental Adnexal Findings on CT and MRI: A White Paper of the ACR Incidental Findings Committee, J Am Jemma Radiol. 2019;17(2):248-254.
--- NOTE | 2024-07-29 21:09 | HMH.EDGENADL ---
Discharge Plan Disposition Patient Disposition: Home, Self-Care Condition: Good Prescriptions Prescriptions: No Action Nexplanon 68 mg implant 68 mg subdermal DIRECTED magnesium 250 mg tablet 250 mg PO DAILY Qty: 30 0RF diclofenac sodium 50 mg tablet,delayed release (DR/EC) 50 mg PO BID PRN (Reason: pain) Qty: 60 2RF albuterol sulfate 90 mcg/actuation HFA aerosol inhaler 2 puff inhalation Q6HP PRN (Reason: shortness of breath or wheezing) 30 Days Qty: 6.7 2RF budesonide-formoterol [Symbicort] 80-4.5 mcg/actuation HFA aerosol inhaler 1 inh inhalation BID Qty: 10.2 2RF Referrals Follow up/Referrals: Javy Linton MD [Primary Care Provider] - See instructions Activity Restrictions/Add. Instructions Additional Instructions/Restrictions: Please follow-up with your general surgeon. Please return to the emergency department if you develop any new or worsening symptoms or become concerned for your health. Clinical Impressions Clinical Impression: Abdominal pain, Parastomal hernia Ovarian cyst Qualifiers: Laterality: left Qualified Code(s): N83.202 - Unspecified ovarian cyst, left side Instructions Patient Instructions: DI for Acute Abdominal Pain Print Language Print Language: Tongan Discharge ED Provider: Joss Lorenzo General Adult HPI <KATLYN Vega - Last Filed: 07/29/24 23:00> General Chief complaint: Abdominal Pain Stated complaint: Stomach pain Time Seen by Provider: 07/29/24 20:55 Mode of Arrival: Ambulatory Source of Information: Patient and Relative Limitations: No Limitations History of Present Illness HPI narrative: 28-year-old female presents to the emergency department with abdominal pain that started around 6 PM today, it is diffuse, radiates some to the back, she admits to nausea, denies vomiting, denies fever chills, chest pain, shortness of breath, denies any urinary type symptomatology, vaginal type symptomatology, denies any constipation/diarrhea, patient does have ostomy in place in the left quadrant of the abdomen, she is status post colectomy/ostomy back in March 2024 for what sounds active perforated diverticulitis, when asked about her ostomy output, she has had normal output, as well as volume, no evidence of any infection around her ostomy site. Patient states last p.o. intake was approximately 6 PM, and that her pain started shortly after. Patient endorses creased physical activity yesterday, which is not normal for her, he is a current everyday smoker, admits to occasional alcohol use approximately 4-8 beers weekly, last drink was yesterday, denies any drug use, other past medical history consistent with COPD, obesity, rheumatoid arthritis, lupus. Initial triage vitals grossly unremarkable. Onset (ago): hour(s) Related Data Home Medications ?Medication ?Instructions ?Recorded ?Confirmed etonogestrel 68 mg subdermal 68 mg subdermal DIRECTED 04/24/23 07/15/24 implant (Nexplanon) Previous Rx's ?Medication ?Instructions ?Recorded diclofenac sodium 50 mg 50 mg PO BID PRN pain #60 tabs 05/05/24 tablet,delayed release magnesium 250 mg tablet 250 mg PO DAILY #30 tabs 05/05/24 albuterol sulfate 90 mcg/actuation 2 puff inhalation Q6HP PRN 05/07/24 aerosol inhaler shortness of breath or wheezing 30 days #6.7 grams budesonide-formoterol HFA 80 1 inh inhalation BID #10.2 grams 05/07/24 mcg-4.5 mcg/actuation aerosol inhaler (Symbicort) Allergies Allergy/AdvReac Type Severity Reaction Status Date / Time shellfish derived Allergy Verified 07/15/24 09:50 [facility] <KATLYN Vega - Last Filed: 07/29/24 23:00> [facility] Disclaimer: The information contained in this section may have been updated after the patient was seen, as this information can be updated by other users. Medical History Lupus Rheumatoid arthritis Surgical History History of colectomy History of oral surgery Family History Mother Tumor Father Diabetes Grandfather Diabetes Social History Smoking Status: Current every day smoker tobacco type: cigarettes second hand exposure: Yes alcohol intake: current alcohol intake frequency: holidays/special occasions only substance use type: denies use current occupational status: employed Travel in the last 8 weeks: None household members: family housing: house marital status: <KATLYN Vega - Last Filed: 07/29/24 23:00> ROS Obtained: Yes All systems reviewed & no additional complaints except as documented Physical Exam <KATLYN Vega - Last Filed: 07/29/24 23:00> General General appearance: alert and in no apparent distress Head Head exam: atraumatic and normocephalic Eye Eye exam: Present PERRL and EOMI ENT ENT exam: Present mucous membranes moist Neck Neck exam: Present normal inspection Chest Chest inspection: Present normal inspection and symmetric chest wall rise Respiratory Respiratory exam: Present normal lung sounds bilaterally; Absent respiratory distress Cardiovascular Cardiovascular exam: Present regular rate and normal rhythm Abdominal Exam Abdominal exam: Present soft, tenderness, scar and other; Absent distention, guarding, rebound or rigidity Abdominal tenderness: Present diffuse and mild Comment: There is mild diffuse abdominal tenderness to palpation, no guarding, no rebound, no rigidity, ostomy is in place, looks and appears to have normal output, no erythema, no drainage, around the incision site, there is a large ventral incision noted. Extremities Exam Extremities exam: Present normal inspection Back Exam Back exam: Present CVA tenderness (R), CVA tenderness (L) and other (Minimal to mild bilateral CVA tenderness) Neurological Exam Neurological exam: Present alert and oriented X3 Psychiatric Psychiatric exam: Present normal affect Skin Skin exam: Present warm and dry Medical Decision Making <KATLYN Vega - Last Filed: 07/29/24 23:00> Medical Records Medical records reviewed: Yes I reviewed the patient's medical records. Screening: Per USPSTF and CDC recommendations, given the prevalence of disease in our region, it is our hospital?s policy to screen for HIV and viral Hepatitis for all patients aged 18 and over and those with ongoing risk factors. [place] Inquiry Pt receiving controlled substance: No Vital Signs: 07/29/24 20:53 07/29/24 21:00 07/29/24 23:13 Temperature 98.7 F 98.6 F Temperature Source Oral Oral Pulse Rate 84 74 Pulse Rate [Right Brachial] 89 Respiratory Rate 18 18 Blood Pressure 127/68 130/74 Blood Pressure [Right Arm] 129/83 Blood Pressure Mean [Right Arm] 98 Blood Pressure Source Automatic Cuff Blood Pressure Source [Right Arm] Automatic Cuff Blood Pressure Position Supine Blood Pressure Position [Right Arm] Supine 02 Sat by Pulse Oximetry 99 99 Oxygen Delivery Method Room Air Room Air Lab Data Lab results reviewed: Yes I reviewed the patient's lab results. Lab Results 07/29/24 21:11: WBC 7.2, RBC 4.95, Hgb 15.0, Hct 45.1, MCV 91.0, MCH 30.3, MCHC 33.3, RDW 15.1, Plt Count 420, MPV 8.3, Neut % (Auto) 54.3, Lymph % (Auto) 28.8, Tyrrell % (Auto) 11.1 H, Eos % (Auto) 4.1, Baso % (Auto) 1.7, Neut # (Auto) 3.9, Lymph # (Auto) 2.1, Tyrrell # (Auto) 0.8, Eos # (Auto) 0.3, Baso # (Auto) 0.1, Sodium 136, Potassium 4.2, Chloride 106, Carbon Dioxide 27, Anion Gap 7.2, BUN 17, Creatinine 0.70, Estimated Creat Clear 185, Estimated GFR 98, Est GFR ( Amer) 119, Glucose 77, Calcium 8.9, Magnesium 2.0, Total Bilirubin 0.5, AST 42 H, ALT 42, Alkaline Phosphatase 48, Total Protein 8.3 H D, Albumin 4.6, Globulin 3.7 H, Albumin/Globulin Ratio 1.2, Lipase 99, Serum HCG, Qual Negative, HIV 1&2 Antibody Rapid Nonreactive 07/29/24 21:14: Lactate 0.7 07/29/24 21:26: Urine Color Yellow, Urine Appearance Clear, Urine pH 6.0, Ur Specific [place] >= 1.030, Urine Protein Negative, Urine Glucose (UA) Negative, Urine Ketones Negative, Urine Blood Negative, Urine Nitrate Negative, Urine Bilirubin Negative, Urine Urobilinogen 0.2, Ur Leukocyte Esterase Negative, Urine WBC 3-5, Ur Squamous Epith Cells 10-20, Urine Bacteria 2+, Urine Mucus 1+ 07/29/24 21:11 07/29/24 21:11 Orders (Tests/Meds): ED MEDICATIONS Discontinued Medications Generic Name Dose Route Start Last Admin Trade Name Freq PRN Reason Stop Dose Admin Iopamidol 75 ml 07/29/24 21:52 07/29/24 21:53 Iopamidol-370 (76%);100ml Bottle IV 07/29/24 21:53 75 ml ONCE ONE Administration Ketorolac Tromethamine 15 mg 07/29/24 22:46 07/29/24 22:51 Ketorolac 30mg/Ml Vial IV 07/29/24 22:47 15 mg ONCE ONE Administration Ondansetron HCl 4 mg 07/29/24 21:08 07/29/24 21:16 Ondansetron 4mg/2ml Vial IV 07/29/24 21:09 4 mg ONCE ONE Administration Sodium Chloride 10 ml 07/29/24 21:52 07/29/24 21:53 Sodium Chloride 0.9% 10ml Syr (Rad Only) IV 07/29/24 21:53 10 ml ONCE ONE Administration ORDERS Category Date Time Status CT abdomen pelvis w con Stat Cat Scan 07/29/24 21:07 Completed CXR --portable [XR chest portable] Stat Exams 07/29/24 21:24 Completed Complete Blood Count Auto Diff Stat Lab 07/29/24 21:11 Completed Comprehensive Metabolic Panel Stat Lab 07/29/24 21:11 Completed HCG Qualitative, Serum Stat Lab 07/29/24 21:11 Completed HIV (1&2) Antibody Rapid Stat Lab 07/29/24 21:11 Completed Hep C Ab with Reflex to RNA Stat Lab 07/29/24 21:11 Received Lactic Acid Stat Lab 07/29/24 21:14 Completed Lipase Stat Lab 07/29/24 21:11 Completed Magnesium Stat Lab 07/29/24 21:11 Completed Urinalysis and Microscopic Stat Lab 07/29/24 21:26 Completed Urine Culture Stat Micro 07/29/24 21:26 Received Medical Decision Narrative: 28-year-old female presents emergency department with abdominal pain and nausea, differential diagnose include but not limited to, small bowel obstruction, ventral hernia, gastroenteritis, appendicitis, pancreatitis, colitis, diverticulitis, ileitis, ileus, pseudo colonic obstruction I discussed patient case with the attending physician Dr. Sequeira Obtain CBC CMP, hCG serum qualitative, CXR, lactic acid level, lipase, nasal, urinalysis, and CT abdomen pelvis with and without contrast for further evaluation as characterization, will give 4 mg IV Zofran for nausea. CBC is unremarkable Beta-hCG is negative CMP is notable for mildly elevated AST at 42 otherwise unremarkable, urinalysis grossly unremarkable, there are negative nitrites, negative leuk esterase. Patient complaining of some pain, will give 15 mg IV Toradol for pain. Patient typically takes ibuprofen at home for her abdominal pain, has not taken any today Hide discussed this is patient's case with with the attending physician Dr. Lorenzo at shift change, he will be assuming remainder the patient's care/workup, disposition will be most likely home, pending CT abdomen pelvis and chest x-ray radiology read. <Joss Lorenzo MD - Last Filed: 07/29/24 23:22> Vital Signs: 07/29/24 20:53 07/29/24 21:00 07/29/24 23:13 Temperature 98.7 F 98.6 F Temperature Source Oral Oral Pulse Rate 84 74 Pulse Rate [Right Brachial] 89 Respiratory Rate 18 18 Blood Pressure 127/68 130/74 Blood Pressure [Right Arm] 129/83 Blood Pressure Mean [Right Arm] 98 Blood Pressure Source Automatic Cuff Blood Pressure Source [Right Arm] Automatic Cuff Blood Pressure Position Supine Blood Pressure Position [Right Arm] Supine 02 Sat by Pulse Oximetry 99 99 Oxygen Delivery Method Room Air Room Air Lab Data Lab Results 07/29/24 21:11: WBC 7.2, RBC 4.95, Hgb 15.0, Hct 45.1, MCV 91.0, MCH 30.3, MCHC 33.3, RDW 15.1, Plt Count 420, MPV 8.3, Neut % (Auto) 54.3, Lymph % (Auto) 28.8, Tyrrell % (Auto) 11.1 H, Eos % (Auto) 4.1, Baso % (Auto) 1.7, Neut # (Auto) 3.9, Lymph # (Auto) 2.1, Tyrrell # (Auto) 0.8, Eos # (Auto) 0.3, Baso # (Auto) 0.1, Sodium 136, Potassium 4.2, Chloride 106, Carbon Dioxide 27, Anion Gap 7.2, BUN 17, Creatinine 0.70, Estimated Creat Clear 185, Estimated GFR 98, Est GFR ( Amer) 119, Glucose 77, Calcium 8.9, Magnesium 2.0, Total Bilirubin 0.5, AST 42 H, ALT 42, Alkaline Phosphatase 48, Total Protein 8.3 H D, Albumin 4.6, Globulin 3.7 H, Albumin/Globulin Ratio 1.2, Lipase 99, Serum HCG, Qual Negative, HIV 1&2 Antibody Rapid Nonreactive 07/29/24 21:14: Lactate 0.7 07/29/24 21:26: Urine Color Yellow, Urine Appearance Clear, Urine pH 6.0, Ur Specific [place] >= 1.030, Urine Protein Negative, Urine Glucose (UA) Negative, Urine Ketones Negative, Urine Blood Negative, Urine Nitrate Negative, Urine Bilirubin Negative, Urine Urobilinogen 0.2, Ur Leukocyte Esterase Negative, Urine WBC 3-5, Ur Squamous Epith Cells 10-20, Urine Bacteria 2+, Urine Mucus 1+ Orders (Tests/Meds): ED MEDICATIONS Discontinued Medications Generic Name Dose Route Start Last Admin Trade Name Rodolfoq PRN Reason Stop Dose Admin Iopamidol 75 ml 07/29/24 21:52 07/29/24 21:53 Iopamidol-370 (76%);100ml Bottle IV 07/29/24 21:53 75 ml ONCE ONE Administration Ketorolac Tromethamine 15 mg 07/29/24 22:46 07/29/24 22:51 Ketorolac 30mg/Ml Vial IV 07/29/24 22:47 15 mg ONCE ONE Administration Ondansetron HCl 4 mg 07/29/24 21:08 07/29/24 21:16 Ondansetron 4mg/2ml Vial IV 07/29/24 21:09 4 mg ONCE ONE Administration Sodium Chloride 10 ml 07/29/24 21:52 07/29/24 21:53 Sodium Chloride 0.9% 10ml Syr (Rad Only) IV 07/29/24 21:53 10 ml ONCE ONE Administration ORDERS Category Date Time Status CT abdomen pelvis w con Stat Cat Scan 07/29/24 21:07 Completed CXR --portable [XR chest portable] Stat Exams 07/29/24 21:24 Completed Complete Blood Count Auto Diff Stat Lab 07/29/24 21:11 Completed Comprehensive Metabolic Panel Stat Lab 07/29/24 21:11 Completed HCG Qualitative, Serum Stat Lab 07/29/24 21:11 Completed HIV (1&2) Antibody Rapid Stat Lab 07/29/24 21:11 Completed Hep C Ab with Reflex to RNA Stat Lab 07/29/24 21:11 Received Lactic Acid Stat Lab 07/29/24 21:14 Completed Lipase Stat Lab 07/29/24 21:11 Completed Magnesium Stat Lab 07/29/24 21:11 Completed Urinalysis and Microscopic Stat Lab 07/29/24 21:26 Completed Urine Culture Stat Micro 07/29/24 21:26 Received Medical Decision Narrative: 28-year-old female presents emergency department with abdominal pain and nausea, differential diagnose include but not limited to, small bowel obstruction, ventral hernia, gastroenteritis, appendicitis, pancreatitis, colitis, diverticulitis, ileitis, ileus, pseudo colonic obstruction I discussed patient case with the attending physician Dr. Sequeira Obtain CBC CMP, hCG serum qualitative, CXR, lactic acid level, lipase, nasal, urinalysis, and CT abdomen pelvis with and without contrast for further evaluation as characterization, will give 4 mg IV Zofran for nausea. CBC is unremarkable Beta-hCG is negative CMP is notable for mildly elevated AST at 42 otherwise unremarkable, urinalysis grossly unremarkable, there are negative nitrites, negative leuk esterase. Patient complaining of some pain, will give 15 mg IV Toradol for pain. Patient typically takes ibuprofen at home for her abdominal pain, has not taken any today Hide discussed this is patient's case with with the attending physician Dr. Lorenzo at shift change, he will be assuming remainder the patient's care/workup, disposition will be most likely home, pending CT abdomen pelvis and chest x-ray radiology read. Bj ROMERO: I assumed care of the patient at the time of handoff from the prior provider. On reassessment patient remains medically stable and reports symptomatic improvement. CT imaging was independently interpreted by me and shows a large parastomal hernia with no evidence of obstruction. Also shows a large left-sided ovarian cyst. I communicated these findings with patient and encouraged she follow-up with her general surgeon. She is given return precautions for evidence of obstruction. She was also instructed to follow-up for repeat imaging of her ovarian cyst in the next 6 to 12 months. She was discharged in stable condition. <Arjun Sequeira MD - Last Filed: 07/31/24 07:26> Vital Signs: 07/29/24 20:53 07/29/24 21:00 07/29/24 23:13 Temperature 98.7 F 98.6 F Temperature Source Oral Oral Pulse Rate 84 74 Pulse Rate [Right Brachial] 89 Respiratory Rate 18 18 Blood Pressure 127/68 130/74 Blood Pressure [Right Arm] 129/83 Blood Pressure Mean [Right Arm] 98 Blood Pressure Source Automatic Cuff Blood Pressure Source [Right Arm] Automatic Cuff Blood Pressure Position Supine Blood Pressure Position [Right Arm] Supine 02 Sat by Pulse Oximetry 99 99 Oxygen Delivery Method Room Air Room Air Lab Data Lab Results 07/29/24 21:11: WBC 7.2, RBC 4.95, Hgb 15.0, Hct 45.1, MCV 91.0, MCH 30.3, MCHC 33.3, RDW 15.1, Plt Count 420, MPV 8.3, Neut % (Auto) 54.3, Lymph % (Auto) 28.8, [place]rell % (Auto) 11.1 H, Eos % (Auto) 4.1, Baso % (Auto) 1.7, Neut # (Auto) 3.9, Lymph # (Auto) 2.1, [place] # (Auto) 0.8, Eos # (Auto) 0.3, Baso # (Auto) 0.1, Sodium 136, Potassium 4.2, Chloride 106, Carbon Dioxide 27, Anion Gap 7.2, BUN 17, Creatinine 0.70, Estimated Creat Clear 185, Estimated GFR 98, Est GFR ( Amer) 119, Glucose 77, Calcium 8.9, Magnesium 2.0, Total Bilirubin 0.5, AST 42 H, ALT 42, Alkaline Phosphatase 48, Total Protein 8.3 H D, Albumin 4.6, Globulin 3.7 H, Albumin/Globulin Ratio 1.2, Lipase 99, Serum HCG, Qual Negative, HIV 1&2 Antibody Rapid Nonreactive 07/29/24 21:14: Lactate 0.7 07/29/24 21:26: Urine Color Yellow, Urine Appearance Clear, Urine pH 6.0, Ur Specific [place] >= 1.030, Urine Protein Negative, Urine Glucose (UA) Negative, Urine Ketones Negative, Urine Blood Negative, Urine Nitrate Negative, Urine Bilirubin Negative, Urine Urobilinogen 0.2, Ur Leukocyte Esterase Negative, Urine WBC 3-5, Ur Squamous Epith Cells 10-20, Urine Bacteria 2+, Urine Mucus 1+ Orders (Tests/Meds): ED MEDICATIONS Discontinued Medications Generic Name Dose Route Start Last Admin Trade Name Freq PRN Reason Stop Dose Admin Iopamidol 75 ml 07/29/24 21:52 07/29/24 21:53 Iopamidol-370 (76%);100ml Bottle IV 07/29/24 21:53 75 ml ONCE ONE Administration Ketorolac Tromethamine 15 mg 07/29/24 22:46 07/29/24 22:51 Ketorolac 30mg/Ml Vial IV 07/29/24 22:47 15 mg ONCE ONE Administration Ondansetron HCl 4 mg 07/29/24 21:08 07/29/24 21:16 Ondansetron 4mg/2ml Vial IV 07/29/24 21:09 4 mg ONCE ONE Administration Sodium Chloride 10 ml 07/29/24 21:52 07/29/24 21:53 Sodium Chloride 0.9% 10ml Syr (Rad Only) IV 07/29/24 21:53 10 ml ONCE ONE Administration ORDERS Category Date Time Status CT abdomen pelvis w con Stat Cat Scan 07/29/24 21:07 Completed CXR --portable [XR chest portable] Stat Exams 07/29/24 21:24 Completed Complete Blood Count Auto Diff Stat Lab 07/29/24 21:11 Completed Comprehensive Metabolic Panel Stat Lab 07/29/24 21:11 Completed HCG Qualitative, Serum Stat Lab 07/29/24 21:11 Completed HIV (1&2) Antibody Rapid Stat Lab 07/29/24 21:11 Completed Hep C Ab with Reflex to RNA Stat Lab 07/29/24 21:11 Received Lactic Acid Stat Lab 07/29/24 21:14 Completed Lipase Stat Lab 07/29/24 21:11 Completed Magnesium Stat Lab 07/29/24 21:11 Completed Urinalysis and Microscopic Stat Lab 07/29/24 21:26 Completed Urine Culture Stat Micro 07/29/24 21:26 Received Medical Decision Narrative: 28-year-old female presents emergency department with abdominal pain and nausea, differential diagnose include but not limited to, small bowel obstruction, ventral hernia, gastroenteritis, appendicitis, pancreatitis, colitis, diverticulitis, ileitis, ileus, pseudo colonic obstruction I discussed patient case with the attending physician Dr. Sequeira Obtain CBC CMP, hCG serum qualitative, CXR, lactic acid level, lipase, nasal, urinalysis, and CT abdomen pelvis with and without contrast for further evaluation as characterization, will give 4 mg IV Zofran for nausea. CBC is unremarkable Beta-hCG is negative CMP is notable for mildly elevated AST at 42 otherwise unremarkable, urinalysis grossly unremarkable, there are negative nitrites, negative leuk esterase. Patient complaining of some pain, will give 15 mg IV Toradol for pain. Patient typically takes ibuprofen at home for her abdominal pain, has not taken any today Hide discussed this is patient's case with with the attending physician Dr. Lorenzo at shift change, he will be assuming remainder the patient's care/workup, disposition will be most likely home, pending CT abdomen pelvis and chest x-ray radiology read. I was consulted by the KAYLEIGH, and we discussed the complexity of the problems being addressed. I approved the treatment and management plan for this patient's care in the Emergency Department, thus performing a substantive portion of the medical decision making. MD Bj Steward MD: I assumed care of the patient at the time of handoff from the prior provider. On reassessment patient remains medically stable and reports symptomatic improvement. CT imaging was independently interpreted by me and shows a large parastomal hernia with no evidence of obstruction. Also shows a large left-sided ovarian cyst. I communicated these findings with patient and encouraged she follow-up with her general surgeon. She is given return precautions for evidence of obstruction. She was also instructed to follow-up for repeat imaging of her ovarian cyst in the next 6 to 12 months. She was discharged in stable condition. Critical Care <KATLYN Vega - Last Filed: 07/29/24 23:00> Critical Care Time Critical Care Time: No
[2024-07-29] MEDS: ONDANSETRON 4MG/2ML VIAL 4 MG IV (21:16)
[2024-07-29 21:24] LABS: Basophils # 0.1 K/mm3 (0-0.2); Basophils % 1.7 % (0.1-2.0); Eosinophils # 0.3 K/mm3 (0.0-0.4); Eosinophils % 4.1 % (0.1-12.0); Hematocrit 45.1 % (37.0-47.0); Lymphocytes # 2.1 K/mm3 (0.7-4.5); Lymphocytes % 28.8 % (10-50); Mean Corpuscular HGB Conc 33.3 g/dL (31.8-35.4); Mean Corpuscular Hemoglobin 30.3 pg (27.0-31.2); Mean Platelet Volume 8.3 fl (7.4-10.4); Monocytes # 0.8 K/mm3 (0.1-1.0); Monocytes % 11.1 % (1.7-9.3); Neutrophils # 3.9 K/mm3 (1.8-7.8); Neutrophils % 54.3 % (37.0-80.0); Platelet Count 420 K/mm3 (142-424); Red Blood Count 4.95 M/mm3 (4.20-5.40); Red Cell Distribution Width 15.1 % (11.5-17.5); White Blood Count 7.2 K/mm3 (4.8-10.8)
--- NOTE | 2024-07-29 21:24 | XR_ITS ---
PROCEDURE INFORMATION: Exam: XR Chest Exam date and time: 07/29/2024 9:42 PM Age: 28 years old Clinical indication: Shortness of breath; Additional info: Shortness of air TECHNIQUE: Imaging protocol: Radiologic exam of the chest. Views: 1 view. COMPARISON: CR XR CHEST 2V 04/19/2024 5:43 PM FINDINGS: Lungs: No evidence of airspace infiltrate. No pulmonary edema. Pleural spaces: No visible pleural effusion. No pneumothorax. Heart/Mediastinum: Cardiomediastinal silouhette is within normal limits. Bones/joints: No evidence of acute osseous abnormality. IMPRESSION: No acute findings.
[2024-07-29 21:33] LABS: Microscopic, Urine URINE MICROSCOPIC (MICROSCOPIC)
[2024-07-29 21:33] LABS: Lactic Acid 0.7 mmol/L (0.7-2.1)
[2024-07-29 21:34] LABS: Albumin Level 4.6 g/dl (3.5-5.0); Chloride 106 mmol/L (98-107)
[2024-07-29 21:34] LABS: Appearance,Urine CLEAR (Clear); Bilirubin,Urine Negative (Negative); Blood, Urine Negative (Negative); Color,Urine YELLOW (Yellow); Glucose,Urine (UA) Negative (Negative); Ketones,Urine Negative (Negative); Leukocyte Esterase,Urine Negative (Negative); Nitrate,Urine Negative (Negative); Protein,Urine Negative (Negative); Specific Gravity, Urine >= 1.030 (1.005-1.030); Urobilinogen,Urine 0.2 EU/dl (0.2)
[2024-07-29 21:35] LABS: Potassium 4.2 mmoL/L (3.5-5.1); Sodium 136 mmol/L (136-145)
[2024-07-29 21:37] LABS: Alanine Aminotransferase 42 U/L (12-78); Anion Gap 7.2 mEq/L (5-15); Aspartate Amino Transferase 42 U/L (14-36); Blood Urea Nitrogen 17 mg/dl (7-17); Carbon Dioxide 27 mmol/L (22.0-30.0); Creatinine Clearance Estimated 185 mL/min (50-200); Estimated Glomerular Filt Rate 98 ml/min (>60); GFR (African American) 119 ML/MIN (>60); HCG Qualitative, Serum Negative (Negative)
[2024-07-29 21:38] LABS: Albumin/Globulin Ratio 1.2 (1.1-1.8); Alkaline Phosphatase 48 U/L (38-126); Bilirubin,Total 0.5 mg/dl (0.2-1.3); Calcium 8.9 mg/dl (8.4-10.2); Globulin 3.7 g/dL (1.3-3.2); Glucose 77 mg/dl (74-100); Lipase 99 U/L (23-300); Total Protein,Serum 8.3 g/dl (6.3-8.2)
[2024-07-29 21:42] LABS: Bacteria,Urine 2+ /lpf; Mucus,Urine 1+ /lpf
[2024-07-29] MEDS: SODIUM CHLORIDE 0.9% 10ML SYR (RAD ONLY) 10 ML IV (21:53)
[2024-07-29] MEDS: IOPAMIDOL-370 (76%);100ML BOTTLE 75 ML IV (21:53)
[2024-07-29 22:02] LABS: HIV (1&2) Antibody Rapid NONREACTIVE (NONREACTIVE)
[2024-07-29] MEDS: KETOROLAC 30MG/ML VIAL 15 MG IV (22:51)
[2024-07-29 23:13] VITALS: BP 130/74; PULSE 74; RESP 18; TEMP 37; O2SAT 99
[2024-07-31 09:13] LABS: HCV Ab Non Reactive (Non Reactive)
== END 2024-07-29 23:21 | disposition home or self-care (01) ==
PROVIDERS: Physician Assistant; Emergency Provider Emergency Medicine; PCP Family Medicine
DX: R10.84 Generalized abdominal pain (principal); N83.292 Other ovarian cyst, left side; K43.5 Parastomal hernia without obstruction or gangrene
CPT/HCPCS: 71045; 74177; 80053; 81001; 83605; 83690; 83735; 84703; 85025; 86803; 87086; 87389; 96374; 96375; 99285; J1885; J2405; Q9967

== ENCOUNTER 2024-10-24 21:41 | Emergency (ER) | payer MEDICAID, SELFPAY ==
[2024-10-24 21:42] VITALS: BP 117/63; PULSE 97; RESP 14; TEMP 36.8; O2SAT 96; BMI 38.7
--- NOTE | 2024-10-24 21:48 | ECG_ITS ---
APPROVED REPORT Exam: Resting ECG HR:93 bpm ECG Measurements Heart Rate 93 AXES HI 149 P 54 QRSd 88 QRS 57 QT 333 T 19 QTc 383 Conclusion SINUS RHYTHM NORMAL ECG UNCONFIRMED REPORT Electronically signed by : TU BARRIOS, 10/26/2024 07:07:54
--- NOTE | 2024-10-24 22:00 | XR_ITS ---
PROCEDURE INFORMATION: Exam: XR Chest Exam date and time: 10/24/2024 10:02 PM Age: 29 years old Clinical indication: Other: Shortness of breath, productive cough TECHNIQUE: Imaging protocol: Radiologic exam of the chest. Views: 1 view. COMPARISON: CR XR CHEST PORTABLE 07/29/2024 9:42 PM FINDINGS: Lungs: Subtle focus of airspace disease left lung base. Pleural spaces: Unremarkable. No pleural effusion. No pneumothorax. Heart/Mediastinum: Unremarkable. No cardiomegaly. Vasculature: Unremarkable. Bones/joints: Unremarkable. IMPRESSION: Small infiltrate versus atelectasis left lung base.
--- NOTE | 2024-10-24 22:02 | ED_ITS ---
Discharge Plan Disposition Patient Disposition: Home, Self-Care Prescriptions Prescriptions: New levofloxacin 750 mg tablet 750 mg PO DAILY 7 Days Qty: 7 0RF No Action Nexplanon 68 mg implant 68 mg subdermal DIRECTED magnesium 250 mg tablet 250 mg PO DAILY Qty: 30 0RF diclofenac sodium 50 mg tablet,delayed release (DR/EC) 50 mg PO BID PRN (Reason: pain) Qty: 60 2RF leflunomide 10 mg tablet 10 mg PO hydroxychloroquine 200 mg tablet 200 mg PO DAILY Patient Comments: TAKE 1 TABLET 1 TIME EACH DAY Debrox 6.5 % drops 5 drp otic (ear) Q12H 4 Days Qty: 15 0RF albuterol sulfate 90 mcg/actuation HFA aerosol inhaler 2 puff inhalation Q6HP PRN (Reason: shortness of breath or wheezing) 30 Days Qty: 6.7 2RF budesonide-formoterol [Symbicort] 80-4.5 mcg/actuation HFA aerosol inhaler 1 inh inhalation BID Qty: 10.2 2RF Referrals Follow up/Referrals: Pranay Mccurdy MD [Primary Care Provider] - See instructions Activity Restrictions/Add. Instructions Additional Instructions/Restrictions: Call your family doctor to establish care for this visit to the emergency department and schedule follow-up within 48 hours to ensure improvement. If you have any worsening of your condition or any other concerning signs or symptoms, return to the emergency department or your primary care doctor for further evaluation. Levofloxacin every day for 7 days. If you start to have pain in your Achilles tendons, elbows, knees, etc., stop taking levofloxacin and return to the emergency department or call your family doctor as it can be signs of inflammation of your tendons. Clinical Impressions Clinical Impression: Left lower lobe pneumonia Print Language Print Language: Chinese Discharge ED Provider: Arjun Sequeira General Adult HPI General Chief complaint: Shortness of Breath/Dyspnea Stated complaint: SOA, lightheaded Time Seen by Provider: 10/24/24 21:47 Mode of Arrival: Ambulatory Source of Information: Patient Limitations: No Limitations Description of Symptoms (Recalled from ER Triage Doc. by RN): Patient reports she is short of air and having body aches since yesterday. States she has ran a fever so she has been taking tylenol- unsure of what fever was, has not taken her temp, just felt like she had one. History of Present Illness HPI narrative: Please note that above description of symptoms, in this electronic medical record under categorization of recalled from ER triage doctor by RN are reflective of an initial nursing assessment, however, is not reflective of my full history and physical exam that was personally taken and clarified. Consequentially, this preceding description of symptoms, which may include the patient's categorized chief complaint in the EMR, do not reflect my personal clinical impression, and the ultimate description of history of present illness and patient stated complaints should be deferred to this section of the note. Unless stated otherwise or congruent with this section of the note, additional signs, symptoms, or incongruence should be interpreted as inaccurate with my clinical impression. Related Data Home Medications ?Medication ?Instructions ?Recorded ?Confirmed etonogestrel 68 mg subdermal 68 mg subdermal DIRECTED 04/24/23 10/13/24 implant (Nexplanon) hydroxychloroquine 200 mg tablet 200 mg PO DAILY 08/30/24 10/13/24 leflunomide 10 mg tablet 10 mg PO 10/13/24 10/13/24 Previous Rx's ?Medication ?Instructions ?Recorded diclofenac sodium 50 mg 50 mg PO BID PRN pain #60 tabs 05/05/24 tablet,delayed release magnesium 250 mg tablet 250 mg PO DAILY #30 tabs 05/05/24 albuterol sulfate 90 mcg/actuation 2 puff inhalation Q6HP PRN 05/07/24 aerosol inhaler shortness of breath or wheezing 30 days #6.7 grams budesonide-formoterol HFA 80 1 inh inhalation BID #10.2 grams 05/07/24 mcg-4.5 mcg/actuation aerosol inhaler (Symbicort) carbamide peroxide 6.5 % ear drops 5 drp otic (ear) Q12H 4 days #15 mL 08/30/24 (Debrox) levofloxacin 750 mg tablet 750 mg PO DAILY 7 days #7 tabs 10/24/24 Allergies Allergy/AdvReac Type Severity Reaction Status Date / Time shellfish derived Allergy Verified 10/13/24 09:28 [facility] Disclaimer: The information contained in this section may have been updated after the patient was seen, as this information can be updated by other users. Medical History Lupus Rheumatoid arthritis Surgical History History of colectomy History of oral surgery Family History Mother Tumor Father Diabetes Grandfather Diabetes Social History Smoking Status: Current every day smoker tobacco type: cigarettes second hand exposure: Yes alcohol intake: current alcohol intake frequency: holidays/special occasions only substance use type: denies use current occupational status: employed Travel in the last 8 weeks: None household members: family housing: house marital status: Have you lived/traveled outside US in past 30 days?: No Contact w/someone who lives/traveled outside US past 30 days?: No Exposure to someone with infectious disease in past 14 days?: No Do you have a fever (greater than 100.4 F or 38 C)?: No Have you tested positive for COVID-19: No Exposed to someone with COVID-19 in past 14 days?: No Do you have a sore throat?: No Do you have a cough?: No Do you have any weakness?: Yes Do you have any diarrhea?: No Are you experiencing any unusual bleeding?: No Do you have any muscle aches/pain?: No Do you have any abdominal pain?: No Are you experiencing loss of taste or smell?: No Other Medical History Have you received the Flu Vaccine for this season: No Have you received the Pneumonia Vaccine: No ROS Obtained: Yes All systems reviewed & no additional complaints except as documented Physical Exam General General appearance: alert and in no apparent distress Head Head exam: atraumatic and normocephalic Eye Eye exam: Present normal appearance, PERRL and EOMI Neck Neck exam: Present normal inspection, full ROM and trachea midline Respiratory Respiratory exam: Present wheezes (Intermittently coughing, left-sided wheezes); Absent respiratory distress, stridor, accessory muscle use or prolonged expiratory phase Cardiovascular Cardiovascular exam: Present regular rate, normal rhythm and other (Pulses equal symmetric in upper and lower extremities) Abdominal Exam Abdominal exam: Present soft; Absent distention, tenderness or pulsatile mass Extremities Exam Extremities exam: Absent edema Neurological Exam Neurological exam: Present alert, oriented X3 and CN II-XII intact; Absent motor sensory deficit Skin Skin exam: Present warm and dry; Absent diaphoresis or erythema Medical Decision Making Medical Records Medical records reviewed: Yes I reviewed the patient's medical records. Screening: Per USPSTF and CDC recommendations, given the prevalence of disease in our region, it is our hospital?s policy to screen for HIV and viral Hepatitis for all patients aged 18 and over and those with ongoing risk factors. [place] Inquiry Pt receiving controlled substance: No [place] was queried for this patient: No Vital Signs: 10/24/24 21:42 10/24/24 22:30 10/24/24 22:50 Temperature 98.3 F Temperature Source Oral Pulse Rate 94 H 95 H Pulse Rate [Right Brachial] 97 H Respiratory Rate 14 20 Blood Pressure 107/65 L Blood Pressure [Right Arm] 117/63 Blood Pressure Mean [Right Arm] 81 Blood Pressure Source [Right Arm] Automatic Cuff Blood Pressure Position [Right Arm] Supine 02 Sat by Pulse Oximetry 96 96 Oxygen Delivery Method Room Air 10/24/24 23:00 Temperature Temperature Source Pulse Rate 95 H Pulse Rate [Right Brachial] Respiratory Rate 20 Blood Pressure 124/65 Blood Pressure [Right Arm] Blood Pressure Mean [Right Arm] Blood Pressure Source [Right Arm] Blood Pressure Position [Right Arm] 02 Sat by Pulse Oximetry Oxygen Delivery Method Lab Data Lab Results 10/24/24 22:01: WBC 20.0 H, RBC 4.31, Hgb 12.7, Hct 37.3, MCV 86.5, MCH 29.5, MCHC 34.0, RDW 13.3, Plt Count 436 H, MPV 9.4, Neut % (Auto) 82.6 H, Lymph % (Auto) 7.8 L, [place] % (Auto) 7.6, Eos % (Auto) 1.2, Baso % (Auto) 0.3, Neut # (Auto) 16.5 H, Lymph # (Auto) 1.6, [place] # (Auto) 1.5 H, Eos # (Auto) 0.2, Baso # (Auto) 0.1, Total Counted 100, Neutrophils % (Manual) 79 H, Lymphocytes % (Manual) 12, Monocytes % (Manual) 7, Eosinophils % (Manual) 2, Platelet Estimate Moderate increase, RBC Morphology Normal, Sodium 133 L, Potassium 4.2, Chloride 106, Carbon Dioxide 27, Anion Gap 4.2 L, BUN 13, Creatinine 0.60, Estimated Creat Clear 213, Estimated GFR 117, Est GFR ( Amer) 141, Glucose 133 H, Calcium 8.8, Total Bilirubin 0.6, AST 32, ALT 45, Alkaline Phosphatase 60, Total Protein 7.8, Albumin 4.0, Globulin 3.8 H, Albumin/Globulin Ratio 1.1 10/24/24 22:20: VBG pH 7.37, VBG pCO2 37.8, VBG pO2 34.0, VBG HCO3 21.5 L, VBG Total CO2 22.7 L, VBG O2 Saturation 66.2, VBG Base Excess -3.7 L, VBG Lactic Acid 1.8 10/24/24 22:01 10/24/24 22:01 Orders (Tests/Meds): ED MEDICATIONS Discontinued Medications Generic Name Dose Route Start Last Admin Trade Name Freq PRN Reason Stop Dose Admin Albuterol/Ipratropium 9 ml 10/24/24 22:00 10/24/24 22:44 Ipratropium/Albuterol 3 Ml Neb IH 10/24/24 22:01 9 ml ONCE ONE Administration Ketorolac Tromethamine 15 mg 10/24/24 22:00 10/24/24 22:18 Ketorolac 30mg/Ml Vial IV 10/24/24 22:01 15 mg ONCE ONE Administration ORDERS Category Date Time Status CXR --portable [XR chest portable] Stat Exams 10/24/24 22:00 Taken CBC w/Auto Diff [Complete Blood Count Auto Diff] Stat Lab 10/24/24 22:01 Completed CMP [Comprehensive Metabolic Panel] Stat Lab 10/24/24 22:01 Completed Blood Culture Stat Micro 10/24/24 23:11 ORD VBG [Venous Blood Gas] Stat RT 10/24/24 22:20 Completed Medical Decision Narrative: 29-year-old female history of lupus, obesity, reactive airway disease, diverticulitis with bowel perforation with ostomy in place presenting with cough. Patient states that this been going on for about a week. Initially had dry cough, now having green productive cough. No fevers or chills measured objectively, but feels warm. No chest pain, diarrhea, abdominal pain, bilious or bloody vomit, or any other concerns. Came in for further evaluation. Does have daughter with similar symptoms. History was obtained via conversation with patient. On arrival, patient hemodynamically stable, alert, oriented x4, appropriate, GCS 15, moving all extremities spontaneously, pupils equal and reactive to light. Full physical exam performed and significant for very well- appearing female no acute distress. Nontachycardic, normotensive, nontachypneic. Speaking in full sentences. Intermittently coughing, not producing anything on my exam. Patient's lungs are clear with the exception of left-sided wheezes anteriorly. Cardiac exam without murmurs gallops or rubs. Patient's abdomen soft, nontender, nondistended. Overall unremarkable physical exam. Differential includes bronchitis, pneumonia, less likely to be ACS, [place], pericarditis, PE, pneumothorax, among others. Patient placed on continuous cardiac monitoring and continuous pulse ox with initial blood pressure 117/63, heart rate 97, saturation 96% on room air. Independent interpretation of EKG shows sinus rhythm. Patient was given levofloxacin, breathing treatments for symptomatic management and correction of underlying abnormalities. Workup independently interpreted and significant for leukocytosis of 20 with neutrophilia. Patient also has thrombocytosis. Gas nonactionable. Patient's chemistry also nonactionable. On independent interpretation of imaging, patient appears to have left lower lobar pneumonia. See radiology read for full review of final results. Patient given first dose of levofloxacin here. On reevaluation, patient resting comfortably. Given patient presentation, workup, history, this most likely represents bronchitis with superimposed pneumonia. Because patient at baseline without signs or symptoms of clinical decompensation, deemed appropriate for discharge. Results were relayed to patient who voiced understanding and were agreeable to outpatient management and follow up. I discussed my clinical impression with patient and answered all questions. At this time, the evidence for any other entities in the differential is insufficient to warrant any further testing or ED observation. This was explained as well. Advisory was given that persistent or worsening symptoms require further evaluation. I confirmed the understanding of this discussion. [employer] disclaimer Much of this encounter note is an electronic commutator operator spoken language to printed text. Electronic commutator operator of the spoken language may permit errors. Although I have reviewed the note, some errors may still exist. Critical Care Critical Care Time Critical Care Time: No
[2024-10-24 22:15] LABS: Chloride 106 mmol/L (98-107); Sodium 133 mmol/L (136-145)
[2024-10-24 22:16] LABS: Potassium 4.2 mmoL/L (3.5-5.1)
[2024-10-24 22:18] LABS: Alanine Aminotransferase 45 U/L (12-78); Albumin/Globulin Ratio 1.1 (1.1-1.8); Anion Gap 4.2 mEq/L (5-15); Aspartate Amino Transferase 32 U/L (14-36); Blood Urea Nitrogen 13 mg/dl (7-17); Carbon Dioxide 27 mmol/L (22.0-30.0); Creatinine Clearance Estimated 213 mL/min (50-200); Estimated Glomerular Filt Rate 117 ml/min (>60); GFR (African American) 141 ML/MIN (>60); Globulin 3.8 g/dL (1.3-3.2); Total Protein,Serum 7.8 g/dl (6.3-8.2)
[2024-10-24] MEDS: KETOROLAC 30MG/ML VIAL 15 MG IV (22:18)
[2024-10-24 22:19] LABS: Alkaline Phosphatase 60 U/L (38-126); Bilirubin,Total 0.6 mg/dl (0.2-1.3); Calcium 8.8 mg/dl (8.4-10.2); Glucose 133 mg/dl (74-100)
[2024-10-24 22:25] LABS: Basophils % 0.3 % (0.1-2.0); Eosinophils % 1.2 % (0.1-12.0); Hematocrit 37.3 % (37.0-47.0); Hemoglobin 12.7 g/dL (12.2-16.2); Lymphocytes % 7.8 % (10-50); Mean Corpuscular Hemoglobin 29.5 pg (27.0-31.2); Mean Corpuscular Volume 86.5 fl (81-99); Mean Platelet Volume 9.4 fl (7.4-10.4); Monocytes % 7.6 % (1.7-9.3); Neutrophils % 82.6 % (37.0-80.0); Platelet Count 436 K/mm3 (142-424); Red Blood Count 4.31 M/mm3 (4.20-5.40); Red Cell Distribution Width 13.3 % (11.5-17.5)
[2024-10-24 22:26] LABS: Basophils # 0.1 K/mm3 (0-0.2); Eosinophils # 0.2 K/mm3 (0.0-0.4); Lymphocytes # 1.6 K/mm3 (0.7-4.5); Monocytes # 1.5 K/mm3 (0.1-1.0); Neutrophils # 16.5 K/mm3 (1.8-7.8)
[2024-10-24 22:27] LABS: Lactate Venous 1.8 mmol/L (0.4-2.0); VBG Base Excess -3.7 mmol/L (-2.4-2.3); VBG HCO3 21.5 mmol/L (23-30); VBG Oxygen Saturation 66.2 % (50-70); VBG PCO2 37.8 mmol/L (35-51); VBG PH 7.37 mmol/L (7.31-7.41); VBG Total CO2 22.7 mmol/L (23-27)
[2024-10-24 22:27] LABS: MANUAL DIFFERENTIAL MANUAL DIFFERENTIAL (MANUAL DIFF)
[2024-10-24 22:30] VITALS: BP 107/65; PULSE 94; RESP 20; O2SAT 96
[2024-10-24] MEDS: IPRATROPIUM/ALBUTEROL 3 ML NEB 9 ML IH (22:44)
[2024-10-24 22:48] LABS: Eosinophils % 2 % (0-3); Lymphocytes % 12 % (10-50); Monocytes % 7 % (2-9); Neutrophils % 79 % (42-76); Platelet Estimate Moderate Increase; RBC Morphology Normal; Total Cells Counted 100
[2024-10-24 22:50] VITALS: PULSE 95
[2024-10-24 23:00] VITALS: BP 124/65; PULSE 95; RESP 20
--- NOTE | 2024-10-24 23:23 | PC.NURSE ---
per MD only one set of blood cultures is needed
[2024-10-24 23:24] VITALS: BP 124/65; PULSE 103; RESP 20; TEMP 37; O2SAT 98
[2024-10-24] MEDS: levoFLOXacin 750 MG TABLET PO (23:24)
== END 2024-10-24 23:35 | disposition home or self-care (01) ==
PROVIDERS: Emergency Provider Emergency Medicine; PCP Internal Medicine Adolescent Medicine
DX: R06.02 Shortness of breath (principal); M79.10 Myalgia, unspecified site; R50.9 Fever, unspecified; J18.9 Pneumonia, unspecified organism
CPT/HCPCS: 71045; 80053; 82803; 85007; 85025; 85027; 87040; 93005; 96374; 99284; J1885; J7620

== ENCOUNTER 2024-11-05 08:27 | Outpatient (CLI) | payer MEDICAID, SELFPAY ==
[2024-11-05 08:33] VITALS: BMI 38.9
[2024-11-05 08:57] LABS: Microscopic, Urine URINE MICROSCOPIC (MICROSCOPIC)
[2024-11-05 09:04] LABS: Appearance,Urine CLEAR (Clear); Basophils # 0.1 K/mm3 (0-0.2); Basophils % 0.4 % (0.1-2.0); Bilirubin,Urine Negative (Negative); Blood, Urine 1+ (Negative); Color,Urine YELLOW (Yellow); Eosinophils # 0.2 K/mm3 (0.0-0.4); Glucose,Urine (UA) Negative (Negative); Hematocrit 41.5 % (37.0-47.0); Hemoglobin 13.9 g/dL (12.2-16.2); Ketones,Urine Negative (Negative); Leukocyte Esterase,Urine Negative (Negative); Lymphocytes # 2.6 K/mm3 (0.7-4.5); Lymphocytes % 23.1 % (10-50); Mean Corpuscular HGB Conc 33.5 g/dL (31.8-35.4); Mean Corpuscular Hemoglobin 29.8 pg (27.0-31.2); Mean Corpuscular Volume 89.1 fl (81-99); Mean Platelet Volume 9.1 fl (7.4-10.4); Monocytes # 0.9 K/mm3 (0.1-1.0); Monocytes % 7.5 % (1.7-9.3); Neutrophils # 7.5 K/mm3 (1.8-7.8); Neutrophils % 66.6 % (37.0-80.0); Nitrate,Urine Negative (Negative); Platelet Count 456 K/mm3 (142-424); Protein,Urine Negative (Negative); Red Blood Count 4.66 M/mm3 (4.20-5.40); Red Cell Distribution Width 13.9 % (11.5-17.5); Specific Gravity, Urine 1.025 (1.005-1.030); Urobilinogen,Urine 0.2 EU/dl (0.2); White Blood Count 11.3 K/mm3 (4.8-10.8)
[2024-11-05 09:05] LABS: Urine Pregnancy, HCG Qual. Negative (Negative)
[2024-11-05 09:26] LABS: Bacteria,Urine 1+ /lpf; RBC,Urine Occasional #/hpf (0-3)
== END 2024-11-05 23:59 | disposition home or self-care (01) ==
PROVIDERS: Visit Provider Surgery
DX: Z01.812 Encounter for preprocedural laboratory examination (principal)
CPT/HCPCS: 81001; 81025; 85025

== ENCOUNTER 2024-11-11 14:24 | Inpatient (IN) | payer MEDICAID, SELFPAY ==
[2024-11-10 07:57] VITALS: BMI 38.7
[2024-11-11] VITALS (22 sets, daily range): BP systolic 97–126; BP diastolic 56–79; PULSE 71–104; RESP 16–20; TEMP 36.2–36.9; O2SAT 90–98; BMI 38.6
[2024-11-11] MEDS: 0.9 % SODIUM CHLORIDE 1000ML 1,000 ML 25 ML IV (07:57)
[2024-11-11] MEDS: ENOXAPARIN 30MG/0.3ML SYRINGE 30 MG SUBCUT (07:57)
--- NOTE | 2024-11-11 08:04 | P.PNANES_ITS ---
[facility] Disclaimer: The information contained in this section may have been updated after the patient was seen, as this information can be updated by other users. Medical History Lupus Rheumatoid arthritis Surgical History History of colectomy History of oral surgery Family History Mother Tumor Father Diabetes Grandfather Diabetes Other Fibromatosis Social History (Updated 11/11/24 @ 07:41 by Judith Cabezas RN) Smoking Status: Current every day smoker tobacco type: cigarettes second hand exposure: Yes alcohol intake: current alcohol intake frequency: holidays/special occasions only substance use type: denies use current occupational status: employed Travel in the last 8 weeks: None household members: family housing: house marital status: Have you lived/traveled outside [place] in past 30 days?: No Contact w/someone who lives/traveled outside US past 30 days?: No Exposure to someone with infectious disease in past 14 days?: No Do you have a fever (greater than 100.4 F or 38 C)?: No Have you tested positive for COVID-19: No Exposed to someone with COVID-19 in past 14 days?: No Do you have a sore throat?: No Do you have a cough?: No Do you have any weakness?: No Are you experiencing any nausea/vomitting?: No Do you have any diarrhea?: No Are you experiencing any unusual bleeding?: No Do you have any muscle aches/pain?: No Do you have any abdominal pain?: No Are you experiencing loss of taste or smell?: No [facility] Anesthesia Checklist Patient Identification Patient Identification: Arm Band, Family and Verbal (Name & ) Structural Data Admitted From: Home Planned Operative Procedure/s: Colostomy takedown Consent for Planned Operative Procedure(s) Verified: Yes Verified Documents: Surgical Consent and History and Physical NPO Status Verified Time NPO: 19:30 Chart Verification Results Verified: CBC, BMP, ECG, Chest Xray and HCG Additional verifications Patient : No Anesthesia Reactions: No Hx Blood Transfusions: No Blood Transfusion Reaction: No Cardiovascular Assessment Heart Sounds: S1 & S2 Pulse Rhythm: Irregular Peripheral Edema: No Airway Assessment Mallampati Score:: Class III C-Spine Mobility Assessed: Yes (FROM) TMJ Mobility Assessed: Yes Dentition: Good Dentition (Nothing loose per pt.) Neurological Assessment Level of Consciousness: Awake, Alert, Appropriate and Follows Commands Hx Seizures: No Numbness or tingling in extremities: No Anesthesia Plan Anesthesia Risk discussed: Yes Anesthesia Plan: Verified ASA Class: III Anesthesia Type: General
[2024-11-11] MEDS: METRONIDAZ/SOD CHL 500 MG/100 ML PIGGYBACK 100 MG IV (08:32)
[2024-11-11] MEDS: CEFAZOLIN SODIUM 2 GM in 0.9 % SODIUM CHLORIDE 100 ML IV (08:32)
--- NOTE | 2024-11-11 09:12 | HMH.PHAINT1 ---
Pharmacy Intervention Comments: home medication list verified using list from outpatient pharmacy
--- NOTE | 2024-11-11 11:16 | SUR.OPER ---
the patients mother was called and updated on status of surgery.
--- NOTE | 2024-11-11 13:37 | P.PNANES_ITS ---
[facility] Anesthesia Record Part I Anesthesia Record I Intake, IV Amount: 1,700 Hydration: Adequate Estimated blood loss (mL): 100 Urine output (mL): 200 Blood Products used (#): none Blood Pressure: 115/66 SaO2: 92 Pulse Rate: 104 Airway Patency: Patent Respiratory Rate: 20 Temperature: 97.8 F Patient is:: Drowsy and Stable Stable to PACU at:: 13:30
[2024-11-11] MEDS: PROMETHAZINE HCL 25MG/ML 1ML VIAL 6.25 MG IV (13:45)
[2024-11-11] MEDS: SODIUM CHLORIDE 0.9% 25ML BAG 25 ML IV (13:45)
[2024-11-11] MEDS: MORPHINE 2MG/ML SYRINGE 2 MG IV ×2 (13:45→13:58)
--- NOTE | 2024-11-11 14:00 | EXP.GEN.HP ---
HPI HPI HPI: Forwarded from office visit dated October 13, 2024: The patient returns for additional follow-up status post sigmoid resection with end colostomy for severe diverticulitis on April 15, 2024. She is without complaint. She wishes to undergo ostomy takedown. [facility] Disclaimer: The information contained in this section may have been updated after the patient was seen, as this information can be updated by other users. Medical History Lupus Rheumatoid arthritis Surgical History History of colectomy History of oral surgery Family History Grandfather Diabetes Father Grandfather Fibromatosis Tumor Mother Social History Smoking Status: Current every day smoker tobacco type: cigarettes second hand exposure: Yes alcohol intake: current alcohol intake frequency: holidays/special occasions only substance use type: denies use current occupational status: employed Travel in the last 8 weeks: None household members: family housing: house marital status: Have you lived/traveled outside US in past 30 days?: No Contact w/someone who lives/traveled outside US past 30 days?: No Exposure to someone with infectious disease in past 14 days?: No Do you have a fever (greater than 100.4 F or 38 C)?: No Have you tested positive for COVID-19: No Exposed to someone with COVID-19 in past 14 days?: No Do you have a sore throat?: No Do you have a cough?: No Do you have any weakness?: No Are you experiencing any nausea/vomitting?: No Do you have any diarrhea?: No Are you experiencing any unusual bleeding?: No Do you have any muscle aches/pain?: No Do you have any abdominal pain?: No Are you experiencing loss of taste or smell?: No Other Medical History Have you received the Flu Vaccine for this season: No Have you received the Pneumonia Vaccine: No Review of Systems Constitutional Constitutional: Reports system reviewed and no additional complaints, except as documented Eyes Eyes: Reports system reviewed and no additional complaints, except as documented ENT Ears, Nose, Mouth, and Throat: Reports system reviewed and no additional complaints, except as documented *Cardiovascular Cardiovascular: Reports system reviewed and no additional complaints, except as documented *Respiratory Respiratory: Reports system reviewed and no additional complaints, except as documented *Gastrointestinal Gastrointestinal: Reports system reviewed and no additional complaints, except as documented *Genitourinary Genitourinary: Reports system reviewed and no additional complaints, except as documented *Musculoskeletal Musculoskeletal: Reports system reviewed and no additional complaints, except as documented Integumentary/Breasts Skin/Breast: Reports system reviewed and no additional complaints, except as documented *Neurologic Neurologic: Reports system reviewed and no additional complaints, except as documented Psychiatric Psychiatric: Reports system reviewed and no additional complaints, except as documented Endocrine Endocrine: Reports system reviewed and no additional complaints, except as documented Hematologic/Lymphatic Hematologic/Lymphatic: Reports system reviewed and no additional complaints, except as documented Allergic/Immunologic Allergic/Immunologic: Reports system reviewed and no additional complaints, except as documented Meds Home Medications and Allergies Home Medications ?Medication ?Instructions ?Recorded ?Confirmed ?Type etonogestrel 68 mg subdermal 68 mg subdermal DIRECTED 04/24/23 11/11/24 History implant (Nexplanon) albuterol sulfate 90 mcg/actuation 2 puff inhalation Q6HP PRN 05/07/24 11/11/24 Rx aerosol inhaler shortness of breath or wheezing 30 days #6.7 grams budesonide-formoterol HFA 80 1 inh inhalation BID #10.2 grams 05/07/24 11/11/24 Rx mcg-4.5 mcg/actuation aerosol inhaler (Symbicort) hydroxychloroquine 200 mg tablet 200 mg PO DAILY lupus 08/30/24 11/11/24 History leflunomide 10 mg tablet 10 mg PO DAILY lupus 10/13/24 11/11/24 History diclofenac sodium 50 mg 50 mg PO BIDP PRN arthritic pain 11/11/24 11/11/24 History tablet,delayed release New Prescriptions to Start Prescriptions: Allergies Allergy/AdvReac Type Severity Reaction Status Date / Time shellfish derived Allergy Hives Verified 11/11/24 07:49 Exam Data for Last 24 hours Vital signs and Labs for Last 24 Hours: Temp Pulse Resp BP Pulse Ox O2 Del Method 97.8 F 76 16 98/60 L 95 Room Air 11/11/24 13:39 11/11/24 13:55 11/11/24 13:55 11/11/24 13:55 11/11/24 13:55 11/11/24 13:55 I & O for Last 24 hours: Intake & Output 11/09/24 11/10/24 11/11/24 11/12/24 11:59 11:59 11:59 11:59 Intake Total 1700 / 1700 Balance 1700 / 1700 Weight 219 lb 218 lb Constitutional Constitutional: no acute distress *Routine HEENT Exam Head: Present normocephalic Eye: Present EOMI ENT: Present mucous membranes moist *Routine Neck Exam Neck: Present full ROM Routine Chest/Breast/Axilla Exam Chest wall: Absent tenderness *Routine Respiratory Exam Respiratory: Absent respiratory distress *Routine Cardiovascular Exam Cardiovascular: Absent tachycardia *Routine Abdominal Exam Abdominal: Present soft *Routine Rectal Exam Rectal:: deferred *Routine Genitalia Exam Genitalia:: deferred *Routine Extremities Exam Extremities: Present full ROM Routine Back/Spine/Pelvis Exam Back/Spine: Present full ROM *Routine Skin Exam Skin: Absent erythema *Routine Neurological Exam Neurological: Present alert Routine Psychiatric Exam Psychiatric: Present normal affect Assessment and Plan *Assessment and plan (1) Status post colostomy: Status: Acute Category: Surgical Code(s): Z93.3 - Colostomy status (2) Diverticulitis: Status: Acute Category: Medical Code(s): K57.92 - Diverticulitis of intestine, part unspecified, without perforation or abscess without bleeding (3) COPD (chronic obstructive pulmonary disease): Status: Acute Qualifiers: COPD type: unspecified COPD Qualified Code(s): J44.9 - Chronic obstructive pulmonary disease, unspecified Category: Medical Code(s): J44.9 - Chronic obstructive pulmonary disease, unspecified (4) 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: Status: Acute Qualifiers: Serious obesity comorbidity presence: with serious comorbidity Qualified Code(s): E66.813 - Obesity, class 3; E66.2 - Morbid (severe) obesity with alveolar hypoventilation; Z68.42 - Body mass index [BMI] 45.0-49.9, adult Category: Medical Code(s): E66.813 - Obesity, class 3; E66.2 - Morbid (severe) obesity with alveolar hypoventilation; Z68.42 - Body mass index [BMI] 45.0-49.9, adult (5) Rheumatoid arthritis: Status: Acute Qualifiers: Rheumatoid arthritis location: unspecified site Rheumatoid factor presence: unspecified presence Qualified Code(s): M06.9 - Rheumatoid arthritis, unspecified Category: Medical Code(s): M06.9 - Rheumatoid arthritis, unspecified (6) Lupus: Status: Chronic Category: Medical Code(s): M32.9 - Systemic lupus erythematosus, unspecified Plan Plan colostomy takedown I have discussed the risks and benefits including, but not limited to: Bleeding Infection Damage to surrounding tissue Inherent risks of sedation The patient agrees to proceed.
--- NOTE | 2024-11-11 14:05 | P.OP_ITS ---
Date of procedure: 11/11/24 Pre-op Diagnosis:: Presence of sigmoid colostomy (status post Rosas's procedure for complicated diverticulitis) Post-op Diagnosis:: Same Procedure performed:: Sigmoid colostomy takedown with primary hand-sewn anastomosis Diverting loop ileostomy Surgeon:: Rod Nieves MD Physical Therapy Instructor(s):: Ascencion Leigh MD MINING DETAIL DRAFTSPERSON:: Parviz Stiles Anesthesia: GETA Estimated blood loss (mL): 100 Operative findings:: Large complex parastomal hernia Large lower midline incisional hernia with rightward projection Diverting loop ileostomy created secondary to colonic caliber Operative note:: After informed consent was obtained the patient was taken to the operating room and placed in the supine position. General anesthesia was induced and her abdomen was prepped and draped in a sterile fashion after skin-level closure of her stoma. Her prior midline incision was reopened with a combination of sharp dissection, electrocautery, and blunt dissection. As the abdomen was entered a complex lower midline incisional hernia with rightward projection was confirmed. Multiple adhesive bands were noted throughout the abdominal cavity including small bowel to small bowel adhesions, small bowel to colon adhesions, and omental adhesions. The adhesions were carefully taken down with a combination of electrocautery and sharp dissection. Attention was turned to the left lower quadrant colostomy. Electrocautery and blunt dissection was utilized to transect through the deeper subcutaneous tissue. Dissection was utilized from an anterior approach and from a posterior approach secondary to a known complex stomal hernia. All contents were freed from the defect. The stomal defect was then reapproximated with #2 Novafil. The stomal margin of the colostomy was removed via linear stapling device to create a new margin for anastomosis . Appropriate length of the remaining sigmoid stump (to allow for tension-free anastomosis) was confirmed. The decision was made to proceed with a hand-sewn anastomosis. The 2 ends of colon were brought into end-to-end apposition. The posterior margin was approximated with interrupted Nurolon. Each end was then opened with electrocautery with removal of the stapled margins. Running Vicryl suture was used to approximate the mucosal margin. The anterior serosal margin was then approximated with completion of the interrupted Nurolon. During the anastomosis confirmation of a fairly small caliber colon was confirmed. The decision was made to proceed with a diverting loop ileostomy secondary to this colonic caliber and concerns for possible stricture and/or increased risk for leak. The distal ileum was carefully elevated. The point of maximum elevation was chosen to bring through a new right lower quadrant stoma site that was performed via electrocautery with a cruciate fascial incisions. The natural location of the stomal site was adjacent to the hernia margin; therefore, this portion of the fascia was closed at the midline with interrupted 0 Ethibond. The remaining midline fascia was reapproximated with #2 Novafil (above and below the Ethibond site of closure). The deep subcutaneous tissue was reapproximated with interrupted Vicryl and skin was then closed with a combination of 4-0 nylon and kelsi. The left lower quadrant stomal incision was closed partially with 4-0 nylon (with 2 small openings for packing). The loop ileostomy was then matured and diogo budded to the degree possible given patient's body habitus utilizing interrupted Vicryl suture. Dressings were applied and the patient was transferred to recovery in stable condition after extubation. Condition: stable Disposition: PACU Specimens:: None Complications:: No immediate
[2024-11-11] MEDS: MORPHINE 10MG/ML 30ML PCA IV (14:44)
[2024-11-11] MEDS: 0.9 % SODIUM CHLORIDE 1000ML 1,000 ML 125 ML IV ×2 (14:47→23:07)
--- NOTE | 2024-11-11 19:36 | PC.NURSE ---
patient received 9mg morphine via SHORTHAND TEACHER pump
--- NOTE | 2024-11-11 20:15 | PC.NURSE ---
I consulted Ezequiel ROMERO at 20:13 to clarify the patient's NPO diet order. He stated that he is also completely fine with her having a few sips of water and ice chips, but does not want her to consume anything else as of right now.
[2024-11-11] MEDS: SODIUM CHLORIDE 0.9% 10ML VIAL 10 ML IV (20:49)
[2024-11-11] MEDS: PANTOPRAZOLE 40MG VIAL 40 MG IV (20:49)
--- NOTE | 2024-11-12 00:11 | PC.NURSE ---
Intravenous CARD MOUNTER pump cleared at this time. Patient received 14 mg of morphine thus far for this shift.
--- NOTE | 2024-11-12 02:00 | PC.NURSE ---
Addendum entered by Jessica Reeves RN 11/12/24 03:28: Broken vial was wasted in [facility]/controlled substance container with Tiara Dunlap RN and house decorator (Olga Bustamante). Original Note: Entry for : to current time: Attempted to change the morphine vial for the MAIL ORDER SORTER pump due to running out, but the vial was broken in the process. Unable to contact pharmacy to obtain another vial (no more available vials in the second floor [facility]). Reese ROMERO was contacted by the charge nurse (Tonny Medellin RN) for new orders; verbal order was sent in by the charge nurse to the overnight pharmacy. Pending new interventions at this time. Patient has had a total of 18.6 mg of morphine for this shift. MAIL ORDER SORTER pump has been turned off for now.
[2024-11-12] MEDS: MORPHINE 2MG/ML SYRINGE 1 MG IV ×3 (02:20→07:38)
[2024-11-12] MEDS: MORPHINE 2MG/ML SYRINGE 2 MG IV ×2 (03:45→06:15)
[2024-11-12 04:00] VITALS: BP 125/76; PULSE 84; RESP 18; TEMP 36.7; O2SAT 97; BMI 39.5
--- NOTE | 2024-11-12 04:02 | PC.NURSE ---
Patient is alert and oriented x4. Patient was observed to have wakeful periods and resting periods (eyes closed, respirations even and unlabored on room air) throughout the shift. She has complained of consistent abdominal pain this shift. Patient's pain was initially treated by intravenous morphine via LIBRARY CATALOGING TECHNICIAN pump; however, due to unavailability of vials on the floor (see prior note, happened around 01:20), and no way to obtain a vial from the vault, the LIBRARY CATALOGING TECHNICIAN pump had to be put on hold and new morphine administration orders were obtained from Reese ROMERO. An ice pack was also provided for the patient's abdomen as a means of additional pain relief this shift. Upon assessment of the patient's abdomen, it was puffy, soft, and tender to palpation. Midline and horizontal dressings in place and remain dry and intact thus far. An ileostomy resides in the right lower abdominal quadrant; stoma appears to be beefy red. She has a Mcdaniel catheter in place; adequate urine output has been emptied and documented accordingly. Patient's skin was slightly moist during assessment; an oscillating fan was provided, patient satisfied this shift. She has remained on an NPO diet with sips and chips. She has been tolerating a water/ice chip intake well; she was encouraged to consume the water slowly. Auscultation of her heart and lungs were within normal findings; bowel sounds were hypoactive. Vital signs have been stable this shift. Medications have been administered accordingly per MAR. Normal saline has been infusing at 125 mL/hr. At this time, the patient is resting supine in bed. She has been educated about sudden movements, bed rest, and splinting her abdomen during coughing to avoid dehiscence this shift. No acute changes noted thus far. Call light within reach.
[2024-11-12 06:33] LABS: Basophils % 0.3 % (0.1-2.0); Eosinophils % 0.2 % (0.1-12.0); Hematocrit 37.2 % (37.0-47.0); Hemoglobin 12.3 g/dL (12.2-16.2); Lymphocytes # 1.7 K/mm3 (0.7-4.5); Lymphocytes % 15.2 % (10-50); Mean Corpuscular HGB Conc 33.1 g/dL (31.8-35.4); Mean Corpuscular Volume 90.7 fl (81-99); Mean Platelet Volume 9.1 fl (7.4-10.4); Monocytes # 1.5 K/mm3 (0.1-1.0); Monocytes % 13.8 % (1.7-9.3); Neutrophils # 7.7 K/mm3 (1.8-7.8); Neutrophils % 70.2 % (37.0-80.0); Platelet Count 351 K/mm3 (142-424); Red Cell Distribution Width 14.6 % (11.5-17.5)
[2024-11-12 06:42] LABS: Anion Gap 7.4 mEq/L (5-15); Blood Urea Nitrogen 9 mg/dl (7-17); Calcium 7.8 mg/dl (8.4-10.2); Carbon Dioxide 27 mmol/L (22.0-30.0); Chloride 105 mmol/L (98-107); Creatinine Clearance Estimated 186 mL/min (50-200); Estimated Glomerular Filt Rate 98 ml/min (>60); GFR (African American) 118 ML/MIN (>60); Glucose 84 mg/dl (74-100); Potassium 4.4 mmoL/L (3.5-5.1); Sodium 135 mmol/L (136-145)
[2024-11-12 06:55] LABS: Microscopic,Cath URINE MICROSCOPIC (MICROSCOPIC)
[2024-11-12] MEDS: PIPERACILLIN/TAZO 4.5 GM in 0.9 % SODIUM CHLORIDE 100 ML IV ×3 (07:02→18:49)
--- NOTE | 2024-11-12 07:04 | P.PN_ITS ---
Subjective Narrative: Expected post-operative pain Exam Data for Last 24 hours Vital signs and Labs for Last 24 Hours: Temp Pulse Resp BP Pulse Ox O2 Del Method 98.1 F 84 18 125/76 97 Room Air 11/12/24 04:00 11/12/24 04:00 11/12/24 04:00 11/12/24 04:00 11/12/24 04:00 11/12/24 05:00 Laboratory Results - last 24 hr 11/12/24 06:18: WBC 11.0 H, RBC 4.10 L, Hgb 12.3, Hct 37.2, MCV 90.7, MCH 30.0, MCHC 33.1, RDW 14.6, Plt Count 351, MPV 9.1, Neut % (Auto) 70.2, Lymph % (Auto) 15.2, [place] % (Auto) 13.8 H, Eos % (Auto) 0.2, Baso % (Auto) 0.3, Neut # (Auto) 7.7, Lymph # (Auto) 1.7, [place] # (Auto) 1.5 H, Eos # (Auto) 0.0, Baso # (Auto) 0.0, Sodium 135 L, Potassium 4.4, Chloride 105, Carbon Dioxide 27, Anion Gap 7.4, BUN 9, Creatinine 0.70, Estimated Creat Clear 186, Estimated GFR 98, Est GFR ( Amer) 118, Glucose 84, Calcium 7.8 L I & O for Last 24 hours: Intake & Output 11/09/24 11/10/24 11/11/24 11/12/24 11:59 11:59 11:59 11:59 Intake Total 2903 / 2903 Output Total 1800 / 1800 Balance 1103 / 1103 Weight 219 lb 218 lb 223 lb 3 oz Constitutional Constitutional: no acute distress *Routine Respiratory Exam Respiratory: Absent respiratory distress *Routine Cardiovascular Exam Cardiovascular: Absent tachycardia *Routine Abdominal Exam Comments: Dressings in place. No erythema. Ostomy viable. 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 labs
[2024-11-12 07:31] LABS: Appearance,Urine/Cath CLEAR (Clear); Bilirubin,Cath Negative (Negative); Blood, Urine/Cath Negative (Negative); Color,Urine/Cath YELLOW (Yellow); Glucose,Urine/Cath (UA) Negative (Negative); Ketones,Urine/Cath Negative (Negative); Leukocyte Esterase,Cath Negative (Negative); Nitrate,Cath POSITIVE (Negative); PH,Urine/Cath 5.5 (5.0-8.5); Protein,Urine/Cath Negative (Negative); Specific Gravity, Urine/Cath >= 1.030 (1.005-1.030); Urobilinogen,Cath 0.2 EU/dl (0.2)
[2024-11-12 07:33] VITALS: BP 134/74; PULSE 96; RESP 19; TEMP 36.6; O2SAT 96
[2024-11-12 08:10] LABS: Bacteria,Urine/Cath 1+ /lpf
[2024-11-12] MEDS: 0.9 % SODIUM CHLORIDE 1000ML 1,000 ML 125 ML IV ×2 (08:32→15:37)
[2024-11-12] MEDS: MORPHINE 10MG/ML 30ML PCA IV ×3 (08:33→21:59)
[2024-11-12] MEDS: ENOXAPARIN 40MG/0.4ML SYRINGE 40 MG SUBCUT (09:27)
[2024-11-12] MEDS: HYDROXYCHLOROQUINE SULFATE 200MG TABLET 200 MG PO (09:27)
[2024-11-12] MEDS: ONDANSETRON 4MG/2ML VIAL 4 MG IV (10:55)
[2024-11-12 16:00] VITALS: BP 112/70; PULSE 94; RESP 20; TEMP 36.6; O2SAT 93
[2024-11-12] MEDS: FLUTICASONE/SALMETEROL 250/50MCG DISKUS 1 PUFF IH (18:36)
--- NOTE | 2024-11-12 19:16 | PC.NURSE ---
44.8mg cleared from VESSEL WELDER pump. Dressings changed at approximately 1830
[2024-11-12 20:00] VITALS: BP 116/70; PULSE 98; RESP 16; TEMP 37.1; O2SAT 89
[2024-11-12] MEDS: SODIUM CHLORIDE 0.9% 10ML VIAL 10 ML IV (23:09)
[2024-11-12] MEDS: PANTOPRAZOLE 40MG VIAL 40 MG IV (23:09)
[2024-11-13] VITALS (7 sets, daily range): BP systolic 114–122; BP diastolic 57–77; PULSE 88–94; RESP 16–18; TEMP 36.6–36.8; O2SAT 92–96; BMI 40.2
[2024-11-13] MEDS: 0.9 % SODIUM CHLORIDE 1000ML 1,000 ML 125 ML IV (00:17)
[2024-11-13] MEDS: PIPERACILLIN/TAZO 4.5 GM in 0.9 % SODIUM CHLORIDE 100 ML IV ×4 (01:42→18:15)
[2024-11-13] MEDS: MORPHINE 2MG/ML SYRINGE 1 MG IV ×2 (06:04→07:30)
[2024-11-13] MEDS: FLUTICASONE/SALMETEROL 250/50MCG DISKUS 1 PUFF IH (06:52)
--- NOTE | 2024-11-13 07:16 | PC.NURSE ---
PT had a total of 40 mg per ELECTRIC BLASTING CAP ASSEMBLER Pump
[2024-11-13] MEDS: ENOXAPARIN 40MG/0.4ML SYRINGE 40 MG SUBCUT ×2 (08:59→20:34)
[2024-11-13] MEDS: HYDROXYCHLOROQUINE SULFATE 200MG TABLET 200 MG PO (08:59)
[2024-11-13] MEDS: MORPHINE 10MG/ML 30ML PCA IV ×2 (09:57→20:31)
--- NOTE | 2024-11-13 10:14 | EXP.SURG.PN ---
Subjective Patient reports: no new complaints Exam Data for Last 24 hours Vital signs and Labs for Last 24 Hours: Temp Pulse Resp BP Pulse Ox O2 Del Method 97.9 F 94 H 16 122/61 92 L Room Air 11/13/24 07:47 11/13/24 07:47 11/13/24 07:47 11/13/24 07:47 11/13/24 07:47 11/13/24 07:47 I & O for Last 24 hours: Intake & Output 11/10/24 11/11/24 11/12/24 11/13/24 11:59 11:59 11:59 11:59 Intake Total 2903 / 2903 985 / 985 Output Total 2450 / 2450 Balance 453 / 453 984 / 984 Weight 219 lb 218 lb 223 lb 3 oz 227 lb 1.6 oz Constitutional Constitutional: no acute distress *Routine Respiratory Exam Respiratory: Absent respiratory distress *Routine Cardiovascular Exam Cardiovascular: Absent tachycardia *Routine Abdominal Exam Comments: Ileostomy pink/viable. Fluid and air within ileostomy bag. Midline incision healing without evidence of infection. Colostomy takedown site without erythema. 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
[2024-11-13] MEDS: ONDANSETRON 4MG/2ML VIAL 4 MG IV (17:47)
--- NOTE | 2024-11-13 17:58 | PC.NURSE ---
20 MG MORPHINE CLEARED FROM MONOTYPE KEYBOARD OPERATOR
[2024-11-13] MEDS: PANTOPRAZOLE 40MG VIAL 40 MG IV (20:33)
[2024-11-14] VITALS (7 sets, daily range): BP systolic 91–115; BP diastolic 51–62; PULSE 76–90; RESP 16–17; TEMP 36.6–36.8; O2SAT 93–99; BMI 40.1
[2024-11-14] MEDS: PIPERACILLIN/TAZO 4.5 GM in 0.9 % SODIUM CHLORIDE 100 ML IV ×2 (00:29→05:42)
--- NOTE | 2024-11-14 04:43 | PC.NURSE ---
29 yo fe pt is A/O X 4. She continues to use STAFF SERVICES MANAGER pump for pain management. Pt has been up to BR to void through the night with standby assist. She has also had some output in her ileostomy but would not empty or burp bag stating I can't do it . Nurse encouraged pt to begin ambulating and caring for her ostomy in preparation for discharging home . She has tolerated clear liquid diet eating jello and sherbet along with liquids. Dressing to abdomen C/D/I. Pt has not slept much this shift.
--- NOTE | 2024-11-14 05:47 | PC.NURSE ---
Addendum 27 mg cleared from PRODUCTION GRADER pump
[2024-11-14 08:16] LABS: Basophils % 0.3 % (0.1-2.0); Eosinophils # 0.4 K/mm3 (0.0-0.4); Eosinophils % 4.4 % (0.1-12.0); Hematocrit 32.4 % (37.0-47.0); Hemoglobin 10.7 g/dL (12.2-16.2); Lymphocytes # 1.5 K/mm3 (0.7-4.5); Mean Corpuscular Hemoglobin 29.6 pg (27.0-31.2); Mean Corpuscular Volume 89.8 fl (81-99); Mean Platelet Volume 9.1 fl (7.4-10.4); Monocytes # 1.3 K/mm3 (0.1-1.0); Neutrophils # 5.8 K/mm3 (1.8-7.8); Platelet Count 305 K/mm3 (142-424); Red Blood Count 3.61 M/mm3 (4.20-5.40); Red Cell Distribution Width 14.2 % (11.5-17.5)
[2024-11-14 08:28] LABS: Chloride 104 mmol/L (98-107); Potassium 3.2 mmoL/L (3.5-5.1); Sodium 132 mmol/L (136-145)
[2024-11-14] MEDS: ENOXAPARIN 40MG/0.4ML SYRINGE 40 MG SUBCUT ×2 (08:28→20:57)
[2024-11-14] MEDS: HYDROXYCHLOROQUINE SULFATE 200MG TABLET 200 MG PO (08:28)
[2024-11-14 08:31] LABS: Creatinine Clearance Estimated 129 mL/min (50-200); Estimated Glomerular Filt Rate 144 ml/min (>60); GFR (African American) 174 ML/MIN (>60)
[2024-11-14 08:32] LABS: Anion Gap 7.2 mEq/L (5-15); Calcium 7.4 mg/dl (8.4-10.2); Carbon Dioxide 24 mmol/L (22.0-30.0); Glucose 94 mg/dl (74-100)
[2024-11-14 08:36] LABS: Blood Urea Nitrogen < 2 mg/dl (7-17)
--- NOTE | 2024-11-14 10:19 | P.PN_ITS ---
Subjective Patient reports: no new complaints, feels better and still having pain Exam Data for Last 24 hours Vital signs and Labs for Last 24 Hours: Temp Pulse Resp BP Pulse Ox O2 Del Method 97.9 F 78 17 91/51 L 93 L Room Air 11/14/24 07:35 11/14/24 07:35 11/14/24 07:35 11/14/24 07:35 11/14/24 07:35 11/14/24 09:00 Laboratory Results - last 24 hr 11/14/24 08:00: WBC 9.0, RBC 3.61 L, Hgb 10.7 L, Hct 32.4 L, MCV 89.8, MCH 29.6, MCHC 33.0, RDW 14.2, Plt Count 305, MPV 9.1, Neut % (Auto) 64.0, Lymph % (Auto) 17.0, [place] % (Auto) 14.0 H, Eos % (Auto) 4.4, Baso % (Auto) 0.3, Neut # (Auto) 5.8, Lymph # (Auto) 1.5, [place] # (Auto) 1.3 H, Eos # (Auto) 0.4, Baso # (Auto) 0.0, Sodium 132 L, Potassium 3.2 L D, Chloride 104, Carbon Dioxide 24, Anion Gap 7.2, BUN < 2 L D, Creatinine 0.50 L D, Estimated Creat Clear 129, Estimated GFR 144, Est GFR ( Amer) 174 D, Glucose 94, Calcium 7.4 L I & O for Last 24 hours: Intake & Output 11/11/24 11/12/24 11/13/24 11/14/24 11:59 11:59 11:59 11:59 Intake Total 2903 / 2903 985 / 985 1360 / 1360 Output Total 2450 / 2450 1 / 0 / 0 Balance 453 / 453 984 / 984 1360 / 1360 Weight 218 lb 223 lb 3 oz 227 lb 1.6 oz 226 lb 3.2 oz Microbiology Reports for the Last 24 Hours: Microbiology 11/11/24 09:00 Urine,Catheterized Urine Culture - Final Constitutional Constitutional: no acute distress *Routine Respiratory Exam Respiratory: Absent respiratory distress *Routine Cardiovascular Exam Cardiovascular: Absent tachycardia *Routine Abdominal Exam Comments: Ileostomy pink/viable. Fluid and air within ileostomy bag. Midline incision healing without evidence of infection. Colostomy takedown site without erythema. 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
--- NOTE | 2024-11-14 10:44 | PC.NURSE ---
5.7 mg morphine cleared from wood inspector pump. MAC OPERATOR pump d/c. wasted additional medication in [facility].
[2024-11-14] MEDS: FLUTICASONE/SALMETEROL 250/50MCG DISKUS 1 PUFF IH ×2 (12:09→21:46)
[2024-11-14] MEDS: HYDROCODONE/APAP 5/325 MG TABLET 1 TAB PO ×2 (12:16→19:58)
[2024-11-14] MEDS: AMOXICILLIN/POT CLAVULAN 500MG TABLET 1 EACH PO ×2 (12:18→20:57)
--- NOTE | 2024-11-14 17:20 | PC.NURSE ---
ambulated in hallway and tolerated well. shower today. appetite is improving and she is tolerating food well. medicated for pain per mar with good effectiveness.
[2024-11-14] MEDS: SODIUM CHLORIDE 0.9% 10ML VIAL 10 ML IV (20:57)
[2024-11-14] MEDS: PANTOPRAZOLE 40MG VIAL 40 MG IV (20:57)
[2024-11-15] VITALS: BP 111/54; PULSE 84; RESP 16; TEMP 36.6; O2SAT 96
[2024-11-15] MEDS: HYDROCODONE/APAP 5/325 MG TABLET 1 TAB PO ×3 (01:00→08:55)
[2024-11-15 04:00] VITALS: BP 103/49; PULSE 77; RESP 16; TEMP 36.5; O2SAT 96; BMI 40.8
--- NOTE | 2024-11-15 04:58 | PC.NURSE ---
29 yo fe pt is A/O X 4. She is now independent with ambulation and repositioning in the bed. Encouraged pt early in shift to care for ileostomy on her own with nurse available to assist if needed. Pt reports that she emptied the bag in the night independently. She has ambulated in the hallway X 2 this shift. Pt continued to report pain, usually rated at 6 and has been medicated X 3 with [employer], which pt reports is effective. Pt tolerating diet. Dressing to abdominal incision C/D/I. Pt has been afebrile and VS WNL for pt.
--- NOTE | 2024-11-15 07:38 | EXP.SURG.PN ---
Subjective Patient reports: feels better and tolerating a regular diet Exam Data for Last 24 hours Vital signs and Labs for Last 24 Hours: Temp Pulse Resp BP Pulse Ox O2 Del Method 97.7 F 77 16 103/49 L 96 Room Air 11/15/24 04:00 11/15/24 04:00 11/15/24 04:00 11/15/24 04:00 11/15/24 04:00 11/15/24 06:49 Laboratory Results - last 24 hr 11/14/24 08:00: WBC 9.0, RBC 3.61 L, Hgb 10.7 L, Hct 32.4 L, MCV 89.8, MCH 29.6, MCHC 33.0, RDW 14.2, Plt Count 305, MPV 9.1, Neut % (Auto) 64.0, Lymph % (Auto) 17.0, [place] % (Auto) 14.0 H, Eos % (Auto) 4.4, Baso % (Auto) 0.3, Neut # (Auto) 5.8, Lymph # (Auto) 1.5, [place] # (Auto) 1.3 H, Eos # (Auto) 0.4, Baso # (Auto) 0.0, Sodium 132 L, Potassium 3.2 L D, Chloride 104, Carbon Dioxide 24, Anion Gap 7.2, BUN < 2 L D, Creatinine 0.50 L D, Estimated Creat Clear 129, Estimated GFR 144, Est GFR ( Amer) 174 D, Glucose 94, Calcium 7.4 L I & O for Last 24 hours: Intake & Output 11/12/24 11/13/24 11/14/24 11/15/24 11:59 11:59 11:59 11:59 Intake Total 2903 / 2903 985 / 985 1840 / 1840 720 / 720 Output Total 2450 / 2450 1 / 1 0 / 0 0 / 0 Balance 453 / 453 984 / 984 1840 / 1840 720 / 720 Weight 223 lb 3 oz 227 lb 1.6 oz 226 lb 3.2 oz 230 lb 3.2 oz Microbiology Reports for the Last 24 Hours: Microbiology 11/11/24 09:00 Urine,Catheterized Urine Culture - Final Constitutional Constitutional: no acute distress *Routine Respiratory Exam Respiratory: Absent respiratory distress *Routine Cardiovascular Exam Cardiovascular: Absent tachycardia *Routine Abdominal Exam Comments: Ileostomy pink/viable. Fluid and air within ileostomy bag. Midline incision healing without evidence of infection. Colostomy takedown site without erythema. 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
--- NOTE | 2024-11-15 07:39 | P.DS_ITS ---
General Admission date:: 11/11/24 Discharge date: 11/15/24 HPI HPI HPI: Forwarded from office visit dated October 13, 2024: The patient returns for additional follow-up status post sigmoid resection with end colostomy for severe diverticulitis on April 15, 2024. She is without complaint. She wishes to undergo ostomy takedown. Hospital Course Hospital Course Hospital Course: The patient underwent colostomy takedown with diverting loop ileostomy. Please see operative report for detail. Postoperatively, she progressed well. IV CAFETERIA OR LUNCHROOM CHECKER was utilized for initial pain management. She was maintained on antibiotics secondary to intraoperative soilage. Her home medications were restarted promptly. She remained afebrile with stable normal vital signs. She had evidence of bowel function via increasing ostomy output during postoperative day 3. Her diet was advanced and she was deemed appropriate for discharge on postoperative day 4. Condition at discharge: At the time of discharge patient was afebrile with stable normal vital signs. She was ambulating without difficulty and tolerating a regular diet. Exam Data for Last 24 hours Vital signs and Labs for Last 24 Hours: Temp Pulse Resp BP Pulse Ox O2 Del Method 97.7 F 77 16 103/49 L 96 Room Air 11/15/24 04:00 11/15/24 04:00 11/15/24 04:00 11/15/24 04:00 11/15/24 04:00 11/15/24 06:49 Laboratory Results - last 24 hr 11/14/24 08:00: WBC 9.0, RBC 3.61 L, Hgb 10.7 L, Hct 32.4 L, MCV 89.8, MCH 29.6, MCHC 33.0, RDW 14.2, Plt Count 305, MPV 9.1, Neut % (Auto) 64.0, Lymph % (Auto) 17.0, [place] % (Auto) 14.0 H, Eos % (Auto) 4.4, Baso % (Auto) 0.3, Neut # (Auto) 5.8, Lymph # (Auto) 1.5, [place] # (Auto) 1.3 H, Eos # (Auto) 0.4, Baso # (Auto) 0.0, Sodium 132 L, Potassium 3.2 L D, Chloride 104, Carbon Dioxide 24, Anion Gap 7.2, BUN < 2 L D, Creatinine 0.50 L D, Estimated Creat Clear 129, Estimated GFR 144, Est GFR ( Amer) 174 D, Glucose 94, Calcium 7.4 L I & O for Last 24 hours: Intake & Output 11/12/24 11/13/24 11/14/24 11/15/24 11:59 11:59 11:59 11:59 Intake Total 2903 / 2903 985 / 985 1840 / 1840 720 / 720 Output Total 2450 / 2450 1 / 1 0 / 0 0 / 0 Balance 453 / 453 984 / 984 1840 / 1840 720 / 720 Weight 223 lb 3 oz 227 lb 1.6 oz 226 lb 3.2 oz 230 lb 3.2 oz Microbiology Reports for the Last 24 Hours: Microbiology 11/11/24 09:00 Urine,Catheterized Urine Culture - Final Constitutional Constitutional: no acute distress *Routine HEENT Exam Head: Present normocephalic Eye: Present EOMI ENT: Present mucous membranes moist *Routine Neck Exam Neck: Present full ROM Routine Chest/Breast/Axilla Exam Chest wall: Absent tenderness *Routine Respiratory Exam Respiratory: Absent respiratory distress *Routine Cardiovascular Exam Cardiovascular: Absent tachycardia *Routine Abdominal Exam Abdominal: Present soft Comments: Ileostomy pink/viable. Midline incision healing without evidence of infection. *Routine Rectal Exam Patient deferred: visual exam and digital exam *Routine Exam Patient deferred: external exam, groin exam and perineal exam *Routine Extremities Exam Extremities: Present full ROM Routine Back/Spine/Pelvis Exam Back/Spine: Present full ROM *Routine Skin Exam Skin: Absent erythema *Routine Neurological Exam Neurological: Present alert Routine Psychiatric Exam Psychiatric: Present normal affect Results Data Completed and Pending Labs on day of discharge: Labs from last 24 hours 11/14/24 08:00 WBC 9.0 RBC 3.61 L Hgb 10.7 L Hct 32.4 L MCV 89.8 MCH 29.6 MCHC 33.0 RDW 14.2 Plt Count 305 MPV 9.1 Neut % (Auto) 64.0 Lymph % (Auto) 17.0 [place] % (Auto) 14.0 H Eos % (Auto) 4.4 Baso % (Auto) 0.3 Neut # (Auto) 5.8 Lymph # (Auto) 1.5 [place] # (Auto) 1.3 H Eos # (Auto) 0.4 Baso # (Auto) 0.0 Sodium 132 L Potassium 3.2 L D Chloride 104 Carbon Dioxide 24 Anion Gap 7.2 BUN < 2 L D Creatinine 0.50 L D Estimated Creat Clear 129 Estimated GFR 144 Est GFR ( Amer) 174 D Glucose 94 Calcium 7.4 L DS: Diagnosis Discharge Diagnosis (1) Status post colostomy: Status: Acute Code(s): Z93.3 - Colostomy status Problem details: Status post takedown with diverting loop ileostomy on November 11, 2024 (2) Diverticulitis: Status: Acute Code(s): K57.92 - Diverticulitis of intestine, part unspecified, without perforation or abscess without bleeding (3) Ileostomy in place: Status: Acute Code(s): Z93.2 - Ileostomy status (4) COPD (chronic obstructive pulmonary disease): Status: Acute Code(s): J44.9 - Chronic obstructive pulmonary disease, unspecified Qualifiers: COPD type: unspecified COPD Qualified Code(s): J44.9 - Chronic obstructive pulmonary disease, unspecified (5) 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: Status: Acute Code(s): E66.813 - Obesity, class 3; E66.2 - Morbid (severe) obesity with alveolar hypoventilation; Z68.42 - Body mass index [BMI] 45.0-49.9, adult Qualifiers: Serious obesity comorbidity presence: with serious comorbidity Qualified Code(s): E66.813 - Obesity, class 3; E66.2 - Morbid (severe) obesity with alveolar hypoventilation; Z68.42 - Body mass index [BMI] 45.0-49.9, adult (6) Rheumatoid arthritis: Status: Acute Code(s): M06.9 - Rheumatoid arthritis, unspecified Qualifiers: Rheumatoid arthritis location: unspecified site Rheumatoid factor presence: unspecified presence Qualified Code(s): M06.9 - Rheumatoid arthritis, unspecified (7) Lupus: Status: Chronic Code(s): M32.9 - Systemic lupus erythematosus, unspecified Meds Home Medications and Allergies Home Medications ?Medication ?Instructions ?Recorded ?Confirmed ?Type etonogestrel 68 mg subdermal 68 mg subdermal DIRECTED 04/24/23 11/11/24 History implant (Nexplanon) albuterol sulfate 90 mcg/actuation 2 puff inhalation Q6HP PRN 05/07/24 11/11/24 Rx aerosol inhaler shortness of breath or wheezing 30 days #6.7 grams budesonide-formoterol HFA 80 1 inh inhalation BID #10.2 grams 05/07/24 11/11/24 Rx mcg-4.5 mcg/actuation aerosol inhaler (Symbicort) hydroxychloroquine 200 mg tablet 200 mg PO DAILY lupus 08/30/24 11/11/24 History leflunomide 10 mg tablet 10 mg PO DAILY lupus 10/13/24 11/11/24 History diclofenac sodium 50 mg 50 mg PO BIDP PRN arthritic pain 11/11/24 11/11/24 History tablet,delayed release amoxicillin 500 mg-potassium 1 tab PO TID 5 days #15 tabs 11/15/24 Rx clavulanate 125 mg tablet (Augmentin) hydrocodone 5 mg-acetaminophen 325 1 tab PO Q6H PRN post-op pain #27 11/15/24 Rx mg tablet tabs New Prescriptions to Start Prescriptions: amoxicillin-pot clavulanate [Augmentin] Rod Nieves hydrocodone-acetaminophen Rod Nieves Allergies Allergy/AdvReac Type Severity Reaction Status Date / Time shellfish derived Allergy Hives Verified 11/11/24 07:49 Discharge Plan Disposition Patient Disposition: Home, Self-Care Discharge Order Discharge Orders: Discharge Order (Routine); Ordered 11/15/24 Ordered By: Rod Nieves Follow up Plan Follow up with: Rod Nieves MD [Staff Physician] - 11/17/24 Prescriptions/Medication Reconciliation: New hydrocodone-acetaminophen 5-325 mg tablet 1 tab PO Q6H PRN (Reason: post-op pain) Qty: 27 0RF amoxicillin-pot clavulanate [Augmentin] 500-125 mg tablet 1 tab PO TID 5 Days Qty: 15 0RF Continued Nexplanon 68 mg implant 68 mg subdermal DIRECTED leflunomide 10 mg tablet 10 mg PO DAILY Rx Instructions: ON HOLD PER PT UNTIL FURTHER NOTICE hydroxychloroquine 200 mg tablet 200 mg PO DAILY Patient Comments: TAKE 1 TABLET 1 TIME EACH DAY albuterol sulfate 90 mcg/actuation HFA aerosol inhaler 2 puff inhalation Q6HP PRN (Reason: shortness of breath or wheezing) 30 Days Qty: 6.7 2RF budesonide-formoterol [Symbicort] 80-4.5 mcg/actuation HFA aerosol inhaler 1 inh inhalation BID Qty: 10.2 2RF diclofenac sodium 50 mg tablet,delayed release (DR/EC) 50 mg PO BIDP PRN (Reason: arthritic pain) Problem Reconciliation Problems Reviewed?: Yes Patient Discharge Instructions ACTIVITY: Ambulate as tolerated and No heavy lifting DIET: advance to your usual diet Patient Instructions: How to Care for Your Colostomy or Ileostomy, DI for Surgical Site Infection, Catheter-Associated Urinary Tract Infection Print Language: Barbadian Providers Primary Care Provider: Javy Linton Admit Provider: Parviz Saravia Attending Provider: Rod Nieves
[2024-11-15 08:00] VITALS: BP 111/64; PULSE 71; RESP 20; TEMP 36.7; O2SAT 97
[2024-11-15] MEDS: HYDROXYCHLOROQUINE SULFATE 200MG TABLET 200 MG PO (08:20)
[2024-11-15] MEDS: AMOXICILLIN/POT CLAVULAN 500MG TABLET 1 EACH PO (08:20)
--- NOTE | 2024-11-15 08:25 | HMH.PHAINT1 ---
Pharmacy Intervention Comments: COUNSELED ON NEW MEDICATIONS. PATIENT VERBALIZED UNDERSTANDING.
--- NOTE | 2024-11-15 11:24 | PC.NURSE ---
dressing and ostomy changed before discharge per pt request.
--- NOTE | 2024-11-17 11:22 | SW/DCPLANNER ---
Spoke with patient on the phone. Patient stated that she is hanging in there. Patient stated that she is aware of her upcoming appointments. Patient stated that clinic pharmacy brought her new medicine to her bedside the day of her discharge. Patient stated that she never was given her inhaler back when she was discharged and that she will come and see if they still have it on the second floor tomorrow when she comes for a follow up with Dr. Nieves. Patient stated that she has no concerns or questions at this time. Jairon Degroot
== END 2024-11-15 11:25 | disposition home or self-care (01) | DRG 330 ==
LOC: 2ND 14:25
PROVIDERS: Admitting Provider Internal Medicine Adolescent Medicine; PCP Family Medicine; Visit Provider Surgery
PROC: 0DSN0ZZ Reposition Sigmoid Colon, Open Approach (ICD-10-PCS; CPT 44620; principal; 2024-11-11 08:20)
DX: Z43.3 Encounter for attention to colostomy (principal); E66.2 Morbid (severe) obesity with alveolar hypoventilation; Z68.41 Body mass index [BMI] 40.0-44.9, adult; K43.5 Parastomal hernia without obstruction or gangrene; K57.30 Diverticulosis of large intestine without perforation or abscess without bleeding; J44.9 Chronic obstructive pulmonary disease, unspecified; M06.9 Rheumatoid arthritis, unspecified; M32.9 Systemic lupus erythematosus, unspecified; F17.210 Nicotine dependence, cigarettes, uncomplicated; Z79.899 Other long term (current) drug therapy
CPT/HCPCS: 36415; 80048; 81001; 85025; 87086; 94640; 96372; 96374; J3490; J0690; J1100; J1650; J2250; J2270; J2405; J2543; J2550; J3010; J7030; J7120

== ENCOUNTER 2025-01-15 19:10 | Emergency (ER) | payer MEDICAID, SELFPAY ==
[2025-01-15 19:31] VITALS: BP 150/85; PULSE 81; PULSE 86; RESP 17; RESP 20; TEMP 36.7; O2SAT 97; O2SAT 98; BMI 37.2
--- NOTE | 2025-01-15 19:38 | XR_ITS ---
PROCEDURE INFORMATION: Exam: XR Right Wrist Exam date and time: 01/15/2025 7:42 PM Age: 29 years old Clinical indication: Injury or trauma; Fall; Blunt trauma (contusions or hematomas); Wrist; Right; Additional info: [place] TECHNIQUE: Imaging protocol: Radiologic exam of the right wrist. Views: 3 or more views. COMPARISON: CR Hand R 01/15/2025 7:41 PM FINDINGS: Bones/joints: Normal. Soft tissues: Normal. IMPRESSION: No acute findings.
--- NOTE | 2025-01-15 19:38 | XR_ITS ---
PROCEDURE INFORMATION: Exam: XR Right Forearm Exam date and time: 01/15/2025 7:44 PM Age: 29 years old Clinical indication: Pain; Lower or forearm; Right; Additional info: Fall TECHNIQUE: Imaging protocol: Radiologic exam of the right forearm. Views: 2 views. COMPARISON: CR Wrist R 01/15/2025 7:42 PM FINDINGS: Bones/joints: Normal. Soft tissues: Normal. IMPRESSION: No acute findings.
--- NOTE | 2025-01-15 19:38 | XR_ITS ---
PROCEDURE INFORMATION: Exam: XR Right Shoulder Exam date and time: 01/15/2025 7:39 PM Age: 29 years old Clinical indication: Injury or trauma; Fall; Blunt trauma (contusions or hematomas); Shoulder; Right; Additional info: Fall landed on R shoulder TECHNIQUE: Imaging protocol: Radiologic exam of the right shoulder. Views: 2 or more views. COMPARISON: CR XR CHEST PORTABLE 10/24/2024 10:02 PM FINDINGS: Bones/joints: Chronic, nonunited right clavicular shaft fracture versus anatomic variant. Stable alignment. No acute fracture. Soft tissues: Normal. IMPRESSION: 1. No acute findings. 2. 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
--- NOTE | 2025-01-15 19:38 | XR_ITS ---
PROCEDURE INFORMATION: Exam: XR Right Hand Exam date and time: 01/15/2025 7:41 PM Age: 29 years old Clinical indication: Pain; Hand; Right; Additional info: [place] TECHNIQUE: Imaging protocol: Radiologic exam of the right hand. Views: 1 or 2 views. COMPARISON: CR Wrist R 01/15/2025 7:42 PM FINDINGS: Bones/joints: Normal. Soft tissues: Normal. IMPRESSION: No acute findings.
--- NOTE | 2025-01-15 19:40 | HMH.EDGENADL ---
Discharge Plan Disposition Patient Disposition: Left Against Medical Advice Prescriptions Prescriptions: New acetaminophen [Tylenol] 325 mg tablet 325 mg PO Q6H PRN (Reason: fever or pain) Qty: 7 0RF No Action Nexplanon 68 mg implant 68 mg subdermal DIRECTED leflunomide 10 mg tablet 10 mg PO DAILY Rx Instructions: ON HOLD PER PT UNTIL FURTHER NOTICE hydroxychloroquine 200 mg tablet 200 mg PO DAILY Patient Comments: TAKE 1 TABLET 1 TIME EACH DAY albuterol sulfate 90 mcg/actuation HFA aerosol inhaler 2 puff inhalation Q6HP PRN (Reason: shortness of breath or wheezing) 30 Days Qty: 6.7 2RF budesonide-formoterol [Symbicort] 80-4.5 mcg/actuation HFA aerosol inhaler 1 inh inhalation BID Qty: 10.2 2RF ibuprofen 600 mg tablet 600 mg PO Q6H PRN (Reason: pain) Qty: 30 0RF diclofenac sodium 50 mg tablet,delayed release (DR/EC) 50 mg PO BIDP PRN (Reason: arthritic pain) Referrals Follow up/Referrals: Javy Linton MD [Primary Care Provider] - See instructions Clinical Impressions Clinical Impression: Left against medical advice Print Language Print Language: Estonian Discharge ED Provider: Arjun Sequeira General Adult HPI <Jerilyn Bustamante APRN - Last Filed: 01/15/25 21:18> General Chief complaint: Extremity Injury, Upper Stated complaint: AO 01/15/25 1810 injury right arm Time Seen by Provider: 01/15/25 19:23 Mode of Arrival: Ambulatory Source of Information: Patient Description of Symptoms (Recalled from ER Triage Doc. by RN): PT C/O R ARM PAIN S/P MECHANICAL FALL X1 HOUR AGO. REPORTS PAIN WORSENS WITH MOVEMET OR LIFTING. NO OBVIOUS DEFORMITY. DENIES HITTING HEAD, -LOC, -BLOOD THINNERS History of Present Illness HPI narrative: patient is a 29-year-old female PMHx COPD, obesity, RA, lupus, colostomy who presents to the ED after a fall down 3 steps. Patient states she slipped, lost her balance and landed on her right arm, states she tried to catch herself however injured her right hand right upper arm and right shoulder. Related Data Home Medications ?Medication ?Instructions ?Recorded ?Confirmed etonogestrel 68 mg subdermal 68 mg subdermal DIRECTED 04/24/23 12/29/24 implant (Nexplanon) hydroxychloroquine 200 mg tablet 200 mg PO DAILY lupus 08/30/24 12/29/24 leflunomide 10 mg tablet 10 mg PO DAILY lupus 10/13/24 12/29/24 diclofenac sodium 50 mg 50 mg PO BIDP PRN arthritic pain 11/11/24 12/29/24 tablet,delayed release Previous Rx's ?Medication ?Instructions ?Recorded albuterol sulfate 90 mcg/actuation 2 puff inhalation Q6HP PRN 05/07/24 aerosol inhaler shortness of breath or wheezing 30 days #6.7 grams budesonide-formoterol HFA 80 1 inh inhalation BID #10.2 grams 05/07/24 mcg-4.5 mcg/actuation aerosol inhaler (Symbicort) ibuprofen 600 mg tablet 600 mg PO Q6H PRN pain #30 tabs 11/17/24 acetaminophen 325 mg tablet 325 mg PO Q6H PRN fever or pain #7 01/15/25 (Tylenol) tabs Allergies Allergy/AdvReac Type Severity Reaction Status Date / Time shellfish derived Allergy Hives Verified 12/29/24 10:31 [facility] <Jerilyn Bustamante, HEARING THERAPY DIRECTOR - Last Filed: 01/15/25 21:18> [facility] Disclaimer: The information contained in this section may have been updated after the patient was seen, as this information can be updated by other users. Medical History Diverticulitis Lupus Rheumatoid arthritis Surgical History History of colectomy History of oral surgery Family History Mother Tumor Father Diabetes Grandfather Diabetes Other Fibromatosis Social History Smoking Status: Current every day smoker tobacco type: cigarettes second hand exposure: Yes alcohol intake: current alcohol intake frequency: holidays/special occasions only substance use type: denies use current occupational status: employed Travel in the last 8 weeks: None household members: family housing: house marital status: Have you lived/traveled outside [place] in past 30 days?: No Contact w/someone who lives/traveled outside US past 30 days?: No Exposure to someone with infectious disease in past 14 days?: No Do you have a fever (greater than 100.4 F or 38 C)?: No Have you tested positive for COVID-19: No Exposed to someone with COVID-19 in past 14 days?: No Do you have a sore throat?: No Do you have a cough?: No Do you have any weakness?: No Do you have any diarrhea?: No Are you experiencing any unusual bleeding?: No Do you have any muscle aches/pain?: No Do you have any abdominal pain?: No Are you experiencing loss of taste or smell?: No Other Medical History Have you received the Flu Vaccine for this season: No Have you received the Pneumonia Vaccine: No <Jerilyn Bustamante APRN - Last Filed: 01/15/25 21:18> ROS Obtained: Yes Systems reviewed as appropriate & no additional complaints except as documented Physical Exam <Jerilyn Bustamante APRN - Last Filed: 01/15/25 21:18> General General appearance: alert and in no apparent distress Head Head exam: atraumatic and normocephalic Eye Eye exam: Present normal appearance and PERRL ENT ENT exam: Present normal exam Neck Neck exam: Present normal inspection Chest Chest inspection: Present normal inspection and symmetric chest wall rise; Absent tenderness Respiratory Respiratory exam: Present normal lung sounds bilaterally Cardiovascular Cardiovascular exam: Present regular rate Abdominal Exam Abdominal exam: Present soft and normal bowel sounds; Absent tenderness Extremities Exam Extremities exam: Present full ROM and other Back Exam Back exam: Present normal inspection and full ROM Neurological Exam Neurological exam: Present alert and oriented X3 Psychiatric Psychiatric exam: Present normal affect and normal mood Skin Skin exam: Present warm and dry Medical Decision Making <Jerilyn Bustamante APRN - Last Filed: 01/15/25 21:18> Medical Records Screening: Per USPSTF and CDC recommendations, given the prevalence of disease in our region, it is our hospital?s policy to screen for HIV and viral Hepatitis for all patients aged 18 and over and those with ongoing risk factors. [place] Inquiry Pt receiving controlled substance: No [place] was queried for this patient: No Vital Signs: 01/15/25 19:31 01/15/25 19:31 01/15/25 21:21 Temperature 98.0 F 97.9 F Temperature Source Temporal Artery Scan Pulse Rate 86 80 Pulse Rate [Apical] 81 Respiratory Rate 20 17 20 Blood Pressure 150/85 H 120/83 Blood Pressure [Right Arm] 150/85 H Blood Pressure Mean [Right Arm] 106 02 Sat by Pulse Oximetry 97 98 Oxygen Delivery Method Room Air Room Air Room Air 01/15/25 21:21 Temperature 97.9 F Temperature Source Pulse Rate 80 Pulse Rate [Apical] Respiratory Rate 20 Blood Pressure 120/83 Blood Pressure [Right Arm] Blood Pressure Mean [Right Arm] 02 Sat by Pulse Oximetry Oxygen Delivery Method Room Air Orders (Tests/Meds): ED MEDICATIONS Discontinued Medications Generic Name Dose Route Start Last Admin Trade Name Freq PRN Reason Stop Dose Admin Ibuprofen 600 mg 01/15/25 19:42 01/15/25 19:53 Ibuprofen 200mg/10ml Susp Udc PO 01/15/25 19:43 600 mg ONCE ONE Administration ORDERS Category Date Time Status Forearm XR right 2 views [XR forearm RT 2V] Stat Exams 01/15/25 19:38 Completed Hand XR right 2 views [XR hand RT 2V] Stat Exams 01/15/25 19:38 Completed Shoulder XR right miminum 2 views [XR shoulder RT min Exams 01/15/25 19:38 Completed 2V] Stat Wrist XR right minimum 3 views [XR wrist RT min 3V] Exams 01/15/25 19:38 Completed Stat Medical Decision Narrative: In summary, patient is a 29-year-old female PMHx COPD, obesity, RA, lupus, colostomy who presents to the ED after a fall down 3 steps. Patient states she slipped, lost her balance and landed on her right arm, states she tried to catch herself however injured her right hand right upper arm and right shoulder. Patient has full ROM of right upper extremity. Pulses intact. Sensation intact. Denies any other injuries at this time. Denies hitting her head and denies loss of consciousness. Patient states that she took acetaminophen prior to arrival without any relief. Differential diagnosis includes scaphoid injury, rotator cuff injury, fracture, among others. Discussed with patient that we will obtain imaging and administer Motrin for pain. Prior to imaging results, patient decided she wanted to leave AGAINST MEDICAL ADVICE that she did not want to wait on the report. Discussed the risk of leaving AGAINST MEDICAL ADVICE patient verbalized understanding and signed the AMA form. She was alert, oriented and hemodynamically stable, ambulatory without difficulty from the ED. <Arjun Sequeira MD - Last Filed: 01/15/25 22:32> Vital Signs: 01/15/25 19:31 01/15/25 19:31 01/15/25 21:21 Temperature 98.0 F 97.9 F Temperature Source Temporal Artery Scan Pulse Rate 86 80 Pulse Rate [Apical] 81 Respiratory Rate 20 17 20 Blood Pressure 150/85 H 120/83 Blood Pressure [Right Arm] 150/85 H Blood Pressure Mean [Right Arm] 106 02 Sat by Pulse Oximetry 97 98 Oxygen Delivery Method Room Air Room Air Room Air 01/15/25 21:21 Temperature 97.9 F Temperature Source Pulse Rate 80 Pulse Rate [Apical] Respiratory Rate 20 Blood Pressure 120/83 Blood Pressure [Right Arm] Blood Pressure Mean [Right Arm] 02 Sat by Pulse Oximetry Oxygen Delivery Method Room Air Orders (Tests/Meds): ED MEDICATIONS Discontinued Medications Generic Name Dose Route Start Last Admin Trade Name Amaya PRN Reason Stop Dose Admin Ibuprofen 600 mg 01/15/25 19:42 01/15/25 19:53 Ibuprofen 200mg/10ml Susp Udc PO 01/15/25 19:43 600 mg ONCE ONE Administration ORDERS Category Date Time Status Forearm XR right 2 views [XR forearm RT 2V] Stat Exams 01/15/25 19:38 Completed Hand XR right 2 views [XR hand RT 2V] Stat Exams 01/15/25 19:38 Completed Shoulder XR right miminum 2 views [XR shoulder RT min Exams 01/15/25 19:38 Completed 2V] Stat Wrist XR right minimum 3 views [XR wrist RT min 3V] Exams 01/15/25 19:38 Completed Stat Medical Decision Narrative: In summary, patient is a 29-year-old female PMHx COPD, obesity, RA, lupus, colostomy who presents to the ED after a fall down 3 steps. Patient states she slipped, lost her balance and landed on her right arm, states she tried to catch herself however injured her right hand right upper arm and right shoulder. Patient has full ROM of right upper extremity. Pulses intact. Sensation intact. Denies any other injuries at this time. Denies hitting her head and denies loss of consciousness. Patient states that she took acetaminophen prior to arrival without any relief. Differential diagnosis includes scaphoid injury, rotator cuff injury, fracture, among others. Discussed with patient that we will obtain imaging and administer Motrin for pain. Prior to imaging results, patient decided she wanted to leave AGAINST MEDICAL ADVICE that she did not want to wait on the report. Discussed the risk of leaving AGAINST MEDICAL ADVICE patient verbalized understanding and signed the AMA form. She was alert, oriented and hemodynamically stable, ambulatory without difficulty from the ED. I was consulted by the KAYLEIGH, and we discussed the complexity of the problems being addressed. I approved the treatment and management plan for this patient's care in the Emergency Department, thus performing a substantive portion of the medical decision making. Arjun Sequeira MD Critical Care <Jerilyn Bustamante APRN - Last Filed: 01/15/25 21:18> Critical Care Time Critical Care Time: No
[2025-01-15] MEDS: IBUPROFEN 200MG/10ML SUSP UDC 600 MG PO (19:53)
--- NOTE | 2025-01-15 20:30 | PC.NURSE ---
Pt asked for an update. I let her know we are waiting on xray read. Radiology states it is being read now.
--- NOTE | 2025-01-15 21:10 | PC.NURSE ---
pt asking to leave. States she don't want to wait anymore . States she will come back later if I need to . I let Shereen Bustamante ILEANA know of the pt's concerns and states she will need to sign out AMA as the xray reads are still not back. Pt signed AMA form. She also asked for a work excuse. I let pt know if she is leaving ama, I will not be able to give her a work note. States her understanding.
[2025-01-15 21:21] VITALS: BP 120/83; PULSE 80; RESP 20; TEMP 36.6; O2SAT 96
== END 2025-01-15 21:22 | disposition left against medical advice (07) ==
PROVIDERS: Emergency Provider Emergency Medicine; PCP Family Medicine
DX: M79.601 Pain in right arm (principal); M25.511 Pain in right shoulder; M79.641 Pain in right hand; F17.210 Nicotine dependence, cigarettes, uncomplicated; Z53.29 Procedure and treatment not carried out because of patient's decision for other reasons; W10.9XXA Fall (on) (from) unspecified stairs and steps, initial encounter; Y93.9 Activity, unspecified; Y92.9 Unspecified place or not applicable
CPT/HCPCS: 73030; 73090; 73110; 73120; 99283

== ENCOUNTER 2025-03-04 09:48 | Outpatient (CLI) | payer OTHER, SELFPAY ==
--- NOTE | 2025-03-04 10:04 | FL_ITS ---
FINAL REPORT CLINICAL HISTORY: Check for leakage for colostomy take down GASTROGRAPHIN USED FOR ENEMA FT: 1.24 142.52 MGY FINDINGS: GASTROGRAFIN ENEMA HISTORY: Evaluate for leak for colostomy takedown. PROCEDURE: Single-contrast Gastrografin was introduced by gravity drip. 19 spot and overhead films were obtained. Fluoro time: 1 minute 24 seconds Radiation exposure in Reference air Kerma:142.52 mGy. FINDINGS: Preliminary straw hat presser film demonstrates right side abdominal ostomy. There are is minimal diverticular change of the distal colon. No colonic stricture is identified. No extravasation of contrast was demonstrated during the exam. IMPRESSION: No colonic stricture or leak identified. Minimal diverticulosis. Reviewed, Interpreted and Dictated by Darvin Cunningham MD Transcribed by KATLYN Katz Authenticated and [facility]
[2025-03-04] MEDS: DIATRIZOATE MEGLUMINE(GASTROGRAFIN) 66%-10% 120ML 120 ML RC ×3 (11:05)
== END 2025-03-04 23:59 | disposition home or self-care (01) ==
LOC: RAD 09:49
PROVIDERS: PCP Family Medicine; Visit Provider Surgery
DX: K57.30 Diverticulosis of large intestine without perforation or abscess without bleeding (principal); Z48.815 Encounter for surgical aftercare following surgery on the digestive system
CPT/HCPCS: 74270; Q9963

== ENCOUNTER 2025-03-30 09:30 | Outpatient (CLI) | payer MEDICAID, SELFPAY ==
[2025-03-30 10:02] VITALS: BMI 38.9
[2025-03-30 10:34] LABS: Chloride 108 mmol/L (98-107); Potassium 4.7 mmoL/L (3.5-5.1); Sodium 140 mmol/L (136-145)
[2025-03-30 10:37] LABS: Blood Urea Nitrogen 12 mg/dl (7-17); Creatinine Clearance Estimated 183 mL/min (50-200); Estimated Glomerular Filt Rate 98 ml/min (>60); GFR (African American) 118 ML/MIN (>60)
[2025-03-30 10:38] LABS: Anion Gap 9.7 mEq/L (5-15); Calcium 8.8 mg/dl (8.4-10.2); Carbon Dioxide 27 mmol/L (22.0-30.0); Glucose 97 mg/dl (74-100)
[2025-03-30 10:42] LABS: Basophils # 0.1 K/mm3 (0-0.2); Basophils % 1.1 % (0.1-2.0); Eosinophils # 0.3 Kmm3 (0.0-0.4); Hematocrit 43.5 % (37.0-47.0); Hemoglobin 14.5 g/dL (12.2-16.2); Immature Granulocytes # 0.02 10^3uL; Immature Granulocytes % 0.2 %; Lymphocytes # 1.4 K/mm3 (0.7-4.5); Lymphocytes % 15.8 % (10-50); Mean Corpuscular HGB Conc 33.3 g/dL (31.8-35.4); Mean Corpuscular Hemoglobin 28.7 pg (27.0-31.2); Mean Corpuscular Volume 86.1 fl (81-99); Monocytes # 0.9 K/mm3 (0.1-1.0); Monocytes % 10.7 % (1.7-9.3); Neutrophils # 5.8 K/mm3 (1.8-7.8); Neutrophils % 68.2 % (37.0-80.0); Nucleated Red Blood Cells # 0 10^3/uL; Nucleated Red Blood Cells % 0 %; Platelet Count 437 K/mm3 (142-424); Red Blood Count 5.05 M/mm3 (4.20-5.40); Red Cell Distribution Width 14.5 % (11.5-17.5); Red Cell Distribution Width-SD 45.3 fL; White Blood Count 8.6 K/mm3 (4.8-10.8)
[2025-03-30 11:02] LABS: HCG Qualitative, Serum Negative (Negative)
== END 2025-03-30 23:59 | disposition home or self-care (01) ==
LOC: PREOP 09:33
PROVIDERS: PCP Family Medicine; Visit Provider Surgery
DX: Z01.812 Encounter for preprocedural laboratory examination (principal)
CPT/HCPCS: 80048; 84703; 85025

== ENCOUNTER 2025-04-07 06:51 | Inpatient (IN) | payer MEDICAID, SELFPAY ==
[2025-03-30 10:49] VITALS: BMI 38.9
[2025-04-07] VITALS (21 sets, daily range): BP systolic 108–159; BP diastolic 63–86; PULSE 72–93; RESP 14–20; TEMP 36.1–43; O2SAT 93–100
[2025-04-07 06:24] LABS: Urine Pregnancy, HCG Qual. Negative (Negative)
[2025-04-07] MEDS: 0.9 % SODIUM CHLORIDE 1000ML 1,000 ML 25 ML IV (06:24)
--- NOTE | 2025-04-07 06:53 | EXP.GEN.HP ---
HPI HPI HPI: The patient presents for ileostomy takedown. Forwarded from office visit dated March 09, 2025: The patient returns for follow-up status post Gastrografin enema. She is without new complaint. She states that she is ready for ostomy reversal if possible . Gastrografin enema reviewed. Preliminary report shows minimal diverticular change in the distal colon. No colonic stricture noted. No extravasation of contrast consistent with leak was noted. Most recent laboratory report dated November 14, 2024 reviewed. WBC 9.0, hemoglobin 10.7, potassium 3.2, and creatinine 0.5. [facility] Disclaimer: The information contained in this section may have been updated after the patient was seen, as this information can be updated by other users. Medical History Diverticulitis Lupus Rheumatoid arthritis Surgical History History of colectomy History of oral surgery Family History Mother Tumor Father Diabetes Grandfather Diabetes Other Fibromatosis Social History Smoking Status: Current every day smoker tobacco type: cigarettes second hand exposure: Yes alcohol intake: current alcohol intake frequency: holidays/special occasions only substance use type: denies use current occupational status: employed Travel in the last 8 weeks?: None household members: family housing: house marital status: Have you lived/traveled outside US in past 30 days?: No Contact w/someone who lives/traveled outside US past 30 days?: No Exposure to someone with infectious disease in past 14 days?: No Do you have a fever (greater than 100.4 F or 38 C)?: No Have you tested positive for COVID-19?: No Exposed to someone with COVID-19 in past 14 days?: No Do you have a sore throat?: No Do you have a cough?: No Do you have any weakness?: No Do you have any diarrhea?: No Are you experiencing any unusual bleeding?: No Do you have any muscle aches/pain?: No Do you have any abdominal pain?: No Are you experiencing loss of taste or smell?: No Other Medical History Have you received the Flu Vaccine for this season: No Have you received the Pneumonia Vaccine: No Review of Systems Review of Systems Review of systems:: pertinent systems reviewed and negative unless documented below Meds Home Medications and Allergies Home Medications ?Medication ?Instructions ?Recorded ?Confirmed ?Type etonogestrel 68 mg subdermal 68 mg subdermal DIRECTED 04/24/23 04/07/25 History implant (Nexplanon) hydroxychloroquine 200 mg tablet 200 mg PO DAILY lupus 08/30/24 04/07/25 History leflunomide 10 mg tablet 10 mg PO DAILY lupus 10/13/24 04/07/25 History ibuprofen 600 mg tablet 600 mg PO Q6H PRN pain #30 tabs 11/17/24 04/07/25 Rx acetaminophen 325 mg tablet 325 mg PO Q6H PRN fever or pain #7 01/15/25 04/07/25 Rx (Tylenol) tabs New Prescriptions to Start Prescriptions: Allergies Allergy/AdvReac Type Severity Reaction Status Date / Time shellfish derived Allergy Severe Hives Verified 04/07/25 06:28 Exam Data for Last 24 hours Vital signs and Labs for Last 24 Hours: Temp Pulse Resp BP Pulse Ox O2 Del Method 97.0 F L 86 18 108/72 L 93 L Room Air 04/07/25 06:30 04/07/25 06:30 04/07/25 06:30 04/07/25 06:30 04/07/25 06:30 04/07/25 06:30 Laboratory Results - last 24 hr 04/07/25 06:10: Urine HCG, Qual Negative Constitutional Constitutional: no acute distress *Routine HEENT Exam Head: Present normocephalic Eye: Present EOMI ENT: Present mucous membranes moist *Routine Neck Exam Neck: Present full ROM Routine Chest/Breast/Axilla Exam Chest wall: Absent tenderness *Routine Respiratory Exam Respiratory: Absent respiratory distress *Routine Cardiovascular Exam Cardiovascular: Absent tachycardia *Routine Abdominal Exam Abdominal: Present soft *Routine Rectal Exam Rectal:: deferred *Routine Genitalia Exam Genitalia:: deferred *Routine Extremities Exam Extremities: Present full ROM Routine Back/Spine/Pelvis Exam Back/Spine: Present full ROM *Routine Skin Exam Skin: Absent erythema *Routine Neurological Exam Neurological: Present alert Routine Psychiatric Exam Psychiatric: Present normal affect Results Results Lab Results Last 24 Hours:: Laboratory Results - last 24 hr 04/07/25 06:10: Urine HCG, Qual Negative Assessment and Plan *Assessment and plan (1) Status post colostomy: Problem Comment: Status post takedown with diverting loop ileostomy on November 11, 2024 Status: Resolved Category: Medical Code(s): Z93.3 - Colostomy status (2) Diverticulitis: Status: Inactive Category: Medical Code(s): K57.92 - Diverticulitis of intestine, part unspecified, without perforation or abscess without bleeding (3) COPD (chronic obstructive pulmonary disease): Status: Acute Qualifiers: COPD type: unspecified COPD Qualified Code(s): J44.9 - Chronic obstructive pulmonary disease, unspecified Category: Medical Code(s): J44.9 - Chronic obstructive pulmonary disease, unspecified (4) 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: Status: Acute Qualifiers: Serious obesity comorbidity presence: with serious comorbidity Qualified Code(s): E66.813 - Obesity, class 3; E66.2 - Morbid (severe) obesity with alveolar hypoventilation; Z68.42 - Body mass index [BMI] 45.0-49.9, adult Category: Medical Code(s): E66.813 - Obesity, class 3; E66.2 - Morbid (severe) obesity with alveolar hypoventilation; Z68.42 - Body mass index [BMI] 45.0-49.9, adult (5) Rheumatoid arthritis: Status: Acute Qualifiers: Rheumatoid arthritis location: unspecified site Rheumatoid factor presence: unspecified presence Qualified Code(s): M06.9 - Rheumatoid arthritis, unspecified Category: Medical Code(s): M06.9 - Rheumatoid arthritis, unspecified (6) Lupus: Status: Chronic Category: Medical Code(s): M32.9 - Systemic lupus erythematosus, unspecified Plan Plan loop ileostomy takedown I have discussed the risks and benefits including, but not limited to: Bleeding Infection Damage to surrounding tissue Inherent risks of sedation The patient agrees to proceed.
--- NOTE | 2025-04-07 07:10 | EXP.ANES.CKL ---
[facility] Disclaimer: The information contained in this section may have been updated after the patient was seen, as this information can be updated by other users. Medical History Diverticulitis Lupus Rheumatoid arthritis Surgical History History of colectomy History of oral surgery Family History Mother Tumor Father Diabetes Grandfather Diabetes Other Fibromatosis Social History Smoking Status: Current every day smoker tobacco type: cigarettes second hand exposure: Yes alcohol intake: current alcohol intake frequency: holidays/special occasions only substance use type: denies use current occupational status: employed Travel in the last 8 weeks?: None household members: family housing: house marital status: Have you lived/traveled outside US in past 30 days?: No Contact w/someone who lives/traveled outside US past 30 days?: No Exposure to someone with infectious disease in past 14 days?: No Do you have a fever (greater than 100.4 F or 38 C)?: No Have you tested positive for COVID-19?: No Exposed to someone with COVID-19 in past 14 days?: No Do you have a sore throat?: No Do you have a cough?: No Do you have any weakness?: No Do you have any diarrhea?: No Are you experiencing any unusual bleeding?: No Do you have any muscle aches/pain?: No Do you have any abdominal pain?: No Are you experiencing loss of taste or smell?: No [facility] Anesthesia Checklist Patient Identification Patient Identification: Arm Band and Family Structural Data Admitted From: Home Planned Operative Procedure/s: Loop Ileostomy takedown. Consent for Planned Operative Procedure(s) Verified: Yes Verified Documents: Surgical Consent and History and Physical NPO Status Verified Time NPO: 00:00 Additional verifications Patient : No Anesthesia Reactions: No Hx Blood Transfusions: No Blood Transfusion Reaction: No Cephalosporin Allergy: No Previous Colonoscopy: Yes Airway Assessment Mallampati Score:: Class II C-Spine Mobility Assessed: Yes TMJ Mobility Assessed: Yes Dentition: Good Dentition Neurological Assessment Level of Consciousness: Awake, Alert, Appropriate and Follows Commands Hx Seizures: No Numbness or tingling in extremities: No Anesthesia Plan Anesthesia Risk discussed: Yes ASA Class: II Anesthesia Type: General
--- NOTE | 2025-04-07 07:28 | HMH.PHAINT1 ---
Pharmacy Intervention Comments: MEDICATION RECONCILIATION COMPLETED ON PATIENT USING EXTERNAL FILL HISTORY FROM PHARMACY. -AVIS GRIFFIN, HEIDID
[2025-04-07] MEDS: CEFAZOLIN 2GM VIAL 2 GM (07:30)
[2025-04-07] MEDS: METRONIDAZ/SOD CHL 500 MG/100 ML PIGGYBACK 100 MG IV (07:50)
--- NOTE | 2025-04-07 09:47 | EXP.OP.NOTE ---
Date of procedure: 04/07/25 Pre-op Diagnosis:: Prior creation of diverting loop ileostomy History of diverticulitis requiring sigmoid resection Post-op Diagnosis:: Same Procedure performed:: Takedown of loop ileostomy Surgeon:: Rod Nieves MD Tobacco Cloth Reclaimer(s):: Dr. Ascencion Leigh Anesthesia: GETA Estimated blood loss (mL): 50 Operative findings:: Multiple abdominal wall hernias status post prior surgical intervention Loop ileostomy creation in close proximity to ileocecal valve [id number] hand-sewn anastomosis secondary to proximity to ileocecal valve Operative note:: After informed consent was obtained, the patient was taken to the operating room and placed in the supine position. General anesthesia was induced. A skin-level closure of the loop ileostomy was completed. The patient's abdomen was prepped and draped in a sterile fashion. An incision was made around the stoma with electrocautery. The deep subcutaneous tissue was dissected with a combination of blunt dissection, sharp dissection, and electrocautery. A large complex defect with incarcerated small bowel contents was encountered. Blunt dissection, sharp dissection, and electrocautery was utilized to free multiple adhesions. Evaluation revealed multiple abdominal wall hernias in addition to the stomal herniation. The diverting loop ileostomy was carefully elevated. Close proximity to the ileocecal valve was noted. The decision was made to proceed with a [id number] hand-sewn anastomosis. After [id number] imbrication (backwall) was completed with 3-0 Nurolon, both small bowel limbs were opened with electrocautery. Running Vicryl suture was utilized to reapproximate the serosa/mucosal margins. The front wall serosal margin was then closed with interrupted 3-0 Nurolon. The mesenteric defect was closed with running Vicryl suture. Attention was then turned to fascial closure. As stated above the patient had multiple herniations and appropriate circumferential fascial margin was not available. A mass closure was completed with #2 Novafil after resection of the hernia sac with electrocautery. The deep subcutaneous tissue was reapproximated with running Vicryl suture. Skin was then closed with a combination of kelsi and interrupted 4-0 nylon. Dressings were applied and the patient was transferred to recovery in stable condition after extubation. Condition: stable Disposition: PACU Specimens:: Loop ileostomy margin Complications:: No immediate
--- NOTE | 2025-04-07 10:04 | P.PNANES_ITS ---
[facility] Anesthesia Record Part I Anesthesia Record I Intake, IV Amount: 1,500 Hydration: Adequate Estimated blood loss (mL): 50 Urine output (mL): 500 Blood Products used (#): none Blood Pressure: 140/77 SaO2: 94 Pulse Rate: 83 Airway Patency: Patent Respiratory Rate: 14 Temperature: 97.2 F Patient is:: Drowsy and Stable Stable to PACU at:: 09:51
[2025-04-07] MEDS: MORPHINE 2MG/ML SYRINGE 2 MG IV (10:15)
[2025-04-07] MEDS: ONDANSETRON 4MG/2ML VIAL 4 MG IV ×2 (10:20→17:11)
[2025-04-07] MEDS: KETOROLAC 30MG/ML VIAL 15 MG IV (11:17)
[2025-04-07] MEDS: LACTATED RINGERS 1000ML 1,000 ML 125 ML IV ×2 (11:29→20:11)
[2025-04-07] MEDS: MORPHINE 10MG/ML 30ML PCA IV ×2 (11:45→19:21)
[2025-04-07] MEDS: PIPERACILLIN/TAZO 4.5 GM in 0.9 % SODIUM CHLORIDE 100 ML IV ×2 (12:37→17:56)
[2025-04-07 14:10] LABS: Microscopic,Cath URINE MICROSCOPIC (MICROSCOPIC)
[2025-04-07 14:39] LABS: Appearance,Urine/Cath CLEAR (Clear); Bilirubin,Cath Negative (Negative); Blood, Urine/Cath Negative (Negative); Color,Urine/Cath YELLOW (Yellow); Glucose,Urine/Cath (UA) Negative (Negative); Ketones,Urine/Cath Negative (Negative); Leukocyte Esterase,Cath Negative (Negative); Nitrate,Cath POSITIVE (Negative); Protein,Urine/Cath Negative (Negative); Urobilinogen,Cath 0.2 EU/dl (0.2)
--- NOTE | 2025-04-07 14:56 | P.PNANES_ITS ---
[facility] Anesthesia Record Part II Anesthesia Record Part II Discharge Time: 10:21 Destination: Medical Surgical Department PACU nurse assessment reviewed?: Yes Patient Condition:: Good Anesthesia Complications:: None Swallowing reflex intact?: Yes Airway Patency: Patent Cyanosis?: No Blood Pressure: 145/83 SaO2: 100 Respiratory Rate: 16 Pulse Rate: 72 Temperature: 97.2 F Mental Status: Alert & Oriented Pain level:: 4 Nausea and/or vomitting:: None Intake, IV Amount: 0 Hydration: Adequate
--- NOTE | 2025-04-07 14:56 | PC.NURSE ---
Addendum entered by Argelia Haynes RN 04/07/25 15:48: 15 MG CLEARED FROM CANT GANG SAWYER PUMP. Original Note: PT IS RESTING IN BED. ALERT AND ORIENTED X4. MEDICATED PER MAR WITH CANT GANG SAWYER PUMP. POST OP VSS. DRESSING TO ABDOMEN C/D/I. LUNG SOUNDS CLEAR. PT REFUSED SKUDS. TOLERATING ICE CHIPS. WILL CONTINUE TO MONITOR.
[2025-04-07 15:02] LABS: Specific Gravity, Urine/Cath 1.028 (1.005-1.030)
[2025-04-07 16:15] LABS: Bacteria,Urine/Cath 1+ /lpf; Mucus,Urine/Cath 1+ /lpf; WBC,Urine/Cath Occasional #/hpf (0-3)
--- NOTE | 2025-04-07 18:00 | PC.NURSE ---
PT REQUESTED TO HAVE DANGELO REMOVED AND TO GET OOB. NOTIFIED AND HE STATED THAT WOULD BE FINE.
--- NOTE | 2025-04-07 19:02 | PC.NURSE ---
urinary catheter removed at 1814. pt tolerated well. up to chair as tolerated.
[2025-04-07] MEDS: SODIUM CHLORIDE 0.9% 10ML VIAL 10 ML IV (20:56)
[2025-04-07] MEDS: PANTOPRAZOLE 40MG VIAL 40 MG IV (20:56)
--- NOTE | 2025-04-07 22:45 | PC.NURSE ---
patient has ambulated the hallway on two separate occasions (roughly 175 ft each occasion). burping but not passing gas. voided 2x since removing catheter.
--- NOTE | 2025-04-07 22:48 | PC.NURSE ---
13 cleared from PUBLIC HEALTH PHYSICIAN pump at 1920
[2025-04-08] VITALS (12 sets, daily range): BP systolic 105–139; BP diastolic 62–78; PULSE 74–98; RESP 14–24; TEMP 36.2–37.1; O2SAT 94–99; BMI 42.5
[2025-04-08] MEDS: PIPERACILLIN/TAZO 4.5 GM in 0.9 % SODIUM CHLORIDE 100 ML IV ×2 (01:33→06:14)
[2025-04-08] MEDS: ONDANSETRON 4MG/2ML VIAL 4 MG IV ×2 (01:35→22:52)
[2025-04-08] MEDS: KETOROLAC 30MG/ML VIAL 15 MG IV ×2 (02:58→22:52)
[2025-04-08] MEDS: MORPHINE 10MG/ML 30ML PCA IV ×2 (04:24→18:45)
--- NOTE | 2025-04-08 04:26 | PC.NURSE ---
cleared 29.5mg from AUTOMATED EQUIPMENT ENGINEER TECHNICIAN pump
[2025-04-08] MEDS: LACTATED RINGERS 1000ML 1,000 ML 125 ML IV (05:19)
[2025-04-08 06:06] LABS: Chloride 107 mmol/L (98-107); Potassium 3.3 mmoL/L (3.5-5.1); Sodium 131 mmol/L (136-145)
[2025-04-08 06:09] LABS: Anion Gap 4.3 mEq/L (5-15); Blood Urea Nitrogen 7 mg/dl (7-17); Calcium 7.6 mg/dl (8.4-10.2); Carbon Dioxide 23 mmol/L (22.0-30.0); Creatinine Clearance Estimated 107 mL/min (50-200); Estimated Glomerular Filt Rate 117 ml/min (>60); GFR (African American) 141 ML/MIN (>60); Glucose 87 mg/dl (74-100)
[2025-04-08 06:16] LABS: Basophils # 0.1 K/mm3 (0-0.2); Basophils % 0.5 % (0.1-2.0); Eosinophils # 0.2 Kmm3 (0.0-0.4); Eosinophils % 1.2 % (0.1-12.0); Hematocrit 37.4 % (37.0-47.0); Hemoglobin 12.6 g/dL (12.2-16.2); Immature Granulocytes # 0.04 10^3uL; Immature Granulocytes % 0.3 %; Lymphocytes # 1.3 K/mm3 (0.7-4.5); Lymphocytes % 10.1 % (10-50); Mean Corpuscular HGB Conc 33.7 g/dL (31.8-35.4); Mean Corpuscular Hemoglobin 29.4 pg (27.0-31.2); Mean Corpuscular Volume 87.2 fl (81-99); Mean Platelet Volume 9.7 fl (7.4-10.4); Monocytes # 1.6 K/mm3 (0.1-1.0); Monocytes % 12.5 % (1.7-9.3); Neutrophils # 9.8 K/mm3 (1.8-7.8); Neutrophils % 75.4 % (37.0-80.0); Nucleated Red Blood Cells # 0 10^3/uL; Nucleated Red Blood Cells % 0 %; Platelet Count 306 K/mm3 (142-424); Red Blood Count 4.29 M/mm3 (4.20-5.40); Red Cell Distribution Width 14.3 % (11.5-17.5); Red Cell Distribution Width-SD 45.3 fL
--- NOTE | 2025-04-08 06:20 | PC.NURSE ---
cleared DRYWALL APPLICATION SUPERVISOR pump 5mg
[2025-04-08 06:27] LABS: MANUAL DIFFERENTIAL MANUAL DIFFERENTIAL (MANUAL DIFF)
[2025-04-08 08:04] LABS: Eosinophils % 2 % (0-3); Lymphocytes % 11 % (10-50); Monocytes % 9 % (2-9); Neutrophils % 77 % (42-76); RBC Morphology Normal; Total Cells Counted 100
[2025-04-08 08:05] LABS: Platelet Estimate Normal
[2025-04-08] MEDS: ENOXAPARIN 40MG/0.4ML SYRINGE 40 MG SUBCUT ×2 (08:23→21:26)
--- NOTE | 2025-04-08 10:01 | P.PN_ITS ---
Subjective Patient reports: no new complaints Narrative: Ambulating. Exam Data for Last 24 hours Vital signs and Labs for Last 24 Hours: Temp Pulse Resp BP Pulse Ox O2 Del Method 97.8 F 79 20 119/72 98 Room Air 04/08/25 08:00 04/08/25 08:00 04/08/25 08:00 04/08/25 08:00 04/08/25 08:00 04/08/25 09:15 Laboratory Results - last 24 hr 04/07/25 07:25: Urine Color Yellow, Urine Appearance Clear, Urine pH 6.0, Ur Specific [place] 1.028, Urine Protein Negative, Urine Glucose (UA) Negative, Urine Ketones Negative, Urine Blood Negative, Urine Nitrate Positive A, Urine Bilirubin Negative, Urine Urobilinogen 0.2, Ur Leukocyte Esterase Negative, Urine RBC 3-5, Urine WBC Occasional, Ur Squamous Epith Cells 3-5, Urine Bacteria 1+ 04/08/25 05:30: WBC 13.0 H, RBC 4.29, Hgb 12.6, Hct 37.4, MCV 87.2, MCH 29.4, MCHC 33.7, RDW 14.3, Plt Count 306, MPV 9.7, Neut % (Auto) 75.4, Lymph % (Auto) 10.1, [place] % (Auto) 12.5 H, Eos % (Auto) 1.2, Baso % (Auto) 0.5, Neut # (Auto) 9.8 H, Lymph # (Auto) 1.3, [place] # (Auto) 1.6 H, Eos # (Auto) 0.2, Baso # (Auto) 0.1, Total Counted 100, Neutrophils % (Manual) 77 H, Lymphocytes % (Manual) 11, Monocytes % (Manual) 9, Eosinophils % (Manual) 2, Basophils % (Manual) 1.0, Platelet Estimate Normal, RBC Morphology Normal, Sodium 131 L, Potassium 3.3 L, Chloride 107, Carbon Dioxide 23, Anion Gap 4.3 L, BUN 7, Creatinine 0.60, Estimated Creat Clear 107, Estimated GFR 117, Est GFR ( Amer) 141, Glucose 87, Calcium 7.6 L I & O for Last 24 hours: Intake & Output 04/05/25 04/06/25 04/07/25 04/08/25 11:59 11:59 11:59 11:59 Intake Total 1500 / 1500 2259 / 2259 Output Total 1550 / 1550 Balance 1500 / 1500 709 / 709 Weight 239 lb 14.4 oz Constitutional Constitutional: no acute distress *Routine Respiratory Exam Respiratory: Absent respiratory distress *Routine Cardiovascular Exam Cardiovascular: Absent tachycardia *Routine Abdominal Exam Comments: Dressings intact. No spreading cellulitis. Progress Note: A&P Assessment and plan (1) Ileostomy in place: Problem details: Loop ileostomy takedown April 07, 2025 Status: Acute Assessment and plan: Overall, doing well postoperative day 1 status post loop ileostomy takedown. 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 Await return of bowel function
[2025-04-08] MEDS: KCl 10mEq/100ml 100 ML 100 MEQ IV (10:21)
[2025-04-08] MEDS: POTASSIUM CHLORIDE 10 MEQ, LIDOCAINE HCL/PF 3 ML in 0.9 % SODIUM CHLORIDE 100 ML 108 MEQ IV ×3 (14:30→17:06)
--- NOTE | 2025-04-08 17:16 | PC.NURSE ---
pt is A&Ox4. remains on room air tolerating well. VSS. pt has ambulated x2 in hallway via standby assist. electorate officer pump in place. IV potassium ordered. pt unable to tolerate. verified with MD to add lidocaine to potassium. MD agreed pt tolerating that well. npo with ice chips throughout shift. pt states she thinks she is passing gas . ambulates to bathroom via standby assist. abdominal dressing C-D-I. call light within reach. no further requests at this time.
--- NOTE | 2025-04-08 18:12 | PC.NURSE ---
life science research assistant pump cleared at 24 mg.
--- NOTE | 2025-04-08 19:12 | PC.NURSE ---
SHELLFISH BED WORKER pump alarmed it was complete. new vial placed in pump.
[2025-04-08] MEDS: PANTOPRAZOLE 40MG VIAL 40 MG IV (21:26)
[2025-04-09] VITALS (9 sets, daily range): BP systolic 114–123; BP diastolic 60–68; PULSE 75–100; RESP 14–22; TEMP 36.6–37.3; O2SAT 96–100; BMI 43.9
[2025-04-09] MEDS: LACTATED RINGERS 1000ML 1,000 ML 125 ML IV (02:40)
--- NOTE | 2025-04-09 04:04 | PC.NURSE ---
Pt remains on v/s Q2 hr and bed alarm set due to ONSHORE DIVER pump. V/s, ox4. Pt stated she's been passing gas and able to tolerate ice chips just fine. No acute events to report. Plan of care ongoing.
[2025-04-09 07:36] LABS: Basophils # 0.1 K/mm3 (0-0.2); Basophils % 0.6 % (0.1-2.0); Eosinophils # 0.2 Kmm3 (0.0-0.4); Hemoglobin 11.9 g/dL (12.2-16.2); Immature Granulocytes # 0.04 10^3uL; Immature Granulocytes % 0.4 %; Lymphocytes # 1.4 K/mm3 (0.7-4.5); Lymphocytes % 13.5 % (10-50); Mean Corpuscular HGB Conc 32.2 g/dL (31.8-35.4); Mean Corpuscular Hemoglobin 28.4 pg (27.0-31.2); Mean Corpuscular Volume 88.3 fl (81-99); Mean Platelet Volume 9.6 fl (7.4-10.4); Monocytes # 1.4 K/mm3 (0.1-1.0); Monocytes % 13.8 % (1.7-9.3); Neutrophils # 7.1 K/mm3 (1.8-7.8); Neutrophils % 69.7 % (37.0-80.0); Nucleated Red Blood Cells # 0 10^3/uL; Nucleated Red Blood Cells % 0 %; Platelet Count 308 K/mm3 (142-424); Red Blood Count 4.19 M/mm3 (4.20-5.40); Red Cell Distribution Width 13.8 % (11.5-17.5); Red Cell Distribution Width-SD 44.5 fL; White Blood Count 10.2 K/mm3 (4.8-10.8)
[2025-04-09 07:39] LABS: Chloride 106 mmol/L (98-107); Sodium 132 mmol/L (136-145)
[2025-04-09 07:40] LABS: Potassium 3.4 mmoL/L (3.5-5.1)
[2025-04-09 07:42] LABS: Blood Urea Nitrogen 6 mg/dl (7-17); Creatinine Clearance Estimated 107 mL/min (50-200); Estimated Glomerular Filt Rate 117 ml/min (>60); GFR (African American) 141 ML/MIN (>60)
[2025-04-09 07:43] LABS: Anion Gap 4.4 mEq/L (5-15); Carbon Dioxide 25 mmol/L (22.0-30.0); Glucose 77 mg/dl (74-100)
[2025-04-09] MEDS: ENOXAPARIN 40MG/0.4ML SYRINGE 40 MG SUBCUT ×2 (08:16→20:31)
--- NOTE | 2025-04-09 08:25 | PC.NURSE ---
26.1mg cleared from AREA LOSS PREVENTION MANAGER pump at this time
[2025-04-09] MEDS: POTASSIUM CHLORIDE 20MEQ TAB 20 MEQ PO ×2 (09:53→20:32)
--- NOTE | 2025-04-09 09:56 | EXP.SURG.PN ---
Subjective Patient reports: feels better, flatus and no bowel movement Exam Data for Last 24 hours Vital signs and Labs for Last 24 Hours: Temp Pulse Resp BP Pulse Ox O2 Del Method 98.0 F 88 22 117/66 98 Room Air 04/09/25 08:00 04/09/25 08:00 04/09/25 08:00 04/09/25 08:00 04/09/25 08:00 04/09/25 09:00 Laboratory Results - last 24 hr 04/09/25 06:55: WBC 10.2, RBC 4.19 L, Hgb 11.9 L, Hct 37.0, MCV 88.3, MCH 28.4, MCHC 32.2, RDW 13.8, Plt Count 308, MPV 9.6, Neut % (Auto) 69.7, Lymph % (Auto) 13.5, [place] % (Auto) 13.8 H, Eos % (Auto) 2.0, Baso % (Auto) 0.6, Neut # (Auto) 7.1, Lymph # (Auto) 1.4, [place] # (Auto) 1.4 H, Eos # (Auto) 0.2, Baso # (Auto) 0.1, Sodium 132 L, Potassium 3.4 L, Chloride 106, Carbon Dioxide 25, Anion Gap 4.4 L, BUN 6 L, Creatinine 0.60, Estimated Creat Clear 107, Estimated GFR 117, Est GFR ( Amer) 141, Glucose 77, Calcium 8.0 L I & O for Last 24 hours: Intake & Output 04/06/25 04/07/25 04/08/25 04/09/25 11:59 11:59 11:59 11:59 Intake Total 1500 / 1500 2259 / 2259 540 / 540 Output Total 1650 / 1650 1275 / 1275 Balance 1500 / 1500 609 / 609 -735 / -735 Weight 239 lb 14.4 oz 247 lb 14.4 oz Microbiology Reports for the Last 24 Hours: Microbiology 04/07/25 07:25 Urine,Catheterized Urine Culture - Final No growth. Constitutional Constitutional: no acute distress *Routine Respiratory Exam Respiratory: Absent respiratory distress *Routine Cardiovascular Exam Cardiovascular: Absent tachycardia *Routine Abdominal Exam Comments: Incision clean, dry, and intact. No erythema. Progress Note: A&P Assessment and plan (1) Ileostomy in place: Problem details: Loop ileostomy takedown April 07, 2025 Status: Acute Assessment and plan: Overall, doing well postoperative day 2 status post loop ileostomy takedown. 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 Slowly advance diet DC DIRECTOR RADIATION ONCOLOGY when tolerating diet
[2025-04-09] MEDS: MORPHINE 10MG/ML 30ML PCA IV (10:25)
--- NOTE | 2025-04-09 16:12 | PC.NURSE ---
pt tolerated full liquids at lunch time. per Dr. Nieves nursing communication order- okay to d/c ACQUISITION COST ESTIMATOR pump if tolerated diet. ACQUISITION COST ESTIMATOR pump discontinued. cleared 10mg before discontinuing. wasted the rest of the morphine vial in omni.
--- NOTE | 2025-04-09 18:01 | PC.NURSE ---
pt is A&Ox4. vital signs stable tolerating room air. IV fluids infusing. Pt tolerating full liquids. MANAGER PRODUCT DESIGN pump d/c per Dr. Nieves's nursing communication order. Pt has ambulated multiple times in the hallway this shift. Pt reports multiple bowel movements and passing gas. Pt resting comfortably with no further needs voiced at this time. Call light within reach
[2025-04-09] MEDS: HYDROCODONE/APAP 5/325 MG TABLET 1 TAB PO (18:09)
[2025-04-09] MEDS: PANTOPRAZOLE 40MG VIAL 40 MG IV (20:32)
[2025-04-10] VITALS: BP 141/82; PULSE 77; PULSE 85; RESP 14; TEMP 36.9; O2SAT 98
[2025-04-10] MEDS: HYDROCODONE/APAP 5/325 MG TABLET 1 TAB PO (00:26)
[2025-04-10 04:00] VITALS: BP 108/56; PULSE 75; PULSE 80; RESP 20; TEMP 36.7; O2SAT 96; BMI 43.8
[2025-04-10] MEDS: LACTATED RINGERS 1000ML 1,000 ML 50 ML IV (05:27)
--- NOTE | 2025-04-10 06:02 | PC.NURSE ---
Pt tolerating diet and fluids. V/s, ox4, family at bedside during shift. Pt has been getting up to the restroom by herself without issue. Incision site is dry, clean, and pink. Pt c/o pain once on shift, treated per JAN. Pt stated she's passing gas and had 4 bowel movements. No acute events to report. Plan of care ongoing.
[2025-04-10 06:28] LABS: Basophils % 0.4 % (0.1-2.0); Eosinophils # 0.3 Kmm3 (0.0-0.4); Eosinophils % 3.5 % (0.1-12.0); Hematocrit 36.1 % (37.0-47.0); Hemoglobin 11.7 g/dL (12.2-16.2); Immature Granulocytes # 0.04 10^3uL; Immature Granulocytes % 0.5 %; Lymphocytes # 1.2 K/mm3 (0.7-4.5); Lymphocytes % 14.7 % (10-50); Mean Corpuscular HGB Conc 32.4 g/dL (31.8-35.4); Mean Corpuscular Hemoglobin 28.3 pg (27.0-31.2); Mean Corpuscular Volume 87.2 fl (81-99); Mean Platelet Volume 9.5 fl (7.4-10.4); Monocytes # 1.3 K/mm3 (0.1-1.0); Monocytes % 16.9 % (1.7-9.3); Nucleated Red Blood Cells # 0 10^3/uL; Nucleated Red Blood Cells % 0 %; Platelet Count 336 K/mm3 (142-424); Red Blood Count 4.14 M/mm3 (4.20-5.40); Red Cell Distribution Width-SD 44.6 fL; White Blood Count 7.8 K/mm3 (4.8-10.8)
[2025-04-10 06:32] LABS: Chloride 108 mmol/L (98-107); Sodium 136 mmol/L (136-145)
[2025-04-10 06:33] LABS: Potassium 3.6 mmoL/L (3.5-5.1)
[2025-04-10 06:36] LABS: Anion Gap 3.6 mEq/L (5-15); Calcium 8.2 mg/dl (8.4-10.2); Carbon Dioxide 28 mmol/L (22.0-30.0); Creatinine Clearance Estimated 107 mL/min (50-200); Estimated Glomerular Filt Rate 117 ml/min (>60); GFR (African American) 141 ML/MIN (>60); Glucose 111 mg/dl (74-100)
[2025-04-10 07:17] LABS: Blood Urea Nitrogen < 2 mg/dl (7-17)
[2025-04-10 08:00] VITALS: BP 124/74; PULSE 86; PULSE 90; RESP 18; TEMP 36.6; O2SAT 96
[2025-04-10] MEDS: POTASSIUM CHLORIDE 20MEQ TAB 20 MEQ PO (08:06)
[2025-04-10] MEDS: ENOXAPARIN 40MG/0.4ML SYRINGE 40 MG SUBCUT (08:06)
--- NOTE | 2025-04-10 09:29 | EXP.SURG.PN ---
Subjective Patient reports: no new complaints, feels better, flatus and bowel movement Exam Data for Last 24 hours Vital signs and Labs for Last 24 Hours: Temp Pulse Resp BP Pulse Ox O2 Del Method 97.9 F 86 18 124/74 96 Room Air 04/10/25 08:00 04/10/25 08:00 04/10/25 08:00 04/10/25 08:00 04/10/25 08:00 04/10/25 08:00 Laboratory Results - last 24 hr 04/10/25 05:45: WBC 7.8, RBC 4.14 L, Hgb 11.7 L, Hct 36.1 L, MCV 87.2, MCH 28.3, MCHC 32.4, RDW 14.0, Plt Count 336, MPV 9.5, Neut % (Auto) 64.0, Lymph % (Auto) 14.7, [place] % (Auto) 16.9 H, Eos % (Auto) 3.5, Baso % (Auto) 0.4, Neut # (Auto) 5.0, Lymph # (Auto) 1.2, [place] # (Auto) 1.3 H, Eos # (Auto) 0.3, Baso # (Auto) 0.0, Sodium 136, Potassium 3.6, Chloride 108 H, Carbon Dioxide 28, Anion Gap 3.6 L, BUN < 2 L D, Creatinine 0.60, Estimated Creat Clear 107, Estimated GFR 117, Est GFR ( Amer) 141, Glucose 111 H D, Calcium 8.2 L I & O for Last 24 hours: Intake & Output 04/07/25 04/08/25 04/09/25 04/10/25 11:59 11:59 11:59 11:59 Intake Total 1500 / 1500 2259 / 2259 540 / 540 1180 / 1180 Output Total 1650 / 1650 1275 / 1775 2049 Balance 1500 / 1500 609 / 609 -735 / -1235 -870 / -870 Weight 239 lb 14.4 oz 247 lb 14.4 oz 247 lb 3.996 oz Microbiology Reports for the Last 24 Hours: Microbiology 04/07/25 07:25 Urine,Catheterized Urine Culture - Final No growth. Constitutional Constitutional: no acute distress *Routine Respiratory Exam Respiratory: Absent respiratory distress *Routine Cardiovascular Exam Cardiovascular: Absent tachycardia *Routine Abdominal Exam Comments: Incision clean, dry, and intact. No erythema. Progress Note: A&P Assessment and plan (1) Ileostomy in place: Problem details: Loop ileostomy takedown April 07, 2025 Status: Acute Assessment and plan: Overall, doing well postoperative day 3 status post loop ileostomy takedown. Ambulating. Bowel function returned. (2) Hypokalemia: Status: Resolved Assessment and plan: Potassium normal this a.m. 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 Continue to slowly advance diet at home
--- NOTE | 2025-04-10 09:36 | P.DS_ITS ---
General Admission date:: 04/07/25 Discharge date: 04/10/25 HPI HPI HPI: The patient presents for ileostomy takedown. Forwarded from office visit dated March 09, 2025: The patient returns for follow-up status post Gastrografin enema. She is without new complaint. She states that she is ready for ostomy reversal if possible . Gastrografin enema reviewed. Preliminary report shows minimal diverticular change in the distal colon. No colonic stricture noted. No extravasation of contrast consistent with leak was noted. Most recent laboratory report dated November 14, 2024 reviewed. WBC 9.0, hemoglobin 10.7, potassium 3.2, and creatinine 0.5. Hospital Course Hospital Course Hospital Course: The patient underwent ileostomy takedown. Please see operative report for detail. Postoperatively, she progressed well. Signs of bowel function return noted on postoperative day 2. On the morning of postoperative day 3 she was deemed appropriate for discharge. Condition at discharge: At discharge the patient was afebrile with stable and normal vital signs. She was ambulating without difficulty and tolerating a full liquid diet. Exam Data for Last 24 hours Vital signs and Labs for Last 24 Hours: Temp Pulse Resp BP Pulse Ox O2 Del Method 97.9 F 86 18 124/74 96 Room Air 04/10/25 08:00 04/10/25 08:00 04/10/25 08:00 04/10/25 08:00 04/10/25 08:00 04/10/25 08:00 Laboratory Results - last 24 hr 04/10/25 05:45: WBC 7.8, RBC 4.14 L, Hgb 11.7 L, Hct 36.1 L, MCV 87.2, MCH 28.3, MCHC 32.4, RDW 14.0, Plt Count 336, MPV 9.5, Neut % (Auto) 64.0, Lymph % (Auto) 14.7, [place] % (Auto) 16.9 H, Eos % (Auto) 3.5, Baso % (Auto) 0.4, Neut # (Auto) 5.0, Lymph # (Auto) 1.2, [place] # (Auto) 1.3 H, Eos # (Auto) 0.3, Baso # (Auto) 0.0, Sodium 136, Potassium 3.6, Chloride 108 H, Carbon Dioxide 28, Anion Gap 3.6 L, BUN < 2 L D, Creatinine 0.60, Estimated Creat Clear 107, Estimated GFR 117, Est GFR ( Amer) 141, Glucose 111 H D, Calcium 8.2 L I & O for Last 24 hours: Intake & Output 04/07/25 04/08/25 04/09/25 04/10/25 11:59 11:59 11:59 11:59 Intake Total 1500 / 1500 2259 / 2259 540 / 540 1180 / 1180 Output Total 1650 / 1650 1275 / 1775 2049 Balance 1500 / 1500 609 / 609 -735 / -1235 -870 / -870 Weight 239 lb 14.4 oz 247 lb 14.4 oz 247 lb 3.996 oz Microbiology Reports for the Last 24 Hours: Microbiology 04/07/25 07:25 Urine,Catheterized Urine Culture - Final No growth. Constitutional Constitutional: no acute distress *Routine HEENT Exam Head: Present normocephalic Eye: Present EOMI and PERRL ENT: Present mucous membranes moist *Routine Neck Exam Neck: Present supple; Absent lymphadenopathy *Routine Respiratory Exam Respiratory: Present CTA bilaterally *Routine Cardiovascular Exam Cardiovascular: Present RRR *Routine Abdominal Exam Abdominal: Present soft and normoactive bowel sounds; Absent tenderness *Routine Extremities Exam Extremities: Absent cyanosis, clubbing or edema *Routine Skin Exam Skin: Present warm; Absent rash *Routine Neurological Exam Neurological: Present alert and oriented X3 Results Data Completed and Pending Labs on day of discharge: Labs from last 24 hours 04/10/25 05:45 WBC 7.8 RBC 4.14 L Hgb 11.7 L Hct 36.1 L MCV 87.2 MCH 28.3 MCHC 32.4 RDW 14.0 Plt Count 336 MPV 9.5 Neut % (Auto) 64.0 Lymph % (Auto) 14.7 [place] % (Auto) 16.9 H Eos % (Auto) 3.5 Baso % (Auto) 0.4 Neut # (Auto) 5.0 Lymph # (Auto) 1.2 [place] # (Auto) 1.3 H Eos # (Auto) 0.3 Baso # (Auto) 0.0 Sodium 136 Potassium 3.6 Chloride 108 H Carbon Dioxide 28 Anion Gap 3.6 L BUN < 2 L D Creatinine 0.60 Estimated Creat Clear 107 Estimated GFR 117 Est GFR ( Amer) 141 Glucose 111 H D Calcium 8.2 L DS: Diagnosis Discharge Diagnosis (1) Ileostomy in place: Status: Acute Code(s): Z93.2 - Ileostomy status Problem details: Loop ileostomy takedown April 07, 2025 (2) Hypokalemia: Status: Resolved Code(s): E87.6 - Hypokalemia (3) Status post colostomy: Status: Resolved Code(s): Z93.3 - Colostomy status Problem details: Status post takedown with diverting loop ileostomy on November 11, 2024 (4) Diverticulitis: Status: Inactive Code(s): K57.92 - Diverticulitis of intestine, part unspecified, without perforation or abscess without bleeding (5) COPD (chronic obstructive pulmonary disease): Status: Acute Code(s): J44.9 - Chronic obstructive pulmonary disease, unspecified Qualifiers: COPD type: unspecified COPD Qualified Code(s): J44.9 - Chronic obstructive pulmonary disease, unspecified (6) 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: Status: Acute Code(s): E66.813 - Obesity, class 3; E66.2 - Morbid (severe) obesity with alveolar hypoventilation; Z68.42 - Body mass index [BMI] 45.0-49.9, adult Qualifiers: Serious obesity comorbidity presence: with serious comorbidity Qualified Code(s): E66.813 - Obesity, class 3; E66.2 - Morbid (severe) obesity with alveolar hypoventilation; Z68.42 - Body mass index [BMI] 45.0-49.9, adult (7) Rheumatoid arthritis: Status: Acute Code(s): M06.9 - Rheumatoid arthritis, unspecified Qualifiers: Rheumatoid arthritis location: unspecified site Rheumatoid factor presence: unspecified presence Qualified Code(s): M06.9 - Rheumatoid arthritis, unspecified (8) Lupus: Status: Chronic Code(s): M32.9 - Systemic lupus erythematosus, unspecified Meds Home Medications and Allergies Home Medications ?Medication ?Instructions ?Recorded ?Confirmed ?Type etonogestrel 68 mg subdermal 68 mg subdermal DIRECT ED 04/24/23 04/07/25 History implant (Nexplanon) acetaminophen 325 mg tablet 325 mg PO Q6HP PRN Mild Pa in 04/07/25 04/07/25 History (Tylenol) (Scale Score 1-4) Held on 04/10/25. Instructions: Resume on 04/15/25. Hold while taking [place] ibuprofen 600 mg tablet 600 mg PO Q6HP PRN Mild Pain 04/07/25 04/07/25 History (Scale Score 1-4) hydrocodone 5 mg-acetaminophen 325 1 tab PO Q6H PRN po st-op pain #17 04/10/25 Rx mg tablet tabs New Prescriptions to Start Prescriptions: hydrocodone-acetaminophen Rod Nieves Allergies Allergy/AdvReac Type Severity Reaction Status Date / Time shellfish derived Allergy Severe Hives Verified 04/07/25 06:28 Discharge Plan Disposition Patient Disposition: Home, Self-Care Discharge Order Discharge Orders: Discharge Order (Routine); Ordered 04/10/25 Ordered By: Rod Nieves Follow up Plan Follow up with: Rod Nieves MD [Staff Physician, General Surgery] - 04/13/25 Prescriptions/Medication Reconciliation: New hydrocodone-acetaminophen 5-325 mg tablet 1 tab PO Q6H PRN (Reason: post-op pain) Qty: 17 0RF Continued Nexplanon 68 mg implant 68 mg subdermal DIRECTED ibuprofen 600 mg tablet 600 mg PO Q6HP PRN (Reason: Mild Pain (Scale Score 1-4)) Held acetaminophen [Tylenol] 325 mg tablet 325 mg PO Q6HP PRN (Reason: Mild Pain (Scale Score 1-4)) Hold Instructions: Resume on 04/15/25. Hold while taking [place] Problem Reconciliation Problems Reviewed?: Yes Patient Discharge Instructions ACTIVITY: Ambulate as tolerated and No heavy lifting DIET: advance to your usual diet Patient Instructions: DI for Surgical Site Infection, DI for Colostomy or Ileostomy Reversal, Catheter-Associated Urinary Tract Infection, Stop Light Pneumonia, Stop Light COPD, Stop Light Infection Print Language: Kinyarwanda Providers Primary Care Provider: Javy Linton Admit Provider: Rod Nieves Attending Provider: Rod Nieves
--- NOTE | 2025-04-11 11:28 | SW/DCPLANNER ---
Spoke with patient on the phone. Patient stated that she is doing very well. Patient stated that she is aware of her upcoming appointments. Patient stated that she is picking up her new medicine today. Patient stated that she has no concerns or questions at this time. Jairon Degroot
== END 2025-04-10 10:40 | disposition home or self-care (01) | DRG 330 ==
LOC: 2ND 10:12
PROVIDERS: Admitting Provider Surgery; PCP Family Medicine; Visit Provider Surgery
PROC: 0DSB0ZZ Reposition Ileum, Open Approach (ICD-10-PCS; CPT 44620; principal; 2025-04-07 07:30)
DX: K94.09 Other complications of colostomy (principal); K57.92 Diverticulitis of intestine, part unspecified, without perforation or abscess without bleeding; Z68.42 Body mass index [BMI] 45.0-49.9, adult; M06.9 Rheumatoid arthritis, unspecified; M32.9 Systemic lupus erythematosus, unspecified; E66.813 Obesity, class 3; J44.9 Chronic obstructive pulmonary disease, unspecified; K43.9 Ventral hernia without obstruction or gangrene; K66.0 Peritoneal adhesions (postprocedural) (postinfection); E87.6 Hypokalemia; Y83.8 Other surgical procedures as the cause of abnormal reaction of the patient, or of later complication, without mention of misadventure at the time of the procedure
CPT/HCPCS: 36415; 51702; 80048; 81001; 81025; 85007; 85025; 87086; 96374; J0690; J1100; J1650; J1885; J2250; J2270; J2405; J2470; J2543; J3010; J3480; J7030; J7120